=== PATIENT | male | born 1940 | race Caucasian/White ===

== ENCOUNTER 2021-09-16 13:04 | Inpatient (IN) | payer MEDICARE, OTHER, SELFPAY ==
[2021-09-16 13:21] VITALS: BMI 20.5
[2021-09-16 13:49] VITALS: BP 121/65; PULSE 74; RESP 18; TEMP 36.9; O2SAT 98
[2021-09-16] MEDS: Pantoprazole Sodium 40 MG Tablet PO (17:01)
[2021-09-16] MEDS: Cefdinir 300 MG Capsule PO (17:01)
[2021-09-16] MEDS: APIXABAN 5 MG TABLET PO (17:01)
[2021-09-16] MEDS: Senna/Docusate Sodium 1 Tablet PO (17:01)
--- NOTE | 2021-09-16 17:48 | NURSING ---
DR. TEODORA NOVAK CALLED FROM [facility] (R' SEEN WHILE AT [facility] FOR [facility]). RINKU HAD BEEN DC'D WHILE THERE. SHE REQUESTED LABS BE FAXED TOMORROW TO [phone]. DR ELENA AWARE. NURSING TO CALL TOMORROW TO UPDATE HER ELIQUIS HAS RESUMED.
[2021-09-16] MEDS: Menthol/Lanolin/Calamine/Znox 113 GM Tube 1 APPLIC TOPICAL (20:04)
[2021-09-16] MEDS: oxyCODONE 5 MG Tablet PO (20:04)
[2021-09-16] MEDS: Atorvastatin Calcium 20 MG Tablet PO (20:05)
[2021-09-16] MEDS: MELATONIN 10 MG TABLET 5 MG PO (20:08)
--- NOTE | 2021-09-16 20:51 | HP.PCM_ITS ---
HPI - General General Date of Admission: 09/16/21 HPI Narrative CATALINA MANCERA, is a 81 Male who presents with following: Catalina lives in [place], [place]. He has a son in [place], [place], and a daughter in [place], [place]. He flew in to [place], [place], to make the circuit and visit his children, grandchildren. 09/01/2021 - 09/09/2021 [facility]. Left leg pain, swelling, left lower extremity cellulitis/abscess, Pasturella bacteremia. Bedside incision and drainage left lower extremity. Vancomycin/Cefepime transitioned to Ceftriaxone, then deescalated to Cefdinir on discharge. 09/03/2021 Platelet transfusion for thrombocytopenia. Empiric steroid therapy for thrombocytopenia. Acute kidney injury improved with IV fluids, holding Losartan. Iron therapy started for anemia. 09/09/20[facility] [place] [place]. 09/16/2021 Admit to TCU with debility, here for rehabilitation, strengthening, prior to discharge home to [place], [place] with . Son lives in [place], and TCU is a lot closer than [place], [place]. [facility] Medical History (Updated 09/16/21 @ 21:[address] Roebrto Carlos Duenas MD) Anemia Atrial fibrillation Home Medications apixaban [Eliquis] 5 mg PO BID 09/16/21 [History Last Taken Unknown] ascorbic acid (vitamin C) [Vitamin C] 1,000 mg PO DAILY 09/16/21 [History Last Taken Unknown] cefdinir 300 mg PO BID 09/16/21 [History Last Taken Unknown] ezetimibe [Zetia] 10 mg PO DAILY 09/16/21 [History Last Taken Unknown] ferrous sulfate 325 mg PO DAILY 09/16/21 [History Last Taken Unknown] melatonin 3 mg PO QHS 09/16/21 [History Last Taken Unknown] oxycodone 5 mg PO Q4H PRN 09/16/21 [History Last Taken Unknown] pantoprazole 40 mg PO BID 09/16/21 [History Last Taken Unknown] polyethylene glycol 3350 [Miralax] 17 g PO DAILY 09/16/21 [History Last Taken Unknown] senna-docusate sodium 1 tab PO BID 09/16/21 [History Last Taken Unknown] simvastatin 40 mg PO QHS 09/16/21 [History Last Taken Unknown] tamsulosin [Flomax] 0.4 mg PO DAILY 09/16/21 [History Last Taken Unknown] Allergy/AdvReac Type Severity Reaction Status Date / Time aspirin AdvReac Hives Verified 09/16/21 13:45 Penicillins AdvReac PT UNSURE Verified 09/16/21 13:45 OF REACTION zolpidem [From Ambien] AdvReac Other Verified 09/16/21 13:45 Family History (Updated 09/16/21 @ 20:[address] Roberto Carlos Duenas MD) Mother Breast cancer Father Pancreatic cancer Surgical History (Updated 09/16/21 @ 20:[address] Roberto Carlos Duenas MD) History of coronary artery stent placement History of incision and drainage Social History (Updated 09/16/21 @ 20:[address] Roberto Carlos Dueans MD) household members: spouse Smoking Status: Former smoker alcohol intake: never substance use type: does not use ROS Constitutional Constitutional: Denies chills, fever(s) or weight gain ENT HEENT: Denies headache(s), nasal congestion or nasal discharge Cardiovascular Cardiovascular: Denies chest pain or palpitations Respiratory/Chest Respiratory/Chest: Denies cough, excessive phlegm production or shortness of breath with exertion Gastrointestinal Gastrointestinal: Denies abdominal pain, nausea or vomiting Genitourinary Genitourinary: Denies dysuria Musculoskeletal Musculoskeletal: Denies joint pain or joint swelling Integumentary Integumentary: Denies rash or wounds Neurologic Neurologic: Denies focal weakness, numbness or tingling Psychiatric Psychiatric: Denies anxiety, auditory hallucinations, depression, homicidal ideation or suicidal ideation Vital Signs Vital Signs Vital Signs: 09/16/21 13:49 09/16/21 14:23 Temperature 98.5 F Temperature Source Temporal Pulse Rate 74 Pulse Rhythm Regular Pulse Strength Normal (2+) Respiratory Rate 18 Respiratory Effort Normal Non-Labored Respiratory Depth Normal Respiratory Pattern Normal Blood Pressure 121/65 H Blood Pressure Mean 83 Blood Pressure Source Monitor Blood Pressure Position Sitting Blood Pressure Location Right Arm Pulse Ox 98 Oxygen Delivery Method Room Air Room Air Weight Weight: 61.405 kg Body Mass Index (BMI) 20.5 Physical Exam Const alert and oriented x3 General Appearance: cooperative HEENT normocephalic Eyes PERRL and EOMs intact bilaterally Neck supple, no JVD and no carotid bruits Resp normal respiratory effort, normal air movement and clear to auscultation bilater ally Cardio regular rate and regular rhythm GI normal to inspection, nondistended, normoactive bowel sounds, non-tender and non-distended Extremity normal capillary refill General Extremity: edema left Skin no rashes or lesions noted General Skin Exam: no breakdown Psych affect normal Appearance: appropriate Assessment & Plan Assessment/Plan (1) Debility: (2) Cellulitis of left lower extremity: (3) Abscess of left lower extremity: (4) Bacteremia: (5) Acute kidney injury: (6) Autoimmune thrombocytopenia: (7) Atrial fibrillation: (8) Iron deficiency anemia: (9) Hypertension: (10) Coronary artery disease: (11) Pulmonary nodules: (12) Elevated PSA: (13) Hyperlipidemia: (14) Gastroesophageal reflux disease: (15) Insomnia: (16) Benign prostate hyperplasia: PLAN: 81 year old male with below past medical history hospitalized for left lower extremity cellulitis/abscess, Pasturella bacteremia, complicated by acute kidney injury, autoimmune thrombocytopenia, anemia, admitted to TCU with debility, here for rehabilitation, strengthening, prior to discharge home to [place], [place] with . * Debility - PT/OT. * Pain - Tylenol 1000mg q6h prn pain (1-5), Oxycodone 5mg q4h prn pain (6-10). * Bowel - Miralax 17gm daily, Senna/colace 1 tablet bid. * Adult immunization - Administer prevnar 13, pneumovax 23, fluzone, covid19 vaccine as appropriate. * DVT prophylaxis - Not necessary, already eliquis. * Atrial fibrillation - Eliquis 5mg twice daily. * Vitamin C deficiency - Vitamin C 1000mg daily. * Hyperlipidemia - Atorvastatin 20mg qhs, Zetia 10mg daily. * Nutrition - Ensure Compact 118ml tidcm, MVI daily. * Iron deficiency anemia - Ferrous sulfate 325mg daily. * Insomnia - Melatonin 5mg qhs. * Skin irritation - Calmoseptine topical bid, Eucerin topical daily. * GERD - Pantoprazole 40mg daily. * BPH - Tamsulosin 0.4mg daily. * Thrombocytopenia - monitor.
[2021-09-17 05:56] LABS: Absolute Lymphocyte Count 1.12 X10^3/uL (0.83-4.51); Absolute Neutrophil Count 4.2 X10^3/uL (2.0-7.7); Basophil# 0.02 X10^3/uL; Basophil% 0.3 % (0-1); Eosinophil# 0.13 X10^3/uL; Eosinophils% 1.9 % (0-5); Hematocrit 25.3 % (40-54); Hemoglobin 7.5 g/dL (13.0-16.5); Lymphocyte # 1.12 X10^3/ul (0.83-4.51); Lymphocyte % 16.7 % (19-41); Mean Corp Hgb Conc 29.6 g/dL (32-36); Mean Corpuscular Hgb 29.9 pg (27.0-32.0); Mean Corpuscular Volume 100.8 fL (80-94); Monocyte# 1.28 X10^3/uL; Monocyte% 19.1 % (0-10); NRBC Flagged by Analyzer 0 % (0-5); Neutrophil # 4.15 X10^3/uL (2.7-7.7); Neutrophil % 61.9 % (47-70); Platelet Count 208 K/mm3 (150-450); RBC Distribution Width CV 15.9 % (11.6-14.6); RBC Distribution Width SD 58.3 fl (35.1-43.9); Red Blood Count 2.51 M/mm3 (4.6-6.2); White Blood Count 6.7 K/mm3 (4.4-11.0)
[2021-09-17 06:32] LABS: Anion Gap 5 (5-15); BUN 25 mg/dL (7-18); BUN/Creat Ratio 44.3 RATIO (10-20); Chloride 109 mmol/L (98-107); Creatinine, Serum 0.56 mg/dL (0.70-1.30); EST Glomerular Filtration Rate 148 mL/min (>60); Est Glom Filt Rate - Afr Amer 179 mL/min (>60); Estimated Creatinine Clearance 52.02 ml/min; Glucose 98 mg/dL (74-106); Potassium 4.7 mmol/L (3.5-5.1); Sodium Level 144 mmol/L (136-145)
[2021-09-17] MEDS: Senna/Docusate Sodium 1 Tablet PO ×2 (06:47→18:23)
[2021-09-17] MEDS: Polyethylene Glycol 3350 17 GM PACKET PO (06:47)
[2021-09-17] MEDS: Pantoprazole Sodium 40 MG Tablet PO (06:47)
[2021-09-17] MEDS: Ezetimibe 10 MG Tablet PO (06:47)
[2021-09-17] MEDS: APIXABAN 5 MG TABLET PO ×2 (06:47→18:23)
[2021-09-17] MEDS: Menthol/Lanolin/Calamine/Znox 113 GM Tube 1 APPLIC TOPICAL ×2 (06:47→18:22)
[2021-09-17] MEDS: Ascorbic Acid 500 MG Tablet 1000 MG PO (07:53)
[2021-09-17] MEDS: Tamsulosin HCl 0.4 MG Capsule PO (07:53)
[2021-09-17 11:00] VITALS: BP 111/51; PULSE 81; RESP 16; TEMP 37.3; O2SAT 97
--- NOTE | 2021-09-17 11:03 | WOUNDNOTE ---
wound photo: left lateral lower leg
[2021-09-17] MEDS: oxyCODONE 5 MG Tablet PO ×2 (11:17→21:37)
[2021-09-17] MEDS: Tuberculin,Purif.prot.deriv. 50 TU/ML Vial 0.1 ML ID (12:16)
[2021-09-17] MEDS: Multivitamins,Therapeutic Tablet 1 TABLET PO (12:16)
[2021-09-17] MEDS: Iron Polysaccharide Complex 150 MG CAPSULE PO (12:16)
--- NOTE | 2021-09-17 14:32 | PCM.PN.RX ---
Progress Note - Pharmacy Subjective: TCU Admission Objective: Allergies aspirin Adverse Reaction (Verified 09/16/21 13:45) Hives Penicillins Adverse Reaction (Verified 09/16/21 13:45) PT UNSURE OF REACTION zolpidem [From Ambien] Adverse Reaction (Verified 09/16/21 13:45) Other Current Medications Generic Name Dose Route Start Last Admin Trade Name Freq PRN Reason Stop Dose Admin Acetaminophen 1,000 mg 09/16/21 21:09 Acetaminophen 500 Mg Tablet PO Q6H PRN PRN Pain Score 1-5 Apixaban 5 mg 09/16/21 18:00 09/17/21 06:47 Apixaban 5 Mg Tablet PO 5 mg BID SENTHIL Administration Ascorbic Acid 1,000 mg 09/17/21 08:00 09/17/21 07:53 Ascorbic Acid 500 Mg Tablet PO 1,000 mg DAILYCM SENTHIL Administration Atorvastatin Calcium 20 mg 09/16/21 22:00 09/16/21 20:05 Atorvastatin Calcium 20 Mg Tablet PO 20 mg QHS SENTHIL Administration Calamine/Phenol 1 applic 09/16/21 22:00 09/17/21 06:47 Menthol/Lanolin/Calamine/Znox 113 Gm Tube TOPICAL 1 applic BID SENTHIL Administration Protocol Ezetimibe 10 mg 09/17/21 06:00 09/17/21 06:47 Ezetimibe 10 Mg Tablet PO 10 mg DAILY SENTHIL Administration Melatonin 5 mg 09/16/21 22:00 09/16/21 20:08 Melatonin 10 Mg Tablet PO 5 mg QHS SENTHIL Administration Multi-Ingredient Cream 1 applic 09/17/21 22:00 Mineral Oil/Petrolatum,White Jar TOPICAL DAILY SENTHIL Protocol Multivitamins 1 tablet 09/17/21 08:00 09/17/21 12:16 Multivitamins,Therapeutic Tablet PO 1 tablet BREAKFAST SENTHIL Administration Nutritional Formula (Lactose Free) 118 ml 09/16/21 17:45 09/17/21 12:20 Ensure Compact 118 Ml Liquid PO 118 ml TIDCM SENTHIL Administration Oxycodone HCl 5 mg 09/16/21 13:35 09/17/21 11:17 Oxycodone 5 Mg Tablet PO 5 mg Q4H PRN Administration Pain (Scale Score 6-10) Pantoprazole Sodium 40 mg 09/17/21 06:00 09/17/21 06:47 Pantoprazole Sodium 40 Mg Tablet PO 40 mg DAILY SENTHIL Administration Polyethylene Glycol 17 gm 09/17/21 06:00 09/17/21 06:47 Polyethylene Glycol 3350 17 Gm Packet PO 17 gm DAILY SENTHIL Administration Polysaccharide Iron Complex 150 mg 09/17/21 08:00 09/17/21 12:16 Iron Polysaccharide Complex 150 Mg Capsule PO 150 mg DAILYCM SENTHIL Administration Senna/Docusate Sodium 1 tablet 09/16/21 18:00 09/17/21 06:47 Senna/Docusate Sodium 1 Tablet PO 1 tablet BID SENTHIL Administration Tamsulosin HCl 0.4 mg 09/17/21 08:30 09/17/21 07:53 Tamsulosin Hcl 0.4 Mg Capsule PO 0.4 mg DAILY@0830 SENTHIL Administration Tuberculin PPD 0.1 ml 09/24/21 10:00 Tuberculin,Purif.Prot.Deriv. 50 Tu/Ml Vial ID 09/24/21 10:01 X1 ONE Problem List (Last Reviewed 09/16/21 @ 14:00 by Jody Galdamez) Benign prostate hyperplasia (Acute) Insomnia (Acute) Gastroesophageal reflux disease (Acute) Hyperlipidemia (Acute) Elevated PSA (Acute) Pulmonary nodules (Acute) Coronary artery disease (Acute) Hypertension (Chronic) Debility (Acute) Iron deficiency anemia (Acute) Atrial fibrillation (Acute) Autoimmune thrombocytopenia (Acute) Acute kidney injury (Acute) Bacteremia (Acute) Abscess of left lower extremity (Acute) Cellulitis of left lower extremity (Acute) Vital Signs Temp Pulse Resp BP Pulse Ox 98.5 F 74 18 121/65 H 98 09/16/21 13:49 09/16/21 13:49 09/16/21 13:49 09/16/21 13:49 09/16/21 13:49 Oxygen Delivery Method Room Air Weight: 61.405 kg Body Mass Index (BMI) 20.5 Sodium 144 mmol/L (136-145) 09/17/21 05:27 Potassium 4.7 mmol/L (3.5-5.1) 09/17/21 05:27 Chloride 109 mmol/L (98-107) H 09/17/21 05:27 Carbon Dioxide 30.0 mmol/L (21.0-32.0) 09/17/21 05:27 Anion Gap 5 (5-15) 09/17/21 05:27 BUN 25 mg/dL (7-18) H 09/17/21 05:27 Creatinine 0.56 mg/dL (0.70-1.30) L 09/17/21 05:27 Est GFR (MDRD) Af Amer 179 mL/min (>60) 09/17/21 05:27 Est GFR (MDRD) Non-Af 148 mL/min (>60) 09/17/21 05:27 BUN/Creatinine Ratio 44.3 RATIO (10-20) H 09/17/21 05:27 Glucose 98 mg/dL (74-106) 09/17/21 05:27 Assessment/Plan: 1. Pain: acetaminophen 1000mg PO Q6H PRN pain 1-5/10 and oxycodone 5mg PO Q4H PRN pain 6-10/10. Please continue to monitor for increased pain, PRN usage, constipation and respiratory depression. 2. Atrial fibrillation: apixaban 5mg PO BID. Please continue to monitor for S/S of bleeding and hemoglobin (last 7.5g/dL). *3. Hyperlipidemia: atorvastatin 20mg PO QHS and ezetimibe 10mg PO daily. Please consider ordering a lipid panel if clinically appropriate. Patient does not have one in the chart. Thanks. Please continue to monitor for muscle pain. 4. Iron deficiency anemia: Ferrex 150mg PO DAILYCM. Please continue to monitor hemoglobin, constipation and dark stools. 5. Insomnia: melatonin 5mg PO QHS. Please continue to monitor for excessive drowsiness. 6. GERD: pantoprazole 40mg PO daily. Please continue to monitor for S/S of GERD and diarrhea. 7. BPH: tamsulosin 0.4mg PO daily. Please continue to monitor for S/S of BPH and BP (last 121/65). 8. Vitamin C deficiency/nutrition: ascorbic acid 1000mg PO DAILYCM and multivitamin 1T PO breakfast. Please continue to monitor. Psychotropic Medications: None Unnecessary Medications: None Bowel Regimen: Miralax 17gm PO daily, senna/docusate 1T PO BID. Please continue to monitor for constipation. Date of Note:: 09/17/21
--- NOTE | 2021-09-17 16:03 | NURSING ---
L:eft message on nurse line for Dr. Iraheta, notfied her that the patient has resumed eliquis
--- NOTE | 2021-09-17 16:11 | NURSING ---
Today's labs faxed to Dr. Joan Iraheta's office.
--- NOTE | 2021-09-17 17:04 | CHAPLAIN ---
Type of Pastoral Visit _x__ Initial Visit ___ Follow-up Visit ___ On-call Visit ___ General Patient Visit ___ Spiritual Assessment ___ Family Conference ___ Bereavement ___ Rapid Response ___ Code Blue ___ Other (describe below) Pastoral Care Referral From _x__ Patient ___ Family ___ Nurse ___ Physician ___ Top Lift And Automatic Window Repairer ___ Turn Machine Operator ___ Other (describe below) Sacrament/Intervention _x__ Active listening ___ Anointing ___ Faith ___ Bereavement ___ Communion _x__ Christina exploration ___ _x__ Life review _x__ Prayer ___ Reconciliation ___ Sacrament of Sick _x__ Supportive presence ___ Wedding ___ Other (describe below) Pastoral Comments patient and family member very pleased to have spiritual care support; this machine woodworking sander and son of patient are acquainted and this was acknowledged and well received for future support; patient gives story of how he came to be in hospital, his life work and recent m[facility]p, his voodoo involvement, and hope for continued support; prayer welcomed
[2021-09-17] MEDS: Acetaminophen 500 MG Tablet 1000 MG PO (18:21)
[2021-09-17] MEDS: Midodrine HCl 5 MG Tablet 10 MG PO (21:37)
[2021-09-17] MEDS: MELATONIN 10 MG TABLET 5 MG PO (21:38)
[2021-09-17] MEDS: Atorvastatin Calcium 20 MG Tablet PO (21:38)
[2021-09-18 05:40] LABS: Hematocrit 23.7 % (40-54)
[2021-09-18] MEDS: Polyethylene Glycol 3350 17 GM PACKET PO (06:49)
[2021-09-18] MEDS: Senna/Docusate Sodium 1 Tablet PO ×2 (06:50→17:00)
[2021-09-18] MEDS: APIXABAN 5 MG TABLET PO ×2 (06:50→17:00)
[2021-09-18] MEDS: Ezetimibe 10 MG Tablet PO (06:50)
[2021-09-18] MEDS: Pantoprazole Sodium 40 MG Tablet PO (06:50)
[2021-09-18] MEDS: Menthol/Lanolin/Calamine/Znox 113 GM Tube 1 APPLIC TOPICAL ×2 (06:51→20:20)
[2021-09-18] MEDS: Midodrine HCl 5 MG Tablet 10 MG PO ×3 (08:16→17:00)
[2021-09-18] MEDS: oxyCODONE 5 MG Tablet PO ×2 (08:16→20:22)
[2021-09-18] MEDS: Iron Polysaccharide Complex 150 MG CAPSULE PO (08:16)
[2021-09-18] MEDS: Multivitamins,Therapeutic Tablet 1 TABLET PO (08:17)
[2021-09-18] MEDS: Ascorbic Acid 500 MG Tablet 1000 MG PO (08:17)
[2021-09-18] MEDS: Tamsulosin HCl 0.4 MG Capsule PO (08:17)
--- NOTE | 2021-09-18 11:21 | NURSING ---
This nurse order type in screen under wrong user name. updated Kimmy Simms adv to document in nursing note.
[2021-09-18] MEDS: Acetaminophen 500 MG Tablet 1000 MG PO (12:55)
[2021-09-18 12:56] VITALS: BP 131/55; PULSE 90
[2021-09-18 12:57] VITALS: BP 125/56; PULSE 90
[2021-09-18 15:18] VITALS: BP 98/58; PULSE 78; RESP 16; TEMP 36.5; O2SAT 97
[2021-09-18] MEDS: MELATONIN 10 MG TABLET 5 MG PO (20:21)
[2021-09-18] MEDS: Atorvastatin Calcium 20 MG Tablet PO (20:22)
[2021-09-19] MEDS: Polyethylene Glycol 3350 17 GM PACKET PO (05:44)
[2021-09-19] MEDS: APIXABAN 5 MG TABLET PO ×2 (05:44→17:47)
[2021-09-19] MEDS: Ezetimibe 10 MG Tablet PO (05:44)
[2021-09-19] MEDS: Pantoprazole Sodium 40 MG Tablet PO (05:44)
[2021-09-19] MEDS: Senna/Docusate Sodium 1 Tablet PO ×2 (05:45→17:47)
[2021-09-19] MEDS: Menthol/Lanolin/Calamine/Znox 113 GM Tube 1 APPLIC TOPICAL ×2 (05:51→17:47)
[2021-09-19] MEDS: oxyCODONE 5 MG Tablet PO ×2 (06:49→14:19)
[2021-09-19] MEDS: Midodrine HCl 5 MG Tablet 10 MG PO ×3 (07:29→17:47)
[2021-09-19] MEDS: Iron Polysaccharide Complex 150 MG CAPSULE PO (07:29)
[2021-09-19] MEDS: Ascorbic Acid 500 MG Tablet 1000 MG PO (07:29)
[2021-09-19] MEDS: Tamsulosin HCl 0.4 MG Capsule PO (07:29)
[2021-09-19 07:32] VITALS: BP 109/40; PULSE 62
[2021-09-19] MEDS: Multivitamins,Therapeutic Tablet 1 TABLET PO (14:19)
[2021-09-19 14:24] VITALS: BP 128/63; PULSE 63; RESP 18; TEMP 36.7; O2SAT 94
--- NOTE | 2021-09-19 14:45 | CASEMGMT ---
Social Work Met with patient to complete initial assessment. See assessment for details. Pt confirmed full code. MOLST form completed, communication to , placed in chart. Explained Medicare benefit. Pt does not have secondary insurance listed. Pt provided this worker with insurance card - sent to registration to add and verify. Encouraged to contact secondary insurance to ensure copay coverage. Pt explains the goal is to DC directly to [place] with or without . If is not ready to DC from her SNF before pt, pt will get the home ready. SW to assist with DC as able. Registration verified insurance. Cherelle Goldman, [employer] PRIMARY SUBSTANCE ABUSE COUNSELOR
[2021-09-19] MEDS: Atorvastatin Calcium 20 MG Tablet PO (21:11)
[2021-09-19] MEDS: Acetaminophen 500 MG Tablet 1000 MG PO (21:11)
[2021-09-19] MEDS: MELATONIN 10 MG TABLET 5 MG PO (21:11)
[2021-09-20 00:22] VITALS: RESP 16
[2021-09-20 06:26] LABS: Hematocrit 33.2 % (40-54); Hemoglobin 10.4 g/dL (13.0-16.5)
[2021-09-20] MEDS: Polyethylene Glycol 3350 17 GM PACKET PO (06:35)
[2021-09-20] MEDS: Ezetimibe 10 MG Tablet PO (06:35)
[2021-09-20] MEDS: Pantoprazole Sodium 40 MG Tablet PO (06:35)
[2021-09-20] MEDS: APIXABAN 5 MG TABLET PO ×2 (06:35→18:27)
[2021-09-20] MEDS: Senna/Docusate Sodium 1 Tablet PO ×2 (06:36→18:27)
[2021-09-20] MEDS: Menthol/Lanolin/Calamine/Znox 113 GM Tube 1 APPLIC TOPICAL ×2 (06:40→18:26)
[2021-09-20 08:28] VITALS: BP 122/71; PULSE 69; RESP 16; TEMP 37.1; O2SAT 96
[2021-09-20] MEDS: Tamsulosin HCl 0.4 MG Capsule PO (08:31)
[2021-09-20] MEDS: Multivitamins,Therapeutic Tablet 1 TABLET PO (08:31)
[2021-09-20] MEDS: Ascorbic Acid 500 MG Tablet 1000 MG PO (08:31)
[2021-09-20] MEDS: Midodrine HCl 5 MG Tablet 10 MG PO ×3 (08:31→18:25)
[2021-09-20] MEDS: Iron Polysaccharide Complex 150 MG CAPSULE PO (08:31)
[2021-09-20 10:00] VITALS: O2SAT 95
[2021-09-20] MEDS: Bisacodyl 5 MG Tablet 10 MG PO (11:45)
--- NOTE | 2021-09-20 11:47 | NURSING ---
Patient given dulcolax 10mg with prune juice at this time. Will monitor for results
--- NOTE | 2021-09-20 14:21 | NURSING ---
This nurse gave soap suds enema. Patient tolerated procedure well. Extra large results from enema. Patient states he feels much better.
[2021-09-20 15:34] VITALS: PULSE 83; RESP 16; O2SAT 96
[2021-09-20] MEDS: MELATONIN 10 MG TABLET 5 MG PO (21:05)
[2021-09-20] MEDS: Atorvastatin Calcium 20 MG Tablet PO (21:05)
[2021-09-21] MEDS: Acetaminophen 500 MG Tablet 1000 MG PO ×2 (04:14→20:53)
[2021-09-21] MEDS: Menthol/Lanolin/Calamine/Znox 113 GM Tube 1 APPLIC TOPICAL ×2 (04:23→17:44)
[2021-09-21] MEDS: Pantoprazole Sodium 40 MG Tablet PO (04:24)
[2021-09-21] MEDS: Senna/Docusate Sodium 1 Tablet PO (04:24)
[2021-09-21] MEDS: Polyethylene Glycol 3350 17 GM PACKET PO (04:24)
[2021-09-21] MEDS: APIXABAN 5 MG TABLET PO ×2 (04:25→17:44)
[2021-09-21] MEDS: Ezetimibe 10 MG Tablet PO (04:25)
--- NOTE | 2021-09-21 04:26 | NURSING ---
Presents in bed. A&Ox3. Requests PRN Tylenol for 5/10 pain. Pt. reports not sleeping well due to reluctant to take PRN pain medications. Education provided on available PRN medications, pharmacologic and non-pharmacologic interventions and encouraged to notify nurse when experiencing pain. Pt. states I know, I just don't like taking pain pills unless I really need them. Patient requests 0600 medications at this time in an effort to promote return to sleep, stating I hope this Tylenol will help my leg and I can get some rest. No distress observed or reported. Patient notified that if Tylenol ineffective other PRN pain medication is available. Patient expresses thanks, denies further requests. Call light in reach.
[2021-09-21] MEDS: Tamsulosin HCl 0.4 MG Capsule PO (08:29)
[2021-09-21] MEDS: Ascorbic Acid 500 MG Tablet 1000 MG PO (08:30)
[2021-09-21] MEDS: Iron Polysaccharide Complex 150 MG CAPSULE PO (08:30)
[2021-09-21] MEDS: Multivitamins,Therapeutic Tablet 1 TABLET PO (08:30)
[2021-09-21] MEDS: Midodrine HCl 5 MG Tablet 10 MG PO ×3 (08:30→17:44)
[2021-09-21 08:31] VITALS: BP 122/66; PULSE 70
[2021-09-21 13:58] VITALS: BP 121/65; PULSE 69; RESP 16; TEMP 36.4; O2SAT 97
--- NOTE | 2021-09-21 14:05 | NURSING ---
Patient showed nurse very red groin and tip of penis also red. Patient worried about herpes flare up. Spoke with Dr. Duenas and order given for Valtrex 1000mg dose now and will start Valtrex 1000mg dose daily. Patient made aware of new orders and very appreciative of update.
[2021-09-21] MEDS: Acyclovir 200 MG Capsule 400 MG PO (15:53)
[2021-09-21 17:47] VITALS: PULSE 86; RESP 16; O2SAT 97
[2021-09-21] MEDS: Atorvastatin Calcium 20 MG Tablet PO (20:51)
[2021-09-21] MEDS: MELATONIN 10 MG TABLET 5 MG PO (20:51)
--- NOTE | 2021-09-21 21:40 | NURSING ---
Addendum entered by Marsha Caldwell 09/21/21 23:56: Patient educated on new orders received from to elevate LLE on pillows, encouraged to wear Evgeny wraps as ordered during the day. Patient verbalizes understanding and accepts LLE to be elevated on pillows as ordered. No distress observed or reported. Denies pain. Call light in reach. Original Note: Dr. Duenas notified of patient concerns related to slow healing to LLE, continued drainage and swelling. New order received to educate patient on importance to elevate legs due to poor circulation/venous stasis and encourage compliance with evgeny wraps during the day. New order received to elevate LLE on pillows to promote circulation
[2021-09-22] MEDS: Polyethylene Glycol 3350 17 GM PACKET PO (06:01)
[2021-09-22] MEDS: Menthol/Lanolin/Calamine/Znox 113 GM Tube 1 APPLIC TOPICAL ×2 (06:02→17:04)
[2021-09-22] MEDS: APIXABAN 5 MG TABLET PO ×2 (06:04→17:04)
[2021-09-22] MEDS: Senna/Docusate Sodium 1 Tablet PO ×2 (06:04→17:03)
[2021-09-22] MEDS: Acyclovir 200 MG Capsule 400 MG PO ×2 (06:04→17:03)
[2021-09-22] MEDS: Ezetimibe 10 MG Tablet PO (06:04)
[2021-09-22] MEDS: Pantoprazole Sodium 40 MG Tablet PO (06:04)
[2021-09-22] MEDS: Midodrine HCl 5 MG Tablet 10 MG PO ×3 (08:12→17:04)
[2021-09-22] MEDS: Ascorbic Acid 500 MG Tablet 1000 MG PO (08:12)
[2021-09-22] MEDS: Tamsulosin HCl 0.4 MG Capsule PO (08:13)
[2021-09-22] MEDS: Iron Polysaccharide Complex 150 MG CAPSULE PO (08:13)
[2021-09-22] MEDS: Multivitamins,Therapeutic Tablet 1 TABLET PO (08:13)
--- NOTE | 2021-09-22 09:40 | WOUNDNOTE ---
wound photo: left lower leg
--- NOTE | 2021-09-22 09:41 | WOUNDNOTE ---
wound photo: left lateral lower leg
[2021-09-22] MEDS: Acetaminophen 500 MG Tablet 1000 MG PO ×3 (10:05→23:03)
--- NOTE | 2021-09-22 14:24 | NURSING ---
This nurse spoke with patient about the application of SCD's to help with swelling and prevention of blood clots. Patient states his left leg is very painful and he is worried about the possible abscess on lower leg. Patient told this nurse, once he finds out what is wrong with his left leg, he will try the SCD's. Charge nurse made aware.
[2021-09-22 14:28] VITALS: BP 112/61; PULSE 63; RESP 16; TEMP 36.4; O2SAT 97
[2021-09-22 14:49] VITALS: PULSE 63; RESP 16; O2SAT 97
--- NOTE | 2021-09-22 15:06 | NURSING ---
Resident and spouse, Dinorah, notified of 2 staff members testing positive for COVID.
--- NOTE | 2021-09-22 18:46 | NURSING ---
Patient transported to CT scan at 1600 via wheelchair. Back to floor at 1630. Son updated on patient status and appreciative of update.
[2021-09-22] MEDS: MELATONIN 10 MG TABLET 5 MG PO (20:23)
[2021-09-22] MEDS: Atorvastatin Calcium 20 MG Tablet PO (20:24)
[2021-09-23] MEDS: Pantoprazole Sodium 40 MG Tablet PO (06:14)
[2021-09-23] MEDS: Menthol/Lanolin/Calamine/Znox 113 GM Tube 1 APPLIC TOPICAL ×2 (06:14→17:51)
[2021-09-23] MEDS: Ezetimibe 10 MG Tablet PO (06:14)
[2021-09-23] MEDS: Acyclovir 200 MG Capsule 400 MG PO ×2 (06:14→17:52)
[2021-09-23] MEDS: APIXABAN 5 MG TABLET PO ×2 (06:14→17:52)
[2021-09-23] MEDS: Senna/Docusate Sodium 1 Tablet PO ×2 (06:14→17:52)
[2021-09-23] MEDS: Polyethylene Glycol 3350 17 GM PACKET PO (06:17)
[2021-09-23] MEDS: Midodrine HCl 5 MG Tablet 10 MG PO ×3 (08:14→17:52)
[2021-09-23] MEDS: Iron Polysaccharide Complex 150 MG CAPSULE PO (08:14)
[2021-09-23] MEDS: Tamsulosin HCl 0.4 MG Capsule PO (08:14)
[2021-09-23] MEDS: Multivitamins,Therapeutic Tablet 1 TABLET PO (08:14)
[2021-09-23] MEDS: Ascorbic Acid 500 MG Tablet 1000 MG PO (08:16)
--- NOTE | 2021-09-23 08:51 | NURSING ---
Addendum entered by Sammi Blancas 09/23/21 12:16: Called Dr. Oseguera's office and spoke with Nurse. She stated he was in a room at this time and took my number and would have him call back. Original Note: Paged Dr. Oseguera per Consult order awaiting return call.
[2021-09-23] MEDS: Acetaminophen 500 MG Tablet 1000 MG PO ×2 (10:55→21:02)
[2021-09-23 11:00] VITALS: BP 112/62; PULSE 77; RESP 18; TEMP 37.1; O2SAT 97
--- NOTE | 2021-09-23 12:50 | NURSING ---
Pt has appt at [facility] on 09/25/21 @ [address] to talk [address] Dr[address] Oseguera to see if pt would be able to go to appt or we need to reschedule. Left Message with Trinity at [facility] awaiting return call. [phone] ex [phone].
--- NOTE | 2021-09-23 16:10 | CHAPLAIN ---
Type of Pastoral Visit ___ Initial Visit _x__ Follow-up Visit ___ On-call Visit ___ General Patient Visit ___ Spiritual Assessment ___ Family Conference ___ Bereavement ___ Rapid Response ___ Code Blue ___ Other (describe below) Pastoral Care Referral From _x__ Patient ___ Family ___ Nurse ___ Physician ___ Child Support Case Officer ___ Salicylic Acid Blender ___ Other (describe below) Sacrament/Intervention _x__ Active listening ___ Anointing ___ Mandaeism ___ Bereavement ___ Communion ___ Christina exploration ___ ___ Life review _x__ Prayer ___ Reconciliation ___ Sacrament of Sick _x__ Supportive presence ___ Wedding ___ Other (describe below) Pastoral Comments patient very welcoming of spiritual care support; pt describes disappointing news of issues in his foot and a requirement for surgery and more time in the hospital; pt son is with him in room; pt relies much on christina in God for his help; pt welcomes prayer and more visits
[2021-09-23] MEDS: Atorvastatin Calcium 20 MG Tablet PO (21:03)
[2021-09-23] MEDS: MELATONIN 10 MG TABLET 5 MG PO (21:03)
[2021-09-24 05:37] LABS: Absolute Lymphocyte Count 1.12 X10^3/uL (0.83-4.51); Absolute Neutrophil Count 4.5 X10^3/uL (2.0-7.7); Basophil# 0.05 X10^3/uL; Basophil% 0.7 % (0-1); Eosinophils% 1.4 % (0-5); Hematocrit 34.1 % (40-54); Hemoglobin 10.1 g/dL (13.0-16.5); Lymphocyte # 1.12 X10^3/ul (0.83-4.51); Lymphocyte % 15.9 % (19-41); Mean Corp Hgb Conc 29.6 g/dL (32-36); Mean Corpuscular Hgb 28.7 pg (27.0-32.0); Mean Corpuscular Volume 96.9 fL (80-94); Mean Platelet Vol. 11.4 fl (6.2-12.0); Monocyte# 1.19 X10^3/uL; Monocyte% 16.9 % (0-10); NRBC Flagged by Analyzer 0 % (0-5); Neutrophil % 63.8 % (47-70); Platelet Count 138 K/mm3 (150-450); RBC Distribution Width CV 14.9 % (11.6-14.6); Red Blood Count 3.52 M/mm3 (4.6-6.2); White Blood Count 7.1 K/mm3 (4.4-11.0)
[2021-09-24 06:02] LABS: Anion Gap 2 (5-15); BUN 18 mg/dL (7-18); BUN/Creat Ratio 26.2 RATIO (10-20); Calcium,Total 7.7 mg/dL (8.5-10.1); Chloride 105 mmol/L (98-107); Creatinine, Serum 0.69 mg/dL (0.70-1.30); EST Glomerular Filtration Rate 118 mL/min (>60); Est Glom Filt Rate - Afr Amer 143 mL/min (>60); Estimated Creatinine Clearance 53.11 ml/min; Glucose 90 mg/dL (74-106); Potassium 4.7 mmol/L (3.5-5.1); Sodium Level 138 mmol/L (136-145)
[2021-09-24] MEDS: Acetaminophen 500 MG Tablet 1000 MG PO (06:15)
[2021-09-24] MEDS: Polyethylene Glycol 3350 17 GM PACKET PO (06:15)
[2021-09-24] MEDS: Senna/Docusate Sodium 1 Tablet PO (06:16)
[2021-09-24] MEDS: APIXABAN 5 MG TABLET PO (06:16)
[2021-09-24] MEDS: Acyclovir 200 MG Capsule 400 MG PO (06:16)
[2021-09-24] MEDS: Ezetimibe 10 MG Tablet PO (06:16)
[2021-09-24] MEDS: Pantoprazole Sodium 40 MG Tablet PO (06:16)
[2021-09-24] MEDS: Menthol/Lanolin/Calamine/Znox 113 GM Tube 1 APPLIC TOPICAL (06:17)
[2021-09-24] MEDS: 0.9% Saline Lock 10 ML Syringe IV (06:20)
[2021-09-24] MEDS: Midodrine HCl 5 MG Tablet 10 MG PO (08:08)
[2021-09-24] MEDS: Ascorbic Acid 500 MG Tablet 1000 MG PO (08:08)
[2021-09-24] MEDS: Multivitamins,Therapeutic Tablet 1 TABLET PO (08:08)
[2021-09-24] MEDS: Tamsulosin HCl 0.4 MG Capsule PO (08:08)
[2021-09-24] MEDS: Iron Polysaccharide Complex 150 MG CAPSULE PO (08:08)
--- NOTE | 2021-09-24 10:39 | NURSING ---
Left lower extremity wound/abscess, Pasturella bacteremia.
[2021-09-24 10:47] VITALS: BP 153/63; PULSE 71; RESP 18; TEMP 36.9; O2SAT 98
--- NOTE | 2021-09-24 10:58 | NURSING ---
Patient being transported to the Emergency Department at this time via wheelchair and TCU staff. Son is accompanying patient.
--- NOTE | 2021-09-24 11:34 | NURSING ---
This Nurse talked with Dr. Oseguera about consult for LLE abscess. Dr. Oseguera felt that he needed to be admitted and would like him to be sent to E.R. and if hospitalist felt that he needed to be consulted he would see him. Dr. Duenas updated.
--- NOTE | 2021-09-25 08:12 | DS.PCM_ITS ---
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 EMERGENT Consult: Yes MD Notified: Yes Date Notified: 09/23/21 Time Notified: 14:24 Method of Notification: Verbal Reason For Visit: LEFT LEG ABSCESS Diagnosis Discharge Diagnosis (1) Debility: Status: Acute Code(s): R53.81 - Other malaise (2) Cellulitis of left lower extremity: Status: Acute Code(s): L03.116 - Cellulitis of left lower limb (3) Abscess of left lower extremity: Status: Acute Code(s): L02.416 - Cutaneous abscess of left lower limb (4) Bacteremia: Status: Acute Code(s): R78.81 - Bacteremia (5) Acute kidney injury: Status: Acute Code(s): N17.9 - Acute kidney failure, unspecified (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 thrombocytopenic purpura (7) Atrial fibrillation: Status: Acute Code(s): I48.91 - Unspecified atrial fibrillation (8) Iron deficiency anemia: Status: Acute Code(s): D50.9 - Iron deficiency anemia, unspecified (9) Hypertension: Status: Chronic Code(s): I10 - Essential (primary) hypertension (10) Coronary artery disease: Status: Acute Code(s): I25.10 - Atherosclerotic heart disease of jena coronary artery without angina pectoris (11) Pulmonary nodules: Status: Acute Code(s): R91.8 - Other nonspecific abnormal finding of lung field (12) Elevated PSA: Status: Acute Code(s): R97.20 - Elevated prostate specific antigen [PSA] (13) Hyperlipidemia: Status: Acute Code(s): E78.5 - Hyperlipidemia, unspecified (14) Gastroesophageal reflux disease: Status: Acute Code(s): K21.9 - Gastro-esophageal reflux disease without esophagitis (15) Insomnia: Status: Acute Code(s): G47.00 - Insomnia, unspecified (16) Benign prostate hyperplasia: Status: Acute Code(s): N40.0 - Benign prostatic hyperplasia without lower urinary tract symptoms Medications at Discharge Home Medications apixaban [Eliquis] 5 mg PO BID 09/16/21 ascorbic acid (vitamin C) [Vitamin C] 1,000 mg PO DAILY 09/16/21 ezetimibe [Zetia] 10 mg PO DAILY 09/16/21 oxycodone 5 mg PO Q4H PRN 09/16/21 pantoprazole 40 mg PO BID 09/16/21 polyethylene glycol 3350 [Miralax] 17 g PO DAILY 09/16/21 tamsulosin [Flomax] 0.4 mg PO DAILY 09/16/21 acetaminophen 1,000 mg PO Q6H PRN 09/24/21 acyclovir 400 mg PO BID 09/24/21 atorvastatin 20 mg PO QHS 09/24/21 food supplemt, lactose-reduced [Ensure Compact] 118 ml PO TIDCM 09/24/21 lanolin gekazsw-tz-e.pet-ceres [Eucerin] 1 applic TOPICAL DAILY 09/24/21 melatonin 5 mg PO QHS 09/24/21 menthol-zinc oxide [Calmoseptine] 1 applic TOPICAL BID 09/24/21 midodrine 10 mg PO TIDCM 09/24/21 multivitamin 1 tab PO BREAKFAST 09/24/21 polysaccharide iron complex [Ferrex 150] 150 mg PO DAILY 09/24/21 sennosides-docusate sodium [Senokot-S] 1 tab-cap PO DAILY 09/24/21 Hospital Course Operations None Procedures None Summary of Care Provided Minutes Spent on Discharge: 30 Hospital Course: 81 year old male with below past medical history hospitalized for left lower extremity cellulitis/abscess, Pasturella bacteremia, complicated by acute kidney injury, autoimmune thrombocytopenia, anemia, admitted to TCU with debility, here for rehabilitation, strengthening, prior to discharge home to [place], [place] with . 09/22/2021 CT left lower extremity showed multiple large abscesses. 09/25/2021 Discharge to [facility] Emergency Department for evaluation, admission to hospital. Physical Exam Const alert and oriented x3 General Appearance: cooperative HEENT normocephalic Eyes PERRL and EOMs intact bilaterally Neck supple, no JVD and no carotid bruits Resp normal respiratory effort, normal air movement and clear to auscultation bilaterally Cardio regular rate and regular rhythm GI normal to inspection, nondistended, normoactive bowel sounds, non-tender and non-distended Extremity normal capillary refill General Extremity: Negative for edema Skin no rashes or lesions noted General Skin Exam: no breakdown Psych affect normal Appearance: appropriate Weight / BMI Weight Weight: 62.686 kg Body Mass Index (BMI) 20.5 ABG / Lab / Microbiology Data Result Diagrams: 09/24/21 05:15 09/24/21 05:15 Microbiology: Microbiology 09/18/21 13:53 Nasal Secretion SARS-CoV-2 Antigen (Rapid) - Final D/C Instructions Discharge Diet: No restrictions Discharge Activity: Return to Normal Activity, May Shower and Use Walker Weight Bearing Status: Weight bearing as tolerated Call your doctor if you observe: Fever of 101 or Higher, Inability to urinate, Inability to have a bowel movement, Shortness of breath, Dizziness, Fainting spells, Chest pain and Uncontrolled pain Additional Instructions: 09/25/2021 Discharge to [facility] Emergency Department for evaluation, admission to hospital. Meaningful Use Info Meaningful Use Diagnoses (Choose all that apply): None applicable Discharge Plan Admission Admit Date/Time: 09/16/21 13:04 Primary Reason for Your Visit: Debility. Attending Provider: Roberto Carlos Duenas Chi Consulting Providers: Devin Oseguera Instructions Additional Instructions / Restrictions: 09/25/2021 Discharge to [facility] Emergency Department for evaluation, admission to hospital. Discharge Orders/Prescriptions Prescriptions: No Action polyethylene glycol 3350 [Miralax] 17 gram Powder In Packet 17 g PO DAILY RF: 0 ascorbic acid (vitamin C) [Vitamin C] 500 mg Tablet 1,000 mg PO DAILY RF: 0 tamsulosin [Flomax] 0.4 mg Capsule 0.4 mg PO DAILY RF: 0 pantoprazole 40 mg Tablet,Delayed Release (Dr/Ec) 40 mg PO BID RF: 0 oxycodone 5 mg Tablet 5 mg PO Q4H PRN (Reason: Pain (Scale Score 6-10)) RF: 0 ezetimibe [Zetia] 10 mg Tablet 10 mg PO DAILY RF: 0 Eliquis 5 mg Tablet 5 mg PO BID RF: 0 multivitamin Tablet 1 tab PO BREAKFAST RF: 0 atorvastatin 20 mg Tablet 20 mg PO QHS RF: 0 polysaccharide iron complex [Ferrex 150] 150 mg iron Capsule 150 mg PO DAILY RF: 0 sennosides-docusate sodium [Senokot-S] 8.6-50 mg Tablet 1 tab-cap PO DAILY RF: 0 acyclovir 400 mg Tablet 400 mg PO BID RF: 0 acetaminophen 500 mg Tablet 1,000 mg PO Q6H PRN (Reason: PAIN SCALE 1-5) RF: 0 Ensure Compact Liquid 118 ml PO TIDCM RF: 0 midodrine 10 mg Tablet 10 mg PO TIDCM RF: 0 melatonin 5 mg Tablet 5 mg PO QHS RF: 0 Eucerin Cream 1 applic TOPICAL DAILY RF: 0 menthol-zinc oxide [Calmoseptine] 0.44-20.6 % Ointment 1 applic TOPICAL BID RF: 0 Referrals / Follow Up: LORIE LOPEZ [Other] Disposition Disposition (needs filled in before D/C Order can be placed): Acute Care Hospital
--- NOTE | 2021-09-26 08:32 | MDS.RN ---
Information for the mds was obtained from review of the clinical record, interview of resident, staff, and direct observation of resident's care.
== END 2021-09-24 11:00 | disposition short-term general hospital (02) | DRG 603 ==
PROVIDERS: Admitting Provider Family Medicine Geriatric Medicine; Referring Provider Family Medicine Geriatric Medicine; Visit Provider Family Medicine Geriatric Medicine
DX: L03.116 Cellulitis of left lower limb (principal); D69.6 Thrombocytopenia, unspecified; I48.91 Unspecified atrial fibrillation; K21.9 Gastro-esophageal reflux disease without esophagitis; D50.9 Iron deficiency anemia, unspecified; I25.10 Atherosclerotic heart disease of native coronary artery without angina pectoris; I10 Essential (primary) hypertension; N40.0 Benign prostatic hyperplasia without lower urinary tract symptoms; E78.5 Hyperlipidemia, unspecified; L02.416 Cutaneous abscess of left lower limb; Z79.01 Long term (current) use of anticoagulants; Z87.891 Personal history of nicotine dependence; Z79.899 Other long term (current) drug therapy
CPT/HCPCS: 36415; 36430; 80048; 85014; 85018; 85025; 86850; 86900; 86901; 86920; 86922; 87426; 97110; 97116; 97162; 97166; 97530; 97535; 97802; J7040; P9016; A4216; J1940

== ENCOUNTER 2021-09-19 08:32 | Outpatient (CLI) | payer MEDICARE, OTHER, SELFPAY ==
[2021-09-19] VITALS (8 sets, daily range): BP systolic 97–138; BP diastolic 56–78; PULSE 63–77; RESP 16–18; TEMP 36.6–37.6; O2SAT 98–100; BMI 20.5
[2021-09-19] MEDS: Furosemide 20 MG/2 ML VIAL IV (11:12)
== END 2021-09-19 23:59 | disposition short-term general hospital (02) ==
PROVIDERS: Referring Provider Family Medicine Geriatric Medicine; Visit Provider Family Medicine Geriatric Medicine
DX: D64.89 Other specified anemias (principal)
CPT/HCPCS: 36415; 36430; 86850; 86900; 86901; 86920; 86922; J7040; P9016; J1940

== ENCOUNTER 2021-09-22 14:42 | Outpatient (CLI) | payer MEDICARE, OTHER, SELFPAY ==
--- NOTE | 2021-09-22 14:50 | CT_ITS ---
We are attempting to reach an attending provider to discuss findings. An addendum with communication details will be sent when the communication is complete. STUDY: CT LEFT LOWER EXTREMITY WITH CONTRAST REASON FOR EXAM: Male, 81 years old. R22.42 RADIATION DOSAGE (If Supplied By Facility): CTDIvol = ( 15.35 ) mGy, DLP = ( 994.67 ) mGycm TECHNIQUE: Transaxial CT imaging of the left lower extremity was performed post contrast administration from the knee to the ankle joint. The examination was performed with intravenous administration of ISOVUE 370 100ml. Individualized dose optimization techniques were used for this CT. COMPARISON: None. FINDINGS: Multiple abscesses are seen in all compartments of the left lower leg the largest is in the posterior superficial compartment measuring 8.9 x 4.3 x 23 cm within the medial gastrocnemius muscle fascia. Subcutaneous soft tissue thickening and subcutis fat stranding are noted in the left lower leg consistent with cellulitis. CT/Extremity Lower WITH Contrast IMPRESSION: Extensive cellulitis and myositis in the left lower leg with formation of multiple abscesses in all compartments of the left lower leg, the largest is 8.9 x 4.3 x 23 cm within the medial gastrocnemius muscle fascia. Electronically Signed: Jaylin Carpenter MD at 0:48 EST Tel , Service support ,
== END 2021-09-22 23:59 | disposition short-term general hospital (02) ==
PROVIDERS: Referring Provider Family Medicine Geriatric Medicine; Visit Provider Family Medicine Geriatric Medicine
DX: R22.42 Localized swelling, mass and lump, left lower limb (principal)
CPT/HCPCS: 73701; Q9967

== ENCOUNTER 2021-09-24 11:05 | Inpatient (IN) | payer MEDICARE, OTHER, SELFPAY ==
[2021-09-24] VITALS (10 sets, daily range): BP systolic 119–149; BP diastolic 63–85; PULSE 65–100; RESP 14–18; TEMP 36.4–37.1; O2SAT 94–99; BMI 21.6; BMI 21.1
--- NOTE | 2021-09-24 12:30 | EKG12_ITS ---
Test Reason : ABCESS Blood Pressure : / mmHG Vent. Rate : 068 BPM Atrial Rate : 042 BPM P-R Int : 000 ms QRS Dur : 094 ms QT Int : 408 ms P-R-T Axes : 000 003 018 degrees QTc Int : 433 ms Atrial fibrillation Low voltage QRS Septal infarct , age undetermined Abnormal ECG Confirmed by LONI HAMLIN, DARRIUS ([id number]), market editor RITCHIE JANSEN ([id number]) on 09/25/2021 9:00:25 AM Referred By: SOHAM Confirmed By:DARRIUS IVEY MD
--- NOTE | 2021-09-24 12:30 | RAD_ITS ---
STUDY: X-RAY CHEST REASON FOR EXAM: Male, 81 years old. Medical clearance TECHNIQUE: Single AP portable view of the chest. COMPARISON: None. FINDINGS: EKG electrodes are seen. Increased markings are seen at the left lung base. Early infiltrate should be ruled out. Hyperinflation. There is no demonstrated pleural abnormality. Normal size heart. Normal mediastinum and shayna. Normal visualized pulmonary arteries. Normal visualized aortic arch and descending thoracic aorta. Normal visualized thoracic spine. Normal visualized ribs, clavicles, and shoulders. There is no demonstrated abnormality of the visualized soft tissue structures of the upper abdomen. RAD/Chest 1 View (Portable) IMPRESSION: Increased markings at the left lung base. This is suggestive of early infiltrate. Electronically Signed: Shelton Velásquez MD at 13:35 EST , Service support ,
--- NOTE | 2021-09-24 12:48 | EDS_ITS ---
HPI History of Present Illness Chief Complaint: Abscess Narrative Narrative: 81-year-old male initially transferred from [place] to the TCU for rehab. He was diagnosed with abscesses on the left lower extremity by CT scan. Apparently Dr. Duenas spoke with Dr. Oseguera who plans to do surgery. Patient was sent to the ER to be admitted. Patient feels otherwise well currently. Apparently the patient had positive blood cultures for Pasteurella and was on antibiotics but he does not recall the name of the antibiotics. He does not know if he had repeat blood cultures and he is not currently on any antibiotics that he knows of. [facility] Medical History Anemia Atrial fibrillation Home Medications apixaban [Eliquis] 5 mg PO BID 09/16/21 [History Last Taken Unknown] ascorbic acid (vitamin C) [Vitamin C] 1,000 mg PO DAILY 09/16/21 [History Last Taken Unknown] cefdinir 300 mg PO BID 09/16/21 [History Last Taken Unknown] ezetimibe [Zetia] 10 mg PO DAILY 09/16/21 [History Last Taken Unknown] ferrous sulfate 325 mg PO DAILY 09/16/21 [History Last Taken Unknown] melatonin 3 mg PO QHS 09/16/21 [History Last Taken Unknown] oxycodone 5 mg PO Q4H PRN 09/16/21 [History Last Taken Unknown] pantoprazole 40 mg PO BID 09/16/21 [History Last Taken Unknown] polyethylene glycol 3350 [Miralax] 17 g PO DAILY 09/16/21 [History Last Taken Unknown] senna-docusate sodium 1 tab PO BID 09/16/21 [History Last Taken Unknown] simvastatin 40 mg PO QHS 09/16/21 [History Last Taken Unknown] tamsulosin [Flomax] 0.4 mg PO DAILY 09/16/21 [History Last Taken Unknown] Allergy/AdvReac Type Severity Reaction Status Date / Time aspirin AdvReac Hives Verified 09/24/21 11:09 Penicillins AdvReac PT UNSURE Verified 09/24/21 11:09 OF REACTION zolpidem [From Ambien] AdvReac Other Verified 09/24/21 11:09 Family History Mother Breast cancer Father Pancreatic cancer Surgical History History of coronary artery stent placement History of incision and drainage Social History household members: spouse Smoking Status: Former smoker alcohol intake: never substance use type: does not use ROS ROS ED Constitutional Constitutional ED: Denies chills or fever(s) Eyes Eyes: Denies blurry vision or diplopia ENT ENT ED: Denies rhinorrhea or sore throat Cardiovascular Cardiovascular: Denies chest pain or palpitations Respiratory/Chest Respiratory/Chest: Denies cough or dyspnea Gastrointestinal Gastrointestinal: Denies abdominal pain, nausea or vomiting Genitourinary Genitourinary ED: Denies dysuria or hematuria Musculoskeletal Musculoskeletal: Reports other Details: Left leg pain and swelling Integumentary Reports abscess Neurologic Neurologic: Denies headache(s) or paresthesias EXAM Physical Exam Const Vital Signs: 09/24/21 11:06 09/24/21 11:11 09/24/21 12:49 Temperature 97.7 F L Temperature Source Oral Pulse Rate 67 Respiratory Rate 14 Respiratory Effort Normal Non-Labored Respiratory Pattern Normal Blood Pressure 134/69 H Blood Pressure Mean 90 Pulse Ox 99 Oxygen Delivery Method Room Air Room Air 09/24/21 13:23 Temperature 98.4 F Temperature Source Temporal Pulse Rate 66 Respiratory Rate 18 Respiratory Effort Respiratory Pattern Blood Pressure 149/79 H Blood Pressure Mean 102 Pulse Ox 99 Oxygen Delivery Method Room Air Positive well nourished General Appearance ED: NAD HEENT Reports moist mucous membranes Negative for trauma Eyes PERRL and EOMs intact bilaterally Resp normal respiratory effort and clear to auscultation bilaterally Cardio regular rate and regular rhythm Neuro oriented x3 and CN's II-XII intact bilaterally Sensorium / Orientation: alert Motor Exam: strength 5/5 throughout Psych mental status grossly normal Skin Skin Narrative: Left lower extremity swelling in the left calf with clean dry and intact dressing. No lymphangitic streaking. MDM MDM MDM Narrative Medical decision making narrative: Patient presenting with abscess in the left lower extremity. This was confirmed with CT of the earlier. It does affect different compartments. Blood work is obtained and shows no leukocytosis. Hemoglobin hematocrit are stable. Renal function is normal. Potassium slightly high at 5.3 without any EKG changes. EKG shows atrial fibrillation with a ventricular to 68 bpm. Chest x-ray on my interpretation shows no acute cardiopulmonary process and the radiologist does agree. PT slightly prolonged at 16.5, PTT prolonged at 36.9. Patient has elevated LFTs and his AST is 76, ALT 99, alk phos today is 159. Bilirubin within normal limits. Patient is not having abdominal pain. I do not have comparison labs from previous hospital to compare these to. Lactic acid is 1.4. High-sensitivity troponin 16. I spoke with Dr. Oseguera to confirm that he was going to do surgery on this patient and he did confirm this. I spoke with the hospitalist to admit the patient. He recommended starting vancomycin, clindamycin, cefepime on the patient. This was ordered. Patient requested Tylenol and did not want anything more for pain. He is admitted in stable condition. Impression: 1. Left lower extremity abscess Lab Data Attestation: I reviewed the patient's lab results. Labs: Laboratory Results - last 24 hr 09/24/21 09/24/21 09/24/21 12:20 12:20 12:20 WBC 8.5 RBC 3.86 L Hgb 11.5 L Hct 37.4 L MCV 96.9 H MCH 29.8 MCHC 30.7 L RDW Std Deviation 53.0 H RDW Coeff of Duarte 15.0 H Plt Count 159 MPV 11.6 Immature Gran % (Auto) 0.800 Neut % (Auto) 72.0 H Lymph % (Auto) 14.0 L [place] % (Auto) 11.9 H Eos % (Auto) 0.8 Baso % (Auto) 0.5 Absolute Neuts (auto) 6.1 Absolute Lymphs (auto) 1.19 Nucleated RBC % 0 PT 16.5 H INR 1.4 APTT 36.9 H Sodium 135 L Potassium 5.3 H Chloride 102 Carbon Dioxide 29.0 Anion Gap 4 L BUN 18 Creatinine 0.60 L Estim Creat Clear Calc 54.56 Est GFR (MDRD) Af Amer 167 Est GFR (MDRD) Non-Af 138 BUN/Creatinine Ratio 30.0 H Glucose 85 Lactic Acid Calcium 8.2 L Total Bilirubin 0.60 AST 76 H ALT 99 H Alkaline Phosphatase 159 H Troponin I High Sens 16 Total Protein 5.6 L Albumin 1.8 L Globulin 3.8 Albumin/Globulin Ratio 0.5 L 09/24/21 12:20 WBC RBC Hgb Hct MCV MCH MCHC RDW Std Deviation RDW Coeff of Duarte Plt Count MPV Immature Gran % (Auto) Neut % (Auto) Lymph % (Auto) [place] % (Auto) Eos % (Auto) Baso % (Auto) Absolute Neuts (auto) Absolute Lymphs (auto) Nucleated RBC % PT INR APTT Sodium Potassium Chloride Carbon Dioxide Anion Gap BUN Creatinine Estim Creat Clear Calc Est GFR (MDRD) Af Amer Est GFR (MDRD) Non-Af BUN/Creatinine Ratio Glucose Lactic Acid 1.4 Calcium Total Bilirubin AST ALT Alkaline Phosphatase Troponin I High Sens Total Protein Albumin Globulin Albumin/Globulin Ratio Discharge Plan Triage Chief Complaint: Abscess ED Provider: Yassine Guerra Dx/Rx/DC Orders Prescriptions: No Action polyethylene glycol 3350 [Miralax] 17 gram Powder In Packet 17 g PO DAILY RF: 0 melatonin 3 mg Tablet 3 mg PO QHS RF: 0 simvastatin 40 mg Tablet 40 mg PO QHS RF: 0 ascorbic acid (vitamin C) [Vitamin C] 500 mg Tablet 1,000 mg PO DAILY RF: 0 tamsulosin [Flomax] 0.4 mg Capsule 0.4 mg PO DAILY RF: 0 pantoprazole 40 mg Tablet,Delayed Release (Dr/Ec) 40 mg PO BID RF: 0 ferrous sulfate 325 mg (65 mg iron) Tablet 325 mg PO DAILY RF: 0 cefdinir 300 mg Capsule 300 mg PO BID RF: 0 oxycodone 5 mg Tablet 5 mg PO Q4H PRN (Reason: Pain (Scale Score 6-10)) RF: 0 senna-docusate sodium Tablet 1 tab PO BID RF: 0 ezetimibe [Zetia] 10 mg Tablet 10 mg PO DAILY RF: 0 Eliquis 5 mg Tablet 5 mg PO BID RF: 0
[2021-09-24 12:50] LABS: Absolute Lymphocyte Count 1.19 X10^3/uL (0.83-4.51); Absolute Neutrophil Count 6.1 X10^3/uL (2.0-7.7); Basophil# 0.04 X10^3/uL; Basophil% 0.5 % (0-1); Eosinophil# 0.07 X10^3/uL; Eosinophils% 0.8 % (0-5); Hematocrit 37.4 % (40-54); Hemoglobin 11.5 g/dL (13.0-16.5); Lymphocyte # 1.19 X10^3/ul (0.83-4.51); Mean Corp Hgb Conc 30.7 g/dL (32-36); Mean Corpuscular Hgb 29.8 pg (27.0-32.0); Mean Corpuscular Volume 96.9 fL (80-94); Mean Platelet Vol. 11.6 fl (6.2-12.0); Monocyte# 1.01 X10^3/uL; Monocyte% 11.9 % (0-10); NRBC Flagged by Analyzer 0 % (0-5); Neutrophil # 6.11 X10^3/uL (2.7-7.7); Platelet Count 159 K/mm3 (150-450); Red Blood Count 3.86 M/mm3 (4.6-6.2); White Blood Count 8.5 K/mm3 (4.4-11.0)
[2021-09-24 13:01] LABS: International Normalized Ratio 1.4; Prothrombin Time (Protime)PT. 16.5 SECONDS (11.7-14.9)
[2021-09-24 13:02] LABS: Lactic Acid 1.4 mmol/L (0.4-1.9); Partial Thromboplast Time 36.9 Seconds (24.1-36.2)
[2021-09-24 13:04] LABS: ALB/GLOB Ratio 0.5 RATIO (0.9-2.4); AST(SGOT) 76 U/L (15-37); Alanine Aminotransfer ALT/SGPT 99 U/L (16-61); Albumin, Serum 1.8 g/dL (3.2-5.0); Alkaline Phosphatase 159 U/L (45-117); Anion Gap 4 (5-15); BUN 18 mg/dL (7-18); Calcium,Total 8.2 mg/dL (8.5-10.1); Chloride 102 mmol/L (98-107); EST Glomerular Filtration Rate 138 mL/min (>60); Est Glom Filt Rate - Afr Amer 167 mL/min (>60); Estimated Creatinine Clearance 54.56 ml/min; Globulin 3.8 g/dL (2.2-4.2); Glucose 85 mg/dL (74-106); Potassium 5.3 mmol/L (3.5-5.1); Protein, Total 5.6 g/dL (6.4-8.2); Sodium Level 135 mmol/L (136-145); Troponin-I HS 16 pg/mL (3.0-78.0)
[2021-09-24 14:06] LABS: Bacteria 0 SEEN /hpf (None Seen); Mucous, Urine 0 SEEN /hpf (<or=2+); Red Blood Cells-Urine 0 SEEN /hpf (0-5); Squamous Epithelial Cells - UA 0 SEEN /hpf (0-5); White Blood Cells 0 SEEN /hpf (0-5)
--- NOTE | 2021-09-24 14:07 | HP.PCM.HOS_ITS ---
[facility] - General General Date of Service: 09/24/21 Chief Complaint: Left leg draining swelling, fluid draining, abscess, since August 30, 2021 HPI Narrative CATALINA MANCERA, is a 81 M who was sent to ER from TCU for left lower extremity abscess. Prior to that, patient was admitted in TCU for rehab from [facility] where he was admitted for left leg pain, swelling, left lower extremity cellulitis abscess from Pasteurella bacteremia. There he had bedside incision and drainage. Patient was treated with vancomycin cefepime transition to ceftriaxone and discharged on cefdinir. Patient also had platelet transfusion and empiric steroid therapy on 09/03 for thrombocytopenia. Patient had acute kidney injury which improved with IV fluid normal saline, losartan on hold. On iron for chronic anemia. Patient has drainage from previous incision and drainage, denies any pain but has swelling of left leg below knee. He further stated his swelling of left lower extremity was 3 times bigger when he was admitted in [facility]. Has left inguinal lymph node swelling mildly painful. In the ED, patient had a spontaneous drainage of dirty tissue seropurulent fluid/purulent fluid from posterior aspect of left calf from previous incision site. Dr. Oseguera is already consulted. No fever while in TCU. Blood pressure in normal range. No hypoxia or tachypnea. Labs reviewed. Lactic acid normal. Platelet count 1 59,000. No leukocytosis. Mild hypokalemia calcium 5.3. Patient is started on IV antibiotic PFSH Medical History Anemia Atrial fibrillation Home Medications apixaban [Eliquis] 5 mg PO BID 09/16/21 [History Last Taken Unknown] ascorbic acid (vitamin C) [Vitamin C] 1,000 mg PO DAILY 09/16/21 [History Last Taken Unknown] cefdinir 300 mg PO BID 09/16/21 [History Last Taken Unknown] ezetimibe [Zetia] 10 mg PO DAILY 09/16/21 [History Last Taken Unknown] ferrous sulfate 325 mg PO DAILY 09/16/21 [History Last Taken Unknown] melatonin 3 mg PO QHS 09/16/21 [History Last Taken Unknown] oxycodone 5 mg PO Q4H PRN 09/16/21 [History Last Taken Unknown] pantoprazole 40 mg PO BID 09/16/21 [History Last Taken Unknown] polyethylene glycol 3350 [Miralax] 17 g PO DAILY 09/16/21 [History Last Taken Unknown] senna-docusate sodium 1 tab PO BID 09/16/21 [History Last Taken Unknown] simvastatin 40 mg PO QHS 09/16/21 [History Last Taken Unknown] tamsulosin [Flomax] 0.4 mg PO DAILY 09/16/21 [History Last Taken Unknown] Allergy/AdvReac Type Severity Reaction Status Date / Time aspirin AdvReac Hives Verified 09/24/21 11:09 Penicillins AdvReac PT UNSURE Verified 09/24/21 11:09 OF REACTION zolpidem [From Ambien] AdvReac Other Verified 09/24/21 11:09 Family History Mother Breast cancer Father Pancreatic cancer Surgical History History of coronary artery stent placement History of incision and drainage Social History household members: spouse Smoking Status: Former smoker alcohol intake: never substance use type: does not use ROS ROS Narrative Constitutional: Reports fatigue and weakness HEENT: Reports systems reviewed and no addt'l complaints, except as documented Respiratory/Chest: Denies chest pain, shortness of breath at rest or with exertion. Cardiac stents Gastrointestinal: Denies coffee ground emesis, hematemesis or vomiting Genitourinary: Denies burning urination or new urinary tract symptoms Musculoskeletal: Left lower extremity swelling and abscesses as mentioned in HPI. Mainly limited range of motion Neurologic: Denies seizure-like activity skin: Abscess admission HPI Endocrinology: Reports systems reviewed and no addt'l complaints, except as documented Hematologic/Lymphatic: History of recent thrombocytopenia. Denies diabetes mellitus. Reports systems reviewed and no addt'l complaints, except as documented Rest 14 ROS are negative except as mentioned in HPI Vital Signs Vital Signs Vital Signs: 09/24/21 11:06 09/24/21 11:11 09/24/21 12:49 Temperature 97.7 F L Temperature Source Oral Pulse Rate 67 Respiratory Rate 14 Respiratory Effort Normal Non-Labored Respiratory Pattern Normal Blood Pressure 134/69 H Blood Pressure Mean 90 Pulse Ox 99 Oxygen Delivery Method Room Air Room Air 09/24/21 13:23 Temperature 98.4 F Temperature Source Temporal Pulse Rate 66 Respiratory Rate 18 Respiratory Effort Respiratory Pattern Blood Pressure 149/79 H Blood Pressure Mean 102 Pulse Ox 99 Oxygen Delivery Method Room Air Weight Weight: 141 lb 15.643 oz Body Mass Index (BMI) 21.6 Physical Exam Narrative General: Alert, Oriented x3, Cooperative HEENT: Atraumatic, PERRLA, EOMI, Normocephalic Oral: No Gingival or Mucosal Lesions/ Ulcerations Neck: Supple, No JVD, Negative Carotid Bruits Lungs: Air entry diminished in bilateral lung bases. No crepitation/rhonchi Cardiovascular: Regular rate, Regular Rhythm, Normal S1, Normal S2, No murmurs Abdomen: Bowel Sounds Present, Soft, Non Tender, Non-Distended : No renal angle tenderness. No suprapubic tenderness. Extremities: Left lower extremity swelling from calf below, Capillary Refill Less than 3 Seconds Skin: Swelling of left leg below knee mainly over calf region. Spontaneous drainage of seropurulent fluid, foul-smelling. No tenderness.Left inguinal adenopathy, size about 3 x 4 cm mildly tender. Musculoskeletal: LLE swelling. No knee tenderness. ROM restricted over left knee Neurological: Cranial nerves II-XII grossly intact, DTR 2+/4 except left knee. Psych/Mental Status: Normal Affect, Appropriate. Results Lab / Micro Data Result Diagrams: 09/24/21 12:20 09/24/21 12:20 Labs: Laboratory Results - last 24 hr 09/24/21 12:20: WBC 8.5, RBC 3.86 L, Hgb 11.5 L, Hct 37.4 L, MCV 96.9 H, MCH 29.8, MCHC 30.7 L, RDW Std Deviation 53.0 H, RDW Coeff of Durate 15.0 H, Plt Count 159, MPV 11.6, Immature Gran % (Auto) 0.800, Neut % (Auto) 72.0 H, Lymph % (Auto) 14.0 L, [place] % (Auto) 11.9 H, Eos % (Auto) 0.8, Baso % (Auto) 0.5, Absolute Neuts (auto) 6.1, Absolute Lymphs (auto) 1.19, Nucleated RBC % 0 09/24/21 12:20: PT 16.5 H, INR 1.4, APTT 36.9 H 09/24/21 12:20: Sodium 135 L, Potassium 5.3 H, Chloride 102, Carbon Dioxide 29.0, Anion Gap 4 L, BUN 18, Creatinine 0.60 L, Estim Creat Clear Calc 54.56, Est GFR (MDRD) Af Amer 167, Est GFR (MDRD) Non-Af 138, BUN/Creatinine Ratio 30.0 H, Glucose 85, Calcium 8.2 L, Total Bilirubin 0.60, AST 76 H, ALT 99 H, Alkaline Phosphatase 159 H, Troponin I High Sens 16, Total Protein 5.6 L, Albumin 1.8 L, Globulin 3.8, Albumin/Globulin Ratio 0.5 L 09/24/21 12:20: Lactic Acid 1.4 Radiology Impression Chest X-Ray 09/24/21 12:30 IMPRESSION: Increased markings at the left lung base. This is suggestive of early infiltrate. Electronically Signed: Shelton Velásquez MD at 13:35 EST , Service support , Assessment & Plan Assessment/Plan (1) Cellulitis of left lower extremity: (2) Abscess of left lower extremity: PLAN: 1. Multiple abscesses and myositis of left lower leg in all compartments: Patient is being admitted in [facility]. Hemodynamically blood pre ssure and heart rate in normal limits. No lactic acidosis leukocytosis. CT lower extremity with IV contrast reviewed shows extensive cellulitis and myositis of left lower leg with largest one 8.9 x 4.3 x 23 cm within the medial gastrocnemius and muscle fascia. Antibiotics discussed with ID. Started on IV vancomycin, cefepime and clindamycin. Patient is allergic to penicillin. Discussed with Dr. Oseguera and he is consulted and OR in afternoon. ID is consulted. Patient is moderate perioperative risk stable cardiac extent. Chest x-ray individually reviewed does not show concerning features although reported left lung base early infiltrate, probably atelectasis. 2. Coronary artery status post stents with history of chronic A. fib: Patient does not have history of IN but was found abnormal stress test therefore had cardiac stents. No recent chest pain, angina or shortness of breath. Patient is active and MET is more than 4 MET. Twelve-lead EKG A. fib, low voltage, 68 bpm. QTc 433 ms. Patient is on apixaban 5 mg twice daily and will hold it. Last dose probably evening. 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 Today, platelet count is 1 59,000. We will hold Eliquis for surgery. 4. Chronic iron deficiency anemia: Continue iron supplement. H&H 11.5/37.4. 5. Recent history of MARISEL: Resolved with IV fluid in [facility]. 6. Other comorbidities include BPH, GERD, hypertension, recent debility due to left lower leg abscess and infection: Patient will need rehab after surgery. Blood pressure is controlled most recent 137/85. VTE prophylaxis: Hold Eliquis now; resume 36 to 48 hours after surgery after adequate perioperative hemostasis. Living will/advanced directive/end of life care: Patient does have living will or advanced directive. His son Torsten is power of finance attorney for health. After discussion of benefits/risks procedures involved with full code, DNR CC arrest and DNR CC, the patient opted for full code. Patient does want artificial life support including intubation, tube feed, ventilator and/chest compression, central venous catheter, vasopressor and DC shock if needed Total time spent in [id number] encounter in discussion of advanced directive 16 minutes. Charges/Coding Visit Charges Inpatient E&M: 82318 Init Hosp L3 Procedures Hospitalists Procedures: 05050 Advncd Care Plan 30 Min
[2021-09-24 14:08] LABS: Color, Urine Yellow (Yellow); Glucose, Dipstick Normal (Normal); Ketone-Dipstick Negative (Negative); Leukocyte Esterase-Dipstick Negative /ul (Negative); Nitrite-Dipstick Negative (Negative); Occult Blood-Urine Negative /ul (Negative); Protein-Dipstick Negative (Negative); Urine Bilirubin Dipstick Negative (Negative); Urine Clarity Clear (Clear); Urine Urobilinogen Normal (Normal)
[2021-09-24 14:33] LABS: Magnesium 2.4 mg/dL (1.6-2.6); Phosphorus 3.3 mg/dL (2.5-4.9)
[2021-09-24] MEDS: Acetaminophen 500 MG Tablet 1000 MG PO (14:34)
--- NOTE | 2021-09-24 14:39 | NURSING ---
MED SURG KYARA ABSCESS
[2021-09-24 14:53] LABS: CPK Total, Creatine Kinase 32 U/L (39-308)
[2021-09-24] MEDS: Vancomycin IV 1,000 MG/200 ML BAG 200 MG IV (15:41)
[2021-09-24 16:11] LABS: M R Staph aureus DNA By PCR Negative (Negative); Probe Check PASS; Specimen Processing Control PASS; Staph aureus DNA By PCR NEGATIVE (Negative)
--- NOTE | 2021-09-24 16:14 | CHAPLAIN ---
Type of Pastoral Visit ___ Initial Visit ___ Follow-up Visit ___ On-call Visit _x__ General Patient Visit ___ Spiritual Assessment ___ Family Conference ___ Bereavement ___ Rapid Response ___ Code Blue ___ Other (describe below) Pastoral Care Referral From ___ Patient _x__ Family ___ Nurse ___ Physician ___ Recreational Programs Director ___ Voltage Regulator Assembler ___ Other (describe below) Sacrament/Intervention _x__ Active listening ___ Anointing ___ Buddhist ___ Bereavement ___ Communion ___ Christina exploration ___ ___ Life review _x__ Prayer ___ Reconciliation ___ Sacrament of Sick _x__ Supportive presence ___ Wedding ___ Other (describe below) Pastoral Comments patient waiting for a room to open up and surgery to be scheduled; support, listening ear, prayer given
--- NOTE | 2021-09-24 16:59 | CASEMGMT ---
RN CM Assessment Introduced role of RN CM to patient's Lashay Greco via phone. Unable to complete RNCM IA with patient as patient and son Torsten at bedside getting moved up to patient room on floor. Care providers, pharmacy, and demographics verified. Admit Dx: Deep tissue infection, necrotizing fascitis Re-Admit: No Barriers/Issues: Patient and Lashay down from [place], [place] visiting when both became ill. Lashay currently admitted to SNF in [facility] where Dtr Cielo lives. Plan for to DC from SNF at the end of the week and will return to [facility] while continues to stay here until better. Enrico Sarmiento lives close to hospital. Per MD H&P: Patient admitted to TCU for rehab from [facility] where he was admitted for left leg pain, swelling, left lower extremity cellulitis abscess from Pasteurella bacteremia. There he had bedside incision and drainage. Patient was treated with vancomycin cefepime transition to ceftriaxone and discharged on cefdinir. Patient also had platelet transfusion and empiric steroid therapy on 09/03 for thrombocytopenia. Patient had acute kidney injury which improved with IV fluid normal saline, losartan on hold. On iron for chronic anemia. PCP: In [place]- unable to verify if Dr Arnulfo Jordan is the current. Specialists: None Insurance: [employer] A/B, [employer] Benefit: Yes LNOK: Lashay Greco, Dtr Cielo Judievenancio Living Arrangements: Lives with in [facility]-address on demographics correct. ADL?s: Independent with ambulation and ADLs. Transportation: Both patient and drive. DME: None HHC: None SNF: Current TCU Goal: Return to TCU DC PLAN: Return to TCU. RIANNA Campbell
--- NOTE | 2021-09-24 17:54 | WOUNDNOTE ---
wound photo: left calf
--- NOTE | 2021-09-24 17:55 | WOUNDNOTE ---
wound photo: left calf
--- NOTE | 2021-09-24 17:55 | WOUNDNOTE ---
wound photo: left lateral lower leg
[2021-09-24] MEDS: 0.9% Normal Saline 1,000 ML 100 ML IV (18:00)
--- NOTE | 2021-09-24 18:50 | PCM.RX.CS ---
Consult Pharmacy has been consulted to manage selected antiobiotic: Vancomycin Type of Consult: New start Suspected Infection: Skin/Soft tissue Labs: Sodium 135 mmol/L (136-145) L 09/24/21 12:20 Potassium 5.3 mmol/L (3.5-5.1) H 09/24/21 12:20 Chloride 102 mmol/L (98-107) 09/24/21 12:20 Carbon Dioxide 29.0 mmol/L (21.0-32.0) 09/24/21 12:20 Anion Gap 4 (5-15) L 09/24/21 12:20 BUN 18 mg/dL (7-18) 09/24/21 12:20 Creatinine 0.60 mg/dL (0.70-1.30) L 09/24/21 12:20 Est GFR (MDRD) Af Amer 167 mL/min (>60) 09/24/21 12:20 Est GFR (MDRD) Non-Af 138 mL/min (>60) 09/24/21 12:20 BUN/Creatinine Ratio 30.0 RATIO (10-20) H 09/24/21 12:20 Glucose 85 mg/dL (74-106) 09/24/21 12:20 Goal Trough: 15-20 mcg/mL Pharmacy Plan for Drug Dosing: NEW START IV VANCOMYCIN Consulting Physician: Dr. Sutton Indication: SSTI/ Wound infection Goal Trough: 15-20 SrCr: 0.6 CrCl: 54 mL/min Comments: 1000mg IV x1 given in ED 09/24/21 @1540 Vancomcyin Dose: 500mg IV Q12hr to start 09/25/21 @0400 Pending Level: 09/26/20 @0330, prior to 4th total dose per protocol Pharmacy Service will continue to monitor and adjust dosing as required.
--- NOTE | 2021-09-24 21:39 | CON.PCM_ITS ---
Assessment & Plan Assessment/Plan (1) Abscess of left lower extremity: (2) Cellulitis of left lower extremity: (3) Open wound of left lower leg with complication: PLAN: Patient has a draining abscess left posterior leg and a nonhealing wound left lateral leg by the ankle. He has had this abscess since late August. It was reportedly drained, and the patient felt better. He was recently admitted to TCU for rehabilitation and strengthening. His left posterior leg started hurting again and enlarged in size. A CT scan was done and was reviewed. It showed the abscess extending down to the gastrocnemius muscle with involvement. He is presently on Vancomycin, Meropenem, and Clindamycin. With the presence of a draining abscess, I recommend operative intervention with surgical preparation left posterior leg with incision and drainage and excisional debridement abscess. Will leave the wound open and begin postoperative wound care with the VAC. That should stabilize the wound and promote healing. Once the wound becomes more superficial, he would be a candidate for delayed closure with skin grafting. He states he lives in [place]. The wound care and subsequent skin grafting can be done in [place]. At the time of surgery, tissue would be sent to Pathology for analysis to rule out carcinoma and to Microbiology for culture. A positive culture may necessitate antibiotic modification. Anticipate increased metabolic demands from the infection and the upcoming surgery. Will order a Prealbumin and encourage nutritional supplementation with protein to help the healing process. After initial healing, he may need a short stay at a facility to help his strength and ambulation. Will schedule the surgery over the next 1-2 days under general anesthesia. Patient was informed of the risks and complications of the procedure including alternatives to surgery. These were discussed with the patient personally. Patient voices understanding and wishes to proceed. We discussed the current risks associated with COVID-19. While it is understood that there is a community spread of COVID-19, the risk of khushboo COVID-19 while at [facility] ([facility]) is very low; however, the risk cannot be completely mitigated because of the community spread of the disease. We discussed in detail the risk of exposure to and/or potential harm posed by the COVID-19 virus with having a surgery/procedure at this time versus the risk of delaying the surgery/procedure. It is not possible to know either the risk of delaying the surgery or procedure or chance of getting an infection with perfect accuracy, but a joint decision was made to proceed at this time with the scheduled surgery/procedure as indicated on the consent form. Patient was notified that we will need to comply with any screening or testing WC wishes to perform or that surgery may be delayed for any positive results. Procedure Criteria Procedure Type:?Elective COVID Risk Discussion: The surgeon/proceduralist and patient have discussed in detail the risk of e xposure to and/or potential harm posed by the COVID-19 virus with having a surgery/procedure at this time versus the risk of delaying the surgery/procedure.? It is not possible to know either the risk of delaying the surgery or procedure or chance of getting an infection with perfect accuracy, but a joint decision was made between the patient and the surgeon/proceduralist to proceed at this time with the scheduled surgery/procedure as indicated on the consent form. HPI Consult Data Date of Consult: 09/24/21 PCP / Referring MD: DELON DE GUZMAN Attending Care Provider: Dr. Ayaan Sutton MD HPI Narrative Reason for Consultation: Draining abscess left posterior leg. HPI Narrative: CATALINA MANCERA, is a 81 M who was sent to ER from TCU for left lower extremity abscess. Prior to that, patient was admitted in TCU for rehab from 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 There he had bedside incision and drainage. Patient was treated with vancomycin cefepime transition to ceftriaxone and discharged on cefdinir. Patient also had platelet transfusion and empiric steroid therapy on 09/03 for thrombocytopenia. Patient had acute kidney injury which improved with IV fluid normal saline, losartan on hold. On iron for chronic anemia. Patient has drainage from previous incision and drainage, denies any pain but has swelling of left leg below knee. He further stated his swelling of left lower extremity was 3 times bigger when he was admitted in [facility]. Has left inguinal lymph node swelling mildly painful. In the ED, patient had a spontaneous drainage of dirty tissue seropurulent fluid/purulent fluid from posterior aspect of left calf from previous incision site. No fever while in TCU. Blood pressure in normal range. No hypoxia or tachypnea. Labs reviewed. Lactic acid normal. Platelet count 1 59,000. No leukocytosis. Mild hypokalemia calcium 5.3. Patient is started on IV antibiotics with Vancomycin, Cefepime, and Clindamycin. A CT of the left leg was done on 09/22/21. It showed extensive cellulitis and myositis in the left lower leg with formation of multiple abscesses in all compartments of the left lower leg, the largest is 8.9 x 4.3 x 23 cm within the medial gastrocnemius muscle fascia. I was asked to evaluate this patient for surgical options for treatment. [facility] Medical History Abscess of left lower extremity Anemia Atrial fibrillation Cellulitis of left lower extremity History of stress test Open wound of left lower leg with complication Home Medications Eliquis 5 mg PO BID 09/16/21 [History Last Taken 09/24/21 06:16] ascorbic acid (vitamin C) [Vitamin C] 1,000 mg PO DAILY 09/16/21 [History Last Taken 09/24/21 08:08] ezetimibe [Zetia] 10 mg PO DAILY 09/16/21 [History Last Taken 09/24/21 06:16] pantoprazole 40 mg PO BID 09/16/21 [History Last Taken 09/24/21 06:16] polyethylene glycol 3350 [Miralax] 17 g PO DAILY 09/16/21 [History Last Taken 09/24/21 06:15] tamsulosin [Flomax] 0.4 mg PO DAILY 09/16/21 [History Last Taken 09/24/21 08:08] Ensure Compact 118 ml PO TIDCM 09/24/21 [History Last Taken 09/23/21 17:52] Eucerin 1 applic TOPICAL DAILY 09/24/21 [History Last Taken 09/24/21 06:16] acyclovir 400 mg PO BID 09/24/21 [History Last Taken 09/24/21 06:16] atorvastatin 20 mg PO QHS 09/24/21 [History Last Taken 09/23/21 21:03] melatonin 5 mg PO QHS 09/24/21 [History Last Taken 09/23/21 21:03] menthol-zinc oxide [Calmoseptine] 1 applic TOPICAL BID 09/24/21 [History Last Taken 09/24/21 06:17] midodrine 10 mg PO TIDCM 09/24/21 [History Last Taken 09/24/21 08:08] multivitamin 1 tab PO BREAKFAST 09/24/21 [History Last Taken 09/24/21 08:08] polysaccharide iron complex [Ferrex 150] 150 mg PO DAILY 09/24/21 [History Last Taken 09/24/21 08:08] sennosides-docusate sodium [Senokot-S] 1 tab-cap PO DAILY 09/24/21 [History Last Taken 09/24/21 06:16] acetaminophen [Tylenol] 650 mg PO Q6H PRN PRN #0 tab 09/29/21 [Rx Last Taken Unknown] albuterol sulfate 2.5 mg INHALATION Q4H PRN #0 ml 09/29/21 [Rx Last Taken Unknown] [id number] [Hugo (with collagen)] 1 ea PO BIDCM 09/29/21 [History Last Taken Unknown] meropenem 1 g IV Q8 09/29/21 [History Last Taken Unknown] oxycodone 5 mg PO Q4H PRN 5 Days #30 tab 09/29/21 [Rx Last Taken 09/19/21 14:19] Allergy/AdvReac Type Severity Reaction Status Date / Time aspirin AdvReac Hives Verified 09/24/21 11:09 Penicillins AdvReac PT UNSURE Verified 09/24/21 11:09 OF REACTION zolpidem [From Ambien] AdvReac Other Verified 09/24/21 11:09 Family History Mother Breast cancer Father Pancreatic cancer Surgical History History of coronary artery stent placement History of incision and drainage Social History household members: spouse Smoking Status: Former smoker alcohol intake: never substance use type: does not use ROS ROS Narrative General - Denies fever. Has fatigue, and weight loss. Eyes - Denies cataracts and glaucoma. ENT - Denies nasal congestion and sore throat. Endocrine - Denies excessive thirst and urination. Skin - Denies suspicious lesions and skin cancer. Musculoskeletal - Denies joint pain, joint stiffness, weakness of muscles and joints, back pain, and arthritis. Has left lower extremity swelling with a draining abscess. Neuro - Denies headaches. Cardiovascular - Denies chest pain, fatigue, and shortness of breath with exertion. Psych - Denies anxiety and depression. Respiratory - Denies chronic cough and shortness of breath. Gastrointestinal - Denies nausea, vomiting, diarrhea, and constipation. Hematologic - Denies abnormal bleeding. Has thrombocytopenia. Genitourinary - Denies hematuria and urinary frequency. Physical Exam Narrative General: Alert, Oriented x3, Cooperative. HEENT: PERRLA, EOMI. Neck: Supple, Nontender. No cervical adenopathy. Lungs: diminished in bilateral lung bases. Cardiovascular: Regular rate, Regular Rhythm. Abdomen: Soft, Non-Distended. Extremities: Left lower extremity swelling from calf below. Has fluctuance of about 18 cm. There is surrounding redness. There is purulent drainage from the abscess wound. Wound measures 2 cm. Tenderness to palpation. The left leg is soft. No clinical evidence of compartment syndrome. Some left inguinal adenopathy. There is another ulcer left lateral leg by the ankle. Measures 3 x 2 cm. Good granulation tissue seen. Neurological: Cranial nerves II-XII grossly intact.. Psych/Mental Status: Normal Affect, Appropriate. Lab / Micro Data Attestation: I reviewed the patient's lab results. Result Diagrams: 09/29/21 07:22 09/29/21 07:22 Labs: Laboratory Results - last 24 hr 09/24/21 12:20: WBC 8.5, RBC 3.86 L, Hgb 11.5 L, Hct 37.4 L, MCV 96.9 H, MCH 29.8, MCHC 30.7 L, RDW Std Deviation 53.0 H, RDW Coeff of Duarte 15.0 H, Plt Count 159, MPV 11.6, Immature Gran % (Auto) 0.800, Neut % (Auto) 72.0 H, Lymph % (Auto) 14.0 L, Mccone % (Auto) 11.9 H, Eos % (Auto) 0.8, Baso % (Auto) 0.5, Absolute Neuts (auto) 6.1, Absolute Lymphs (auto) 1.19, Nucleated RBC % 0 09/24/21 12:20: PT 16.5 H, INR 1.4, APTT 36.9 H 09/24/21 12:20: Sodium 135 L, Potassium 5.3 H, Chloride 102, Carbon Dioxide 29.0, Anion Gap 4 L, BUN 18, Creatinine 0.60 L, Estim Creat Clear Calc 54.56, Est GFR (MDRD) Af Amer 167, Est GFR (MDRD) Non-Af 138, BUN/Creatinine Ratio 30.0 H, Glucose 85, Calcium 8.2 L, Total Bilirubin 0.60, AST 76 H, ALT 99 H, Alkaline Phosphatase 159 H, Troponin I High Sens 16, Total Protein 5.6 L, Albumin 1.8 L, Globulin 3.8, Albumin/Globulin Ratio 0.5 L 09/24/21 12:20: Lactic Acid 1.4 09/24/21 12:20: Total Creatine Kinase 32 L 09/24/21 13:11: Phosphorus 3.3, Magnesium 2.4 09/24/21 14:00: Urine Color Yellow, Urine Clarity Clear, Urine pH 8.0, Ur Sp ecific [place] 1.010, Urine Protein Negative, Urine Glucose (UA) Normal, Urine Ketones Negative, Urine Occult Blood Negative, Urine Nitrite Negative, Urine Bilirubin Negative, Urine Urobilinogen Normal, Ur Leukocyte Esterase Negative, Urine RBC 0 SEEN, Urine WBC 0 SEEN, Ur Squamous Epith Cells 0 SEEN, Urine Bacteria 0 SEEN, Urine Mucus 0 SEEN 09/24/21 14:54: S.aureus Protein A PCR NEGATIVE, MRSA (PCR) Negative Radiology Impression Chest X-Ray 09/24/21 12:30 IMPRESSION: Increased markings at the left lung base. This is suggestive of early infiltrate. Electronically Signed: Shelton Velásquez MD at 13:35 EST , Service support , Procedure Criteria Type of Procedure Procedure Type: Elective Elective Risks - COVID COVID Risk Discussion: The surgeon/proceduralist and patient have discussed in detail the risk of exposure to and/or potential harm posed by the COVID-19 virus with having a surgery/procedure at this time versus the risk of delaying the surgery/procedure. It is not possible to know either the risk of delaying the surgery or procedure or chance of getting an infection with perfect accuracy, but a joint decision was made between the patient and the surgeon/proceduralist to proceed at this time with the scheduled surgery/procedure as indicated on the consent form. Charges/Coding Visit Charges Inpatient E&M: 34996 Init Hosp L2 (ICD-10 - L02.416, L03.116, S81.802A)
[2021-09-24] MEDS: Sodium Polystyrene Sulfonate 15 GM/60 ML UDC 30 GM PO (21:40)
[2021-09-24] MEDS: Acetaminophen 325 MG Tablet 650 MG PO (23:59)
[2021-09-25] VITALS (13 sets, daily range): BP systolic 114–147; BP diastolic 55–99; PULSE 64–79; RESP 18; TEMP 36.8–36.9; O2SAT 97–99; BMI 21.8
[2021-09-25] MEDS: Vancomycin IV 500 MG/100 ML BAG 100 MG IV ×2 (04:33→16:34)
[2021-09-25 04:56] LABS: Absolute Lymphocyte Count 1.04 X10^3/uL (0.83-4.51); Absolute Neutrophil Count 4.2 X10^3/uL (2.0-7.7); Basophil# 0.04 X10^3/uL; Basophil% 0.6 % (0-1); Eosinophil# 0.09 X10^3/uL; Eosinophils% 1.4 % (0-5); Hemoglobin 10.2 g/dL (13.0-16.5); Lymphocyte # 1.04 X10^3/ul (0.83-4.51); Lymphocyte % 16.4 % (19-41); Mean Corp Hgb Conc 30.9 g/dL (32-36); Mean Corpuscular Hgb 29.2 pg (27.0-32.0); Mean Corpuscular Volume 94.6 fL (80-94); Mean Platelet Vol. 10.5 fl (6.2-12.0); Monocyte# 0.85 X10^3/uL; Monocyte% 13.4 % (0-10); NRBC Flagged by Analyzer 0 % (0-5); Neutrophil # 4.22 X10^3/uL (2.7-7.7); Neutrophil % 66.8 % (47-70); Platelet Count 167 K/mm3 (150-450); RBC Distribution Width CV 14.6 % (11.6-14.6); RBC Distribution Width SD 50.6 fl (35.1-43.9); Red Blood Count 3.49 M/mm3 (4.6-6.2); White Blood Count 6.3 K/mm3 (4.4-11.0)
[2021-09-25 05:17] LABS: ALB/GLOB Ratio 0.5 RATIO (0.9-2.4); AST(SGOT) 54 U/L (15-37); Alanine Aminotransfer ALT/SGPT 74 U/L (16-61); Albumin, Serum 1.7 g/dL (3.2-5.0); Alkaline Phosphatase 134 U/L (45-117); Anion Gap 3 (5-15); BUN 16 mg/dL (7-18); BUN/Creat Ratio 26.1 RATIO (10-20); Calcium,Total 7.4 mg/dL (8.5-10.1); Chloride 105 mmol/L (98-107); Creatinine, Serum 0.61 mg/dL (0.70-1.30); EST Glomerular Filtration Rate 135 mL/min (>60); Est Glom Filt Rate - Afr Amer 163 mL/min (>60); Estimated Creatinine Clearance 55.24 ml/min; Globulin 3.2 g/dL (2.2-4.2); Glucose 86 mg/dL (74-106); Potassium 4.4 mmol/L (3.5-5.1); Protein, Total 4.9 g/dL (6.4-8.2); Sodium Level 136 mmol/L (136-145)
[2021-09-25] MEDS: Acetaminophen 325 MG Tablet 650 MG PO ×3 (06:22→19:22)
--- NOTE | 2021-09-25 07:34 | PCS.PANDOC ---
PANDEMIC DOCUMENTATION INITIATED: Date: 04/21/2021 Time: 190
--- NOTE | 2021-09-25 08:40 | CASEMGMT ---
Social Work Note Per music store manager questions, pt has completed HCPOA and LW, not provided copies to [facility], and pt is able to bring in copies. Jody Sales CONTROL ROOM TECHNICIAN, ROULETTE DEALER
--- NOTE | 2021-09-25 10:20 | CON.PCM.ID_ITS ---
Assessment & Plan Assessment/Plan (1) Abscess of left lower extremity: PLAN: Multiple abscess of LLE with compartment syndrome, improved after spontaneous drainage. Admitted to [facility] 09/01-09/09 with LLE abscess and pasteurella bacteremia. Will request cxs from [facility]. 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 OR planned for today with Dr. Oseguera. On empiric vanc/cefepime/clinda while cxs here are pending. Will follow, thank you, d/w Dr. Sutton yesterday HPI Consult Data Date of Consult: 09/25/21 HPI Narrative HPI Narrative: CATALINA MANCERA, is a 81 M who presented from TCU yesterday with worsening LLE pain, swelling. 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 Spends minimal time in the water, no known cuts or scrapes. Came to visit children in [place], noticed some LLE swelling 08/29, progressed over the next two days with pain, redness, chills. Taken to [facility], had abscess in L calf, drain placed emergently, given vanc/cefepime. Found to have pasteurella bacteremia. Abx narrowed to ceftriaxone. Noticed leg was swelling more prior to discharge. Sent to ECF to complete course with cefdinir until 09/16. Transferred to TCU 09/16, off abx, over past week, progressive swelling, pain became severe, 10/10. No weakness or numbness/tingling. CT done, sent to ED, had spontaneous profuse purulent drainage, and pain dramatically improved. Admitted on vanc/cefepime/clinda. Feeling ok this AM, continues to have some drainage. OR planned for some time today. Full ROS performed and neg except as noted above. [facility] Medical History Anemia Atrial fibrillation History of stress test Home Medications apixaban [Eliquis] 5 mg PO BID 09/16/21 [History Last Taken 09/24/21 06:16] ascorbic acid (vitamin C) [Vitamin C] 1,000 mg PO DAILY 09/16/21 [History Last Taken 09/24/21 08:08] ezetimibe [Zetia] 10 mg PO DAILY 09/16/21 [History Last Taken 09/24/21 06:16] oxycodone 5 mg PO Q4H PRN 09/16/21 [History Last Taken 09/19/21 14:19] pantoprazole 40 mg PO BID 09/16/21 [History Last Taken 09/24/21 06:16] polyethylene glycol 3350 [Miralax] 17 g PO DAILY 09/16/21 [History Last Taken 09/24/21 06:15] tamsulosin [Flomax] 0.4 mg PO DAILY 09/16/21 [History Last Taken 09/24/21 08:08] acetaminophen 1,000 mg PO Q6H PRN 09/24/21 [History Last Taken 09/24/21 06:15] acyclovir 400 mg PO BID 09/24/21 [History Last Taken 09/24/21 06:16] atorvastatin 20 mg PO QHS 09/24/21 [History Last Taken 09/23/21 21:03] food supplemt, lactose-reduced [Ensure Compact] 118 ml PO TIDCM 09/24/21 [History Last Taken 09/23/21 17:52] lanolin altmxbc-hm-k.pet-ceres [Eucerin] 1 applic TOPICAL DAILY 09/24/21 [History Last Taken 09/24/21 06:16] melatonin 5 mg PO QHS 09/24/21 [History Last Taken 09/23/21 21:03] menthol-zinc oxide [Calmoseptine] 1 applic TOPICAL BID 09/24/21 [History Last Taken 09/24/21 06:17] midodrine 10 mg PO TIDCM 09/24/21 [History Last Taken 09/24/21 08:08] multivitamin 1 tab PO BREAKFAST 09/24/21 [History Last Taken 09/24/21 08:08] polysaccharide iron complex [Ferrex 150] 150 mg PO DAILY 09/24/21 [History Last Taken 09/24/21 08:08] sennosides-docusate sodium [Senokot-S] 1 tab-cap PO DAILY 09/24/21 [History Last Taken 09/24/21 06:16] Allergy/AdvReac Type Severity Reaction Status Date / Time aspirin AdvReac Hives Verified 09/24/21 11:09 Penicillins AdvReac PT UNSURE Verified 09/24/21 11:09 OF REACTION zolpidem [From Ambien] AdvReac Other Verified 09/24/21 11:09 Family History Mother Breast cancer Father Pancreatic cancer Surgical History History of coronary artery stent placement History of incision and drainage Social History household members: spouse Smoking Status: Former smoker alcohol intake: never substance use type: does not use Physical Exam Const alert, oriented x3 and no apparent distress General Appearance: cooperative Exam Limitations: no limitations HEENT normocephalic and head/scalp atraumatic Eyes PERRL and EOMs intact bilaterally Neck supple and No nodes Resp normal air movement and clear to auscultation bilaterally Cardio Cardio Narrative: irreg GI soft to palpation, non-tender and non-distended Extremity General Extremity: edema Skin Skin Narrative: Reviewed photos of LLE Neuro CN's II-XII intact bilaterally Lab / Micro Data Result Diagrams: 09/25/21 04:48 09/25/21 04:48 Labs: Laboratory Results - last 24 hr 09/24/21 12:20: WBC 8.5, RBC 3.86 L, Hgb 11.5 L, Hct 37.4 L, MCV 96.9 H, MCH 29.8, MCHC 30.7 L, RDW Std Deviation 53.0 H, RDW Coeff of Duarte 15.0 H, Plt Count 159, MPV 11.6, Immature Gran % (Auto) 0.800, Neut % (Auto) 72.0 H, Lymph % (Auto) 14.0 L, [place] % (Auto) 11.9 H, Eos % (Auto) 0.8, Baso % (Auto) 0.5, Absolute Neuts (auto) 6.1, Absolute Lymphs (auto) 1.19, Nucleated RBC % 0 09/24/21 12:20: PT 16.5 H, INR 1.4, APTT 36.9 H 09/24/21 12:20: Sodium 135 L, Potassium 5.3 H, Chloride 102, Carbon Dioxide 29.0, Anion Gap 4 L, BUN 18, Creatinine 0.60 L, Estim Creat Clear Calc 54.56, Est GFR (MDRD) Af Amer 167, Est GFR (MDRD) Non-Af 138, BUN/Creatinine Ratio 30.0 H, Glucose 85, Calcium 8.2 L, Total Bilirubin 0.60, AST 76 H, ALT 99 H, Alkaline Phosphatase 159 H, Troponin I High Sens 16, Total Protein 5.6 L, Albumin 1.8 L, Globulin 3.8, Albumin/Globulin Ratio 0.5 L 09/24/21 12:20: Lactic Acid 1.4 09/24/21 12:20: Total Creatine Kinase 32 L 09/24/21 13:11: Phosphorus 3.3, Magnesium 2.4 09/24/21 14:00: Urine Color Yellow, Urine Clarity Clear, Urine pH 8.0, Ur Specific [place] 1.010, Urine Protein Negative, Urine Glucose (UA) Normal, Urine Ketones Negative, Urine Occult Blood Negative, Urine Nitrite Negative, Urine Bilirubin Negative, Urine Urobilinogen Normal, Ur Leukocyte Esterase Negative, Urine RBC 0 SEEN, Urine WBC 0 SEEN, Ur Squamous Epith Cells 0 SEEN, Urine Bacteria 0 SEEN, Urine Mucus 0 SEEN 09/24/21 14:54: S.aureus Protein A PCR NEGATIVE, MRSA (PCR) Negative 09/25/21 04:48: WBC 6.3, RBC 3.49 L, Hgb 10.2 L, Hct 33.0 L, MCV 94.6 H, MCH 29.2, MCHC 30.9 L, RDW Std Deviation 50.6 H, RDW Coeff of Duarte 14.6, Plt Count 167, MPV 10.5, Immature Gran % (Auto) 1.400 H, Neut % (Auto) 66.8, Lymph % (Auto) 16.4 L, [place] % (Auto) 13.4 H, Eos % (Auto) 1.4, Baso % (Auto) 0.6, Absolute Neuts (auto) 4.2, Absolute Lymphs (auto) 1.04, Nucleated RBC % 0 09/25/21 04:48: Sodium 136, Potassium 4.4, Chloride 105, Carbon Dioxide 28.0, Anion Gap 3 L, BUN 16, Creatinine 0.61 L, Estim Creat Clear Calc 55.24, Est GFR (MDRD) Af Amer 163, Est GFR (MDRD) Non-Af 135, BUN/Creatinine Ratio 26.1 H, Glucose 86, Calcium 7.4 L, Total Bilirubin 0.50, AST 54 H, ALT 74 H, Alkaline Phosphatase 134 H, Total Protein 4.9 L, Albumin 1.7 L, Globulin 3.2, Albumin/Globulin Ratio 0.5 L Radiology Impression Chest X-Ray 09/24/21 12:30 IMPRESSION: Increased markings at the left lung base. This is suggestive of early infiltrate. Electronically Signed: Shelton Velásquez MD at 13:35 EST , Service support ,
--- NOTE | 2021-09-25 11:12 | WOUNDNOTE ---
Pt states he is going to surgery around 1700 tonight. son present at bedside. there is some breakthrough drainage noted on the old dressing. changed dressing at this time. there is more drainage noted from the left calf. still very tender and edematous. clarified with patient that the only area that was drained at [facility] was the left lateral lower leg. there were no wounds to the calf. on admission to TCU, there were also no wounds to the left calf only the small wound to the left lateral lower leg.
[2021-09-25 16:22] LABS: M R Staph aureus DNA By PCR Negative (Negative); Probe Check PASS; Specimen Processing Control PASS
--- NOTE | 2021-09-25 17:19 | CASEMGMT ---
Social Work Note SW updated that pt had questions regarding LW HCPOA. SW will meet with pt to discuss questions regarding Advanced Directive as time allows. SW reviewed chart. Pt is from [facility] and plans on returning at discharge. SW placed a call to Shandra with TCU, TCU can accept pt back Wednesday. SW to continue to follow. Plan: Return to TCU Wednesday Jody TOBAR, CODING QUALITY COORDINATOR
--- NOTE | 2021-09-25 17:38 | PN.HOSP_ITS ---
Subjective Subjective Doing well, still having some left lower extremity pain unfortunately surgery was canceled for today and will be attempted tomorrow at 1 PM Objective Data Objective Data Vital Signs: Vital Signs Temp Pulse Resp BP Pulse Ox 98.5 F 76 18 117/99 H 99 09/25/21 11:11 09/25/21 15:35 09/25/21 11:11 09/25/21 11:11 09/25/21 15:37 Oxygen Delivery Method Room Air Weight: 143 lb 11.862 oz Body Mass Index (BMI) 21.8 Intake & Output: Intake and Output for Last 24 Hours 09/24/21 09/25/21 09/26/21 03:59 03:59 03:59 Intake Total 855.33 / 855.33 412 / 412 Output Total 500 / 500 Balance 355.33 / 355.33 412 / 412 Lab / Micro Data Result Diagrams: 09/25/21 04:48 09/25/21 04:48 Labs: Laboratory Results - last 24 hr 09/25/21 04:48: WBC 6.3, RBC 3.49 L, Hgb 10.2 L, Hct 33.0 L, MCV 94.6 H, MCH 29.2, MCHC 30.9 L, RDW Std Deviation 50.6 H, RDW Coeff of Duarte 14.6, Plt Count 167, MPV 10.5, Immature Gran % (Auto) 1.400 H, Neut % (Auto) 66.8, Lymph % (Auto) 16.4 L, [place] % (Auto) 13.4 H, Eos % (Auto) 1.4, Baso % (Auto) 0.6, Absolute Neuts (auto) 4.2, Absolute Lymphs (auto) 1.04, Nucleated RBC % 0 09/25/21 04:48: Sodium 136, Potassium 4.4, Chloride 105, Carbon Dioxide 28.0, Anion Gap 3 L, BUN 16, Creatinine 0.61 L, Estim Creat Clear Calc 55.24, Est GFR (MDRD) Af Amer 163, Est GFR (MDRD) Non-Af 135, BUN/Creatinine Ratio 26.1 H, Glucose 86, Calcium 7.4 L, Total Bilirubin 0.50, AST 54 H, ALT 74 H, Alkaline Phosphatase 134 H, Total Protein 4.9 L, Albumin 1.7 L, Globulin 3.2, Albumin/Paula bulin Ratio 0.5 L 09/25/21 10:55: MRSA (PCR) Negative Micro: Microbiology 09/24/21 14:54 Wound Abcess - Leg, Left Gram Stain - Final 09/24/21 14:54 Wound Abcess - Leg, Left Wound Culture - Preliminary No growth-Final to follow 09/24/21 14:00 Urine, Clean Catch Urine Culture - Preliminary Gram negative leonard Physical Exam Const alert, oriented x3 and no apparent distress General Appearance: cooperative HEENT normocephalic and moist oral mucous membranes Eyes PERRL, EOMs intact bilaterally and conjunctivae normal Neck supple and no JVD Resp normal respiratory effort, no retractions, no use of accessory muscles and clear to auscultation bilaterally Auscultation: Negative for crackles, rales, rhonchi or wheezes Cardio regular rate, regular rhythm, S1 normal heart sound, S2 normal heart sound and no murmurs GI soft to palpation, non-tender and non-distended; Negative for hepatosplenomegaly Extremity no clubbing, cyanosis or edema Skin Skin Narrative: Left lower extremity is mildly tender, wound is currently dressed and wrapped however there is some induration extending up to the knee Neuro no focal motor deficits and no sensory deficits noted Psych affect normal Appearance: appropriate Assessment & Plan Assessment/Plan (1) Cellulitis of left lower extremity: (2) Abscess of left lower extremity: PLAN: 1. Multiple abscesses and possible myositis of his left lower extremity ? Continue with broad-spectrum antibiotic including vancomycin, cefepime, clin damycin ? Appreciate ID assistance ? Plan for operative I&D and washout 09/26/2021 ? Cultures are pending but will also attempt to get cultures from [place] ? Continue with pain management 2. CAD status post stent/chronic A. fib/HLD ? Continue to hold his Eliquis ? Blood pressures are current as stable ? Continue with Zetia ? 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 He did receive a platelet transfusion have [place] his platelets are currently normal therefore we will monitor ? Continue with his iron supplement hemoglobin is stable we will continue to monitor 4. GERD ? Stable ? Continue with PPI DVT: SCDs Charges/Coding Visit Charges Inpatient E&M: 13663 Subs Hosp L2
[2021-09-25] MEDS: Juven (unflavored) Packet 1 PACKET PO (17:48)
[2021-09-25] MEDS: Atorvastatin Calcium 20 MG Tablet PO (21:01)
[2021-09-25] MEDS: Pantoprazole Sodium 40 MG Tablet PO (21:02)
[2021-09-26] VITALS (23 sets, daily range): BP systolic 103–142; BP diastolic 54–79; PULSE 61–94; RESP 16–18; TEMP 36.1–37.2; O2SAT 87–100; BMI 21.9
[2021-09-26] MEDS: Acetaminophen 325 MG Tablet 650 MG PO ×2 (01:26→21:08)
[2021-09-26] MEDS: Vancomycin IV 500 MG/100 ML BAG 100 MG IV (03:26)
[2021-09-26 03:32] LABS: Absolute Lymphocyte Count 1.22 X10^3/uL (0.83-4.51); Absolute Neutrophil Count 3.4 X10^3/uL (2.0-7.7); Basophil# 0.06 X10^3/uL; Eosinophil# 0.11 X10^3/uL; Eosinophils% 1.9 % (0-5); Hematocrit 30.5 % (40-54); Hemoglobin 9.4 g/dL (13.0-16.5); Lymphocyte # 1.22 X10^3/ul (0.83-4.51); Lymphocyte % 21.3 % (19-41); Mean Corp Hgb Conc 30.8 g/dL (32-36); Mean Corpuscular Hgb 28.9 pg (27.0-32.0); Mean Corpuscular Volume 93.8 fL (80-94); Mean Platelet Vol. 10.4 fl (6.2-12.0); Monocyte# 0.84 X10^3/uL; Monocyte% 14.7 % (0-10); NRBC Flagged by Analyzer 0 % (0-5); Neutrophil # 3.41 X10^3/uL (2.7-7.7); Neutrophil % 59.7 % (47-70); Platelet Count 204 K/mm3 (150-450); RBC Distribution Width CV 14.6 % (11.6-14.6); RBC Distribution Width SD 50.2 fl (35.1-43.9); Red Blood Count 3.25 M/mm3 (4.6-6.2); White Blood Count 5.7 K/mm3 (4.4-11.0)
[2021-09-26 03:58] LABS: ALB/GLOB Ratio 0.5 RATIO (0.9-2.4); AST(SGOT) 41 U/L (15-37); Alanine Aminotransfer ALT/SGPT 56 U/L (16-61); Albumin, Serum 1.5 g/dL (3.2-5.0); Alkaline Phosphatase 128 U/L (45-117); Anion Gap 4 (5-15); BUN 18 mg/dL (7-18); BUN/Creat Ratio 31.4 RATIO (10-20); Calcium,Total 7.1 mg/dL (8.5-10.1); Chloride 105 mmol/L (98-107); Creatinine, Serum 0.57 mg/dL (0.70-1.30); EST Glomerular Filtration Rate 146 mL/min (>60); Est Glom Filt Rate - Afr Amer 176 mL/min (>60); Estimated Creatinine Clearance 55.24 ml/min; Glucose 104 mg/dL (74-106); Potassium 3.9 mmol/L (3.5-5.1); Protein, Total 4.5 g/dL (6.4-8.2); Sodium Level 135 mmol/L (136-145)
--- NOTE | 2021-09-26 04:17 | PCM.RX.CS ---
Consult Pharmacy has been consulted to manage selected antiobiotic: Vancomycin Type of Consult: Follow-up Suspected Infection: Skin/Soft tissue Prior Doses of Antibiotics Received/Current Regimen: Medications Vancomycin HCl 1,250 mg/ (Sodium Chloride) 275 mls @ 167 mls/hr IV Q12H SENTHIL Vancomycin HCl () 500 mg in 100 mls @ 100 mls/hr IV Q12H SENTHIL Stop: 09/26/21 05:00 Last Admin: 09/26/21 03:26 Dose: 100 mls/hr Labs: Sodium 135 mmol/L (136-145) L 09/26/21 03:23 Potassium 3.9 mmol/L (3.5-5.1) 09/26/21 03:23 Chloride 105 mmol/L (98-107) 09/26/21 03:23 Carbon Dioxide 26.0 mmol/L (21.0-32.0) 09/26/21 03:23 Anion Gap 4 (5-15) L 09/26/21 03:23 BUN 18 mg/dL (7-18) 09/26/21 03:23 Creatinine 0.57 mg/dL (0.70-1.30) L 09/26/21 03:23 Est GFR (MDRD) Af Amer 176 mL/min (>60) 09/26/21 03:23 Est GFR (MDRD) Non-Af 146 mL/min (>60) 09/26/21 03:23 BUN/Creatinine Ratio 31.4 RATIO (10-20) H 09/26/21 03:23 Glucose 104 mg/dL (74-106) 09/26/21 03:23 Vancomycin Trough 7.0 ug/mL (5.0-15.0) 09/26/21 03:23 Microbiology: Microbiology 09/24/21 14:54 Wound Abcess - Leg, Left Gram Stain - Final 09/24/21 14:54 Wound Abcess - Leg, Left Wound Culture - Preliminary No growth-Final to follow 09/24/21 14:00 Urine, Clean Catch Urine Culture - Preliminary Gram negative leonard Weight used for dosin.2 kg Estimated Creatinine Clearance: 55 Goal Trough: 15-20 mcg/mL Pharmacy Plan for Drug Dosing: Vancomycin trough level was low at 7.0, below the target range of 15-20. Will increase dose to 1250mg q12h, and re-draw a trough prior to 4th dose of the new regimen. Pharmacy Service will continue to monitor and adjust dosing as required. Follow-Up Labs: Trough Vancomycin Labs to be done on [date and time ordered]: 09/28/21 @0300
[2021-09-26] MEDS: 0.9% Saline Lock 10 ML Syringe IV ×2 (07:39→21:09)
[2021-09-26] MEDS: Tamsulosin HCl 0.4 MG Capsule PO (08:07)
[2021-09-26] MEDS: Pantoprazole Sodium 40 MG Tablet PO ×2 (08:07→21:07)
[2021-09-26] MEDS: Juven (unflavored) Packet 1 PACKET PO ×2 (08:07→21:09)
--- NOTE | 2021-09-26 09:43 | CASEMGMT ---
Social Work Note Pt's surgery was cancelled yesterday, rescheduled for today. ADA spoke with Shandra with TCU. Plan is for pt to return to TCU Wednesday if pt is medically cleared. Shandra states pt will also need COVID test on day of discharge. Green sheet on chart. Plan: TCU Wednesday Jody Sales WORM PACKER, SECURITY OPERATIONS ENGINEER
--- NOTE | 2021-09-26 10:47 | PN.HOSP_ITS ---
Subjective Subjective Doing well, states that the pain in his left lower extremity is about a 4 out of 10. He thinks the swelling has gone down. Plan for operative washout and I&D today Objective Data Objective Data Vital Signs: Vital Signs Temp Pulse Resp BP Pulse Ox 97.8 F 61 18 125/69 H 100 09/26/21 08:00 09/26/21 09:16 09/26/21 08:00 09/26/21 08:00 09/26/21 08:00 Oxygen Delivery Method Room Air Weight: 143 lb 15.39 oz Body Mass Index (BMI) 21.8 Intake & Output: Intake and Output for Last 24 Hours 09/25/21 09/26/21 09/27/21 03:59 03:59 03:59 Intake Total 855.33 / 855.33 1218 / 1218 150 / 150 Output Total 500 / 500 550 / 550 450 / 450 Balance 355.33 / 355.33 668 / 668 -300 / -300 Lab / Micro Data Result Diagrams: 09/26/21 03:23 09/26/21 03:23 Labs: Laboratory Results - last 24 hr 09/25/21 10:55: MRSA (PCR) Negative 09/26/21 03:23: WBC 5.7, RBC 3.25 L, Hgb 9.4 L, Hct 30.5 L, MCV 93.8, MCH 28.9, MCHC 30.8 L, RDW Std Deviation 50.2 H, RDW Coeff of Duarte 14.6, Plt Count 204, MPV 10.4, Immature Gran % (Auto) 1.400 H, Neut % (Auto) 59.7, Lymph % (Auto) 21.3, [place] % (Auto) 14.7 H, Eos % (Auto) 1.9, Baso % (Auto) 1.0, Absolute Neuts (auto) 3.4, Absolute Lymphs (auto) 1.22, Nucleated RBC % 0 09/26/21 03:23: Sodium 135 L, Potassium 3.9, Chloride 105, Carbon Dioxide 26.0, Anion Gap 4 L, BUN 18, Creatinine 0.57 L, Estim Creat Clear Calc 55.24, Est GFR (MDRD) Af Amer 176, Est GFR (MDRD) Non-Af 146, BUN/Creatinine Ratio 31.4 H, Glucose 104, Calcium 7.1 L, Total Bilirubin 0.40, AST 41 H, ALT 56, Alkaline Phosphatase 128 H, Total Protein 4.5 L, Albumin 1.5 L, Globulin 3.0, Albumin/Globulin Ratio 0.5 L 09/26/21 03:23: Vancomycin Trough 7.0 Micro: Microbiology 09/24/21 13:03 Blood Culture (Wb) - Left Hand Blood Culture - Preliminary 09/24/21 14:00 Urine, Clean Catch Urine Culture - Preliminary Escherichia coli 09/24/21 14:54 Wound Abcess - Leg, Left Gram Stain - Final 09/24/21 14:54 Wound Abcess - Leg, Left Wound Culture - Preliminary No growth-Final to follow Physical Exam Narrative Const alert, oriented x3 and no apparent distress General Appearance: cooperative HEENT normocephalic and moist oral mucous membranes Eyes PERRL, EOMs intact bilaterally and conjunctivae normal Neck supple and no JVD Resp normal respiratory effort, no retractions, no use of accessory muscles and clear to auscultation bilaterally Auscultation: Negative for crackles, rales, rhonchi or wheezes Cardio regular rate, regular rhythm, S1 normal heart sound, S2 normal heart sound and no murmurs GI soft to palpation, non-tender and non-distended; Negative for hepatosplenomegaly Extremity no clubbing, cyanosis or edema Skin Skin Narrative: Left lower extremity is mildly tender, wound is currently dressed and wrapped however there is some induration extending up to the knee Neuro no focal motor deficits and no sensory deficits noted Psych affect normal Appearance: appropriate Assessment & Plan Assessment/Plan (1) Cellulitis of left lower extremity: (2) Abscess of left lower extremity: PLAN: 1. Multiple abscesses and possible myositis of his left lower extremity ? Continue with broad-spectrum antibiotic including vancomycin, cefepime, clindamycin ? Appreciate ID assistance ? Plan for operative I&D and washout 09/26/2021 ? Cultures are pending but will also attempt to get cultures from [place] ? Urine culture with a fairly resistant E. coli however it is sensitive to Zosyn but resistant to cefepime therefore we will have to adjust antibiotics. He states that he is allergic to penicillin but is not sure what the reaction is therefore we will try him on Zosyn while an inpatient and see if he has a reaction ? Blood culture with gram-positive cocci in clusters in one of the aerobic bottles. We will repeat blood cultures today ? Continue with pain management 2. CAD status post stent/chronic A. fib/HLD ? Continue to hold his Eliquis ? Blood pressures are current as stable ? Continue with Zetia ? 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 He did receive a platelet transfusion have [place] his platelets are currently normal therefore we will monitor ? Continue with his iron supplement hemoglobin is stable we will continue to monitor 4. GERD ? Stable ? Continue with PPI DVT: SCDs Charges/Coding Visit Charges Inpatient E&M: 13512 Subs Hosp L2
--- NOTE | 2021-09-26 12:25 | PCM.PN.ID ---
Physical Exam Narrative OR today, no fever, no n/v/d. Some LLE pain. Const alert and no apparent distress General Appearance: cooperative Resp normal air movement and clear to auscultation bilaterally Cardio regular rate and regular rhythm GI soft to palpation, non-tender and non-distended Skin Skin Narrative: LLE wrapped ID ID: Route of nutrition/ use of supplements: [] Nutritional Intake: [] IV Site: [] Branch Catheter: [] Assessment & Plan Assessment/Plan (1) Abscess of left lower extremity: PLAN: Multiple abscess of LLE with suspected compartment syndrome, improved after spontaneous drainage. Admitted to [facility] 09/01-09/09 with LLE abscess and pasteurella bacteremia. Will request cxs from [facility]. 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 OR planned for today with Dr. Oseguera. On empiric vanc/cefepime/clinda while cxs here are pending. Ucx with esbl, will change vanc/rose marie/clinda. If no fasciitis/gas gangrene seen in OR, would stop clinda. Will follow, d/w nursing
--- NOTE | 2021-09-26 13:30 | ABS_PTH ---
PATIENT: CATALINA MANCERA LOC: [facility] U#:[id number] AGE/SX: 81/M [place] [facility] [place]: Dr. Kaitlin Cherry MD : [id number] BED: 1 DIS: 09/29/2021 SPEC #: [id number] RECD: 09/29/21 07:53 STATUS: ANGEL REQ #: [id number] KATHERINE: 09/26/21 13:[address]: Devin Oseguera DEPT: SURGICAL PATHOLOGY RECD BY: Ani Mark ENTERED: 09/29/21 09:41 SP TYPE: Abscess OTHR DR: MD Dr. Devin Centeno MD Dr. Prakash Chand, MD Dr. Robert Leininger, MD Tissues: Leg, NOS Procedures: Surgery Specimen Level IV Comments: @ Ordering doctor for SUIII edited from to @ by RGOOD at 09/29/21 1438 @ Submitting doctor edited from to @ by RGOOD at 09/29/21 1438 HEADER OPERATION: Surgical preparation left posterior leg with incision and drain PRE-OP DIAGNOSIS: Abscess of left lower extremity, multiple abscess of LLE TISSUE SUBMITTED: Left posterior leg abscess debrided tissue MICROSCOPIC DIAGNOSIS Skin and tissue of left posterior leg, excision: Ulceration with acute and chronic inflammation and fibrinopurulent material. AM:erick 09/30/2021 MICROSCOPIC DESCRIPTION Slides are reviewed. GROSS DESCRIPTION Received in fixative is one container labeled with the patient's name and designated left posterior leg abscess tissue. The specimen consists of two irregular fragments of dark to light tirado soft tissue ranging in size from 1 to 14 cm. Cutaneous ulcer is identified in the largest fragment measuring 4 x 2 cm. This ulcer extends to a depth of 1 cm. Egg Producer sections are submitted in two cassettes. / AM:erick 09/29/2021 TC:2 CPT: 09983
[2021-09-26] MEDS: Lactated Ringers 1,000 ML 30 ML IV (13:45)
--- NOTE | 2021-09-26 15:19 | OP.PCM_ITS ---
Problems Associated Problem List Diagnoses (1) Cellulitis of left lower extremity: (2) Abscess of left lower extremity: (3) Open wound of left lower leg with complication: Report of Operation Date of Procedure: 09/26/21 Pre-Operative Diagnosis: 1. Draining abscess left posterior leg. 2. Cellulitis left posterior leg. 3. Open wound left posterior leg. Post-Operative Diagnosis: Same. Surgery/Procedure Performed:: Surgical preparation left posterior leg with incision and drainage and excisional debridement abscess (153 cm2). Description of Surgical Findings:: CATALINA MANCERA, is a 81 M who was sent to ER from TCU for left lower extremity abscess. 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 There he had bedside incision and drainage. Patient was treated with vancomycin cefepime transition to ceftriaxone and discharged on cefdinir. Patient also had platelet transfusion and empiric steroid therapy on 09/03 for thrombocytopenia. Patient had acute kidney injury which improved with IV fluid normal saline, losartan on hold. On iron for chronic anemia. Patient has drainage from previous incision and drainage, denies any pain but has swelling of left leg below knee. He further stated his swelling of left lower extremity was 3 times bigger when he was admitted in [facility]. Has left inguinal lymph node swelling mildly painful. In the ED, patient had a spontaneous drainage of dirty tissue seropurulent fluid/purulent fluid from posterior aspect of left calf from previous incision site. No fever while in TCU. Blood pressure in normal range. No hypoxia or tachypnea. Labs reviewed. Lactic acid normal. Platelet count 1 59,000. No leukocytosis. Mild hypokalemia calcium 5.3. Patient is started on IV antibiotics with Vancomycin, Cefepime, and Clindamycin. A CT lf the left leg was done on 09/22/21. It showed extensive cellulitis and myositis in the left lower leg with formation of multiple abscesses in all compartments of the left lower leg, the largest is 8.9 x 4.3 x 23 cm within the medial gastrocnemius muscle fascia. I was asked to evaluate this patient for surgical options for treatment. Patient was informed of the risks and complications of the procedure including alternatives to surgery. These were discussed with the patient personally. Patient voices understanding and wishes to proceed. Size of wound left posterior leg - 22 x 6.5 cm. Size of wound inferior to larger wound on the left lateral ankle - 4 x 2.5 cm. Surgeon: Devin Oseguera manager quality: None Type of Anesthesia: General Specimen's removed: Draining abscess left posterior leg to Pathology and Microbiology. Drains: None. Estimated Blood Loss (mL): 150. Description of Procedure: Patient was taken to OR in supine position and was placed under general anesthesia. He was then placed in the prone position. The left leg was prepped and draped in the usual fashion. SCDs were not placed because of the operative site being the left leg. He is being treated with Lovenox for DVT prophylaxis, and he also takes Eliquis. Perioperative antibiotics were given intravenously. There was fluctuance and drainage in the central aspect of his left posterior leg. I made a longitudinal elliptical incision over his left posterior leg down into the subcutaneous tissue. A lot of pus was seen. A lot of fat necrosis was seen. Dissecting down to the gastrocnemius muscle and there extensive inflammatory exudate involving the fascia. The underlying muscle had small amount of bruising proximally which was excised and debrided. I did blunt dissection deep to the muscle and no pus was seen. Some inflammatory exudate was noted and irrigated out with saline. There is a smaller ulcer on the left lateral leg by the ankle that was excised and debrided as well to aid in wound care. Some of the soft tissue was sent to Pathology for analysis to rule out carcinoma and to Microbiology for culture. A positive culture may necessitate antibiotic modification. Also an MRSA wound DNA by PCR was done. There was some old blood present from a possible old hematoma which could exacerbate the infection since fluid in the body that is not moving can increase risk for infection. The size of the defect left posterior leg is 22 x 6.5 x 2 cm. The size of the ulcer left lateral leg by the ankle is 4 x 2.5 x 1 cm. Hemostasis was obtained with electrocautery. The wounds were irrigated with saline. I then dressed the wounds with Mepitel nonadherent dressing followed by Kerlix gauze and Betadine. This is followed by another dry Kerlix gauze and followed by a compression robert wrap. Patient tolerated the procedure well and was sent to PACU in satisfactory condition. Patient will be sent upstairs for continued postop care. When the postop oozing is stable, will apply the VAC. He will keep his left leg elevated during the initial postoperative period. Continue present antibiotics (Vancomycin, Meropenem, and Clindamycin). A positive operative culture may necessitate antibiotic modification. Will proceed with postoperative wound care with the VAC. Grafts/Implants Used: None. Complications None. Admit VTE Documentation VTE Present on Admission: No VTE Mechan Device Prophylaxis: SCD's VTE Pharm Prophylaxis ordered?: No Addendum Addendum: Surgery Charges CPT - 45168 ICD-10 - S81.802A, L02.416, L03.116 79007 S81.802A, L02.416, L03.116 78767 L02.416, L03.116, S81.802A
[2021-09-26] MEDS: Lactated Ringers 1,000 ML 100 ML IV (16:15)
[2021-09-26 17:41] LABS: M R Staph aureus DNA By PCR Negative (Negative); Probe Check PASS; Specimen Processing Control PASS; Staph aureus DNA By PCR NEGATIVE (Negative)
[2021-09-26] MEDS: Iron Polysaccharide Complex 150 MG CAPSULE PO (21:06)
[2021-09-26] MEDS: Atorvastatin Calcium 20 MG Tablet PO (21:07)
[2021-09-26] MEDS: Senna/Docusate Sodium 1 Tablet 2 TABLET PO (21:07)
[2021-09-26] MEDS: Ezetimibe 10 MG Tablet PO (21:07)
[2021-09-26] MEDS: oxyCODONE 5 MG Tablet PO (21:08)
[2021-09-27] VITALS (11 sets, daily range): BP systolic 97–115; BP diastolic 46–66; PULSE 69–87; RESP 16–18; TEMP 36.6–36.8; O2SAT 94–98
[2021-09-27] MEDS: Acetaminophen 325 MG Tablet 650 MG PO ×2 (03:56→12:25)
[2021-09-27] MEDS: oxyCODONE 5 MG Tablet PO ×2 (04:00→21:19)
[2021-09-27] MEDS: 0.9% Saline Lock 10 ML Syringe IV ×2 (04:05→21:09)
[2021-09-27 05:58] LABS: Absolute Lymphocyte Count 1.46 X10^3/uL (0.83-4.51); Absolute Neutrophil Count 9.1 X10^3/uL (2.0-7.7); Basophil# 0.02 X10^3/uL; Basophil% 0.2 % (0-1); Hematocrit 29.3 % (40-54); Hemoglobin 8.8 g/dL (13.0-16.5); Lymphocyte # 1.46 X10^3/ul (0.83-4.51); Lymphocyte % 12.6 % (19-41); Mean Corpuscular Hgb 28.6 pg (27.0-32.0); Mean Corpuscular Volume 95.1 fL (80-94); Mean Platelet Vol. 10.8 fl (6.2-12.0); Monocyte% 7.8 % (0-10); NRBC Flagged by Analyzer 0 % (0-5); Neutrophil # 9.09 X10^3/uL (2.7-7.7); Neutrophil % 78.7 % (47-70); Platelet Count 279 K/mm3 (150-450); RBC Distribution Width CV 14.6 % (11.6-14.6); RBC Distribution Width SD 49.6 fl (35.1-43.9); Red Blood Count 3.08 M/mm3 (4.6-6.2); White Blood Count 11.6 K/mm3 (4.4-11.0)
[2021-09-27 06:29] LABS: ALB/GLOB Ratio 0.5 RATIO (0.9-2.4); AST(SGOT) 26 U/L (15-37); Alanine Aminotransfer ALT/SGPT 47 U/L (16-61); Albumin, Serum 1.6 g/dL (3.2-5.0); Alkaline Phosphatase 107 U/L (45-117); Anion Gap 6 (5-15); BUN 22 mg/dL (7-18); BUN/Creat Ratio 32.5 RATIO (10-20); Calcium,Total 7.2 mg/dL (8.5-10.1); Chloride 103 mmol/L (98-107); Creatinine, Serum 0.68 mg/dL (0.70-1.30); EST Glomerular Filtration Rate 120 mL/min (>60); Est Glom Filt Rate - Afr Amer 145 mL/min (>60); Estimated Creatinine Clearance 55.32 ml/min; Globulin 3.1 g/dL (2.2-4.2); Glucose 150 mg/dL (74-106); Potassium 4.3 mmol/L (3.5-5.1); Protein, Total 4.7 g/dL (6.4-8.2); Sodium Level 135 mmol/L (136-145)
[2021-09-27] MEDS: Tamsulosin HCl 0.4 MG Capsule PO (08:02)
[2021-09-27] MEDS: Juven (unflavored) Packet 1 PACKET PO ×2 (08:02→16:21)
[2021-09-27] MEDS: Ezetimibe 10 MG Tablet PO (09:21)
[2021-09-27] MEDS: Pantoprazole Sodium 40 MG Tablet PO ×2 (09:22→21:19)
[2021-09-27] MEDS: Senna/Docusate Sodium 1 Tablet 2 TABLET PO ×2 (09:22→21:19)
[2021-09-27] MEDS: Iron Polysaccharide Complex 150 MG CAPSULE PO (09:22)
--- NOTE | 2021-09-27 10:00 | PN.HOSP_ITS ---
Subjective Subjective Doing well, no issues overnight. He did had surgery yesterday and is not having significant pain from this. Plan appears to be for a wound VAC unsure if we will be able to get that delivered on the weekend, and we are still waiting for culture data and he will likely need IV antibiotics. Objective Data Objective Data Vital Signs: Vital Signs Temp Pulse Resp BP Pulse Ox 97.8 F 81 16 104/59 L 97 09/27/21 07:48 09/27/21 07:48 09/27/21 07:48 09/27/21 07:48 09/27/21 07:48 Oxygen Flow Rate (L/min) 2 Oxygen Delivery Method Room Air Weight: 143 lb 4.807 oz Body Mass Index (BMI) 21.9 Intake & Output: Intake and Output for Last 24 Hours 09/26/21 09/27/21 09/28/21 03:59 03:59 03:59 Intake Total 1218 / 1218 1982 / 1982 381 / 381 Output Total 550 / 550 1100 / 1100 100 / 100 Balance 668 / 668 883 / 883 281 / 281 Lab / Micro Data Result Diagrams: 09/27/21 05:12 09/27/21 05:12 Labs: Laboratory Results - last 24 hr 09/26/21 : S.aureus Protein A PCR NEGATIVE, MRSA (PCR) Negative 09/27/21 05:12: WBC 11.6 H, RBC 3.08 L, Hgb 8.8 L, Hct 29.3 L, MCV 95.1 H, MCH 28.6, MCHC 30.0 L, RDW Std Deviation 49.6 H, RDW Coeff of Duarte 14.6, Plt Count 279, MPV 10.8, Immature Gran % (Auto) 0.700, Neut % (Auto) 78.7 H, Lymph % (Auto) 12.6 L, [place] % (Auto) 7.8, Eos % (Auto) 0.0, Baso % (Auto) 0.2, Absolute Neuts (auto) 9.1 H, Absolute Lymphs (auto) 1.46, Nucleated RBC % 0 09/27/21 05:12: Sodium 135 L, Potassium 4.3, Chloride 103, Carbon Dioxide 26.0, Anion Gap 6, BUN 22 H, Creatinine 0.68 L, Estim Creat Clear Calc 55.32, Est GFR (MDRD) Af Amer 145, Est GFR (MDRD) Non-Af 120, BUN/Creatinine Ratio 32.5 H, Glucose 150 H, Calcium 7.2 L, Total Bilirubin 0.40, AST 26, ALT 47, Alkaline Phosphatase 107, Total Protein 4.7 L, Albumin 1.6 L, Globulin 3.1, Albumin/Globulin Ratio 0.5 L Micro: Microbiology 09/24/21 14:54 Wound Abcess - Leg, Left Gram Stain - Final 09/24/21 14:54 Wound Abcess - Leg, Left Wound Culture - Final No growth aerobically. 09/24/21 14:00 Urine, Clean Catch Urine Culture - Final Escherichia coli 09/24/21 13:03 Blood Culture (Wb) - Left Hand Bacteria Detection (PCR) - Final 09/24/21 13:03 Blood Culture (Wb) - Left Hand Blood Culture - Preliminary 09/24/21 12:20 Blood Culture (Wb) - Left Forearm Blood Culture - Preliminary No growth in 48 hours. Physical Exam Narrative Const alert, oriented x3 and no apparent distress General Appearance: cooperative HEENT normocephalic and moist oral mucous membranes Eyes PERRL, EOMs intact bilaterally and conjunctivae normal Neck supple and no JVD Resp normal respiratory effort, no retractions, no use of accessory muscles and clear to auscultation bilaterally Auscultation: Negative for crackles, rales, rhonchi or wheezes Cardio regular rate, regular rhythm, S1 normal heart sound, S2 normal heart sound and n o murmurs GI soft to palpation, non-tender and non-distended; Negative for hepatosplenomegaly Extremity no clubbing, cyanosis or edema Skin Skin Narrative: Left lower extremity is mildly tender, wound is currently dressed and wrapped however there is some induration extending up to the knee Neuro no focal motor deficits and no sensory deficits noted Psych affect normal Appearance: appropriate Assessment & Plan Assessment/Plan (1) Cellulitis of left lower extremity: (2) Abscess of left lower extremity: PLAN: 1. Multiple abscesses and possible myositis of his left lower extremity ? Continue with broad-spectrum antibiotic including vancomycin, meropenem, clindamycin. E. coli UTI is ESBL positive ? Appreciate ID assistance ? Plan for operative I&D and washout 09/26/2021 ? Cultures are pending but will also attempt to get cultures from [place] ? Blood culture with gram-positive cocci in clusters in one of the aerobic bottles. We will repeat blood cultures today ? Continue with pain management 2. CAD status post stent/chronic A. fib/HLD ? Continue to hold his Eliquis ? Blood pressures are current as stable ? Continue with Zetia ? 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 He did receive a platelet transfusion have [place] his platelets are currently normal therefore we will monitor ? Continue with his iron supplement hemoglobin is stable we will continue to monitor 4. GERD ? Stable ? Continue with PPI DVT: SCDs Charges/Coding Visit Charges Inpatient E&M: 42281 Subs Hosp L2
--- NOTE | 2021-09-27 14:23 | CM.ED ---
ADA Note Referral Source: ADA MS3 Referral Reason: Advanced Directive questions ADA met with patient. He reported that he completed the Living Will but he wants all methods to sustain life to be pursued. He said that he wrote in the last page that he wants all methods of life support to be attempted and his son made a tape of his request to pursue all life sustaining methods. SW asked if patient has spoken to MD about his code status and being a full code. Patient did not know but said it's not such a big deal now as the surgery is over. Claudio RN came into the room and he indicated that he would check on patient's code status. SW also update clark driver that patient wanted to be a full code. SW remains available if needs arise. Guerline MORENO
--- NOTE | 2021-09-27 18:04 | RAD_ITS ---
STUDY: X-RAY CHEST REASON FOR EXAM: Male, 81 years old. picc line placement TECHNIQUE: AP COMPARISON: 09/24/2021 FINDINGS: Right arm PICC present with tip overlying the lower SVC. Increased parenchymal opacity in the medial left lung base. Trace left pleural effusion. Normal size heart. Normal mediastinum and shayna. Normal visualized pulmonary arteries. Normal visualized aortic arch and descending thoracic aorta. No acute bony process. There is no demonstrated abnormality of the visualized soft tissue structures of the upper abdomen. RAD/CXR for Line Placement IMPRESSION: 1. Increased retrocardiac left lower lobe infiltrate or atelectasis. Trace left pleural effusion. 2. Right arm PICC with tip overlying the lower SVC. Electronically Signed: Kj Mcarthur MD (Brooks) at 18:56 EST , Service support ,
--- NOTE | 2021-09-27 19:54 | PN.SURG_ITS ---
Subjective Subjective Postop #1 Patient is resting comfortably. Objective Data Objective Data Vital Signs: Vital Signs Temp Pulse Resp BP Pulse Ox 97.8 F 71 18 97/46 L 98 09/27/21 15:20 09/27/21 19:29 09/27/21 15:20 09/27/21 15:20 09/27/21 19:29 Oxygen Flow Rate (L/min) 2 Oxygen Delivery Method Room Air Weight: 143 lb 4.807 oz Body Mass Index (BMI) 21.9 Intake & Output: Intake and Output for Last 24 Hours 09/25/21 09/26/21 09/27/21 23:59 23:59 23:59 Intake Total 1218 / 1218 1913 / 1913 645.4 / 645.4 Output Total 850 / 1050 850 / 1000 1175 / 1175 Balance 368 / 168 1063 / 913 -529.6 / -529.6 Lab / Micro Data Attestation: I reviewed the patient's lab results. Result Diagrams: 09/29/21 07:22 09/29/21 07:22 Labs: Laboratory Results - last 24 hr 09/27/21 05:12: WBC 11.6 H, RBC 3.08 L, Hgb 8.8 L, Hct 29.3 L, MCV 95.1 H, MCH 28.6, MCHC 30.0 L, RDW Std Deviation 49.6 H, RDW Coeff of Duarte 14.6, Plt Count 279, MPV 10.8, Immature Gran % (Auto) 0.700, Neut % (Auto) 78.7 H, Lymph % (Auto) 12.6 L, [place] % (Auto) 7.8, Eos % (Auto) 0.0, Baso % (Auto) 0.2, Absolute Neuts (auto) 9.1 H, Absolute Lymphs (auto) 1.46, Nucleated RBC % 0 09/27/21 05:12: Sodium 135 L, Potassium 4.3, Chloride 103, Carbon Dioxide 26.0, Anion Gap 6, BUN 22 H, Creatinine 0.68 L, Estim Creat Clear Calc 55.32, Est GFR (MDRD) Af Amer 145, Est GFR (MDRD) Non-Af 120, BUN/Creatinine Ratio 32.5 H, Glucose 150 H, Calcium 7.2 L, Total Bilirubin 0.40, AST 26, ALT 47, Alkaline Phosphatase 107, Total Protein 4.7 L, Albumin 1.6 L, Globulin 3.1, Albumin/Globulin Ratio 0.5 L Micro: Microbiology 09/24/21 13:03 Blood Culture (Wb) - Left Hand Bacteria Detection (PCR) - Final 09/24/21 13:03 Blood Culture (Wb) - Left Hand Blood Culture - Preliminary Presumptive Micrococcus spp. 09/26/21 15:00 Tissue - Leg, Left Gram Stain - Final 09/26/21 15:00 Tissue - Leg, Left Wound Culture - Preliminary No growth-Final to follow 09/24/21 14:54 Wound Abcess - Leg, Left Gram Stain - Final 09/24/21 14:54 Wound Abcess - Leg, Left Wound Culture - Final No growth aerobically. 09/24/21 14:00 Urine, Clean Catch Urine Culture - Final Escherichia coli 09/24/21 12:20 Blood Culture (Wb) - Left Forearm Blood Culture - Preliminary No growth in 48 hours. Radiography Diagnostic Testing: Radiology Impression Chest X-Ray 09/27/21 18:04 IMPRESSION: 1. Increased retrocardiac left lower lobe infiltrate or atelectasis. Trace left pleural effusion. 2. Right arm PICC with tip overlying the lower SVC. Electronically Signed: Kj Mcarthur MD (Brooks) at 18:56 EST , Service support , Physical Exam Narrative PHYSICAL EXAMINATION General - Alert and Oriented. HEENT - PERRL. EOMI. Abdomen - Soft and nondistended. Extremities - FROM upper extremities. No axillary adenopathy. Radial pulses are palpable. On the left posterior leg and left lateral leg are two surgical wounds that appear clean. No further evidence of infection. Some oozing noted on the muscle which was controlled with gauze compression. Redressed the wounds with Aquacel Silver followed by a moistened Kerlix gauze followed by a dry gauze and a compression robert wrap. Neuro - CN II-XII grossly intact. Psych - Normal mood and affect. Assessment & Plan Assessment/Plan (1) Abscess of left lower extremity: (2) Cellulitis of left lower extremity: (3) Open wound of left lower leg with complication: PLAN: Patient is resting comfortably. He tolerated the dressing change reasonably well. Mild oozing was noted at the time of the dressing change. Easily controlled with gauze compression. Will continue the dressing changes throughout the weekend. May try VAC placement on Wednesday. Patient lives in [place], [place] and was visiting family in [place] for the holidays. He is anxious to get back to [place]. He will need PT to improve the strength in his legs and to help with ambulation. Continue Meropenem as per ID's recommendations. At the beginning of this admission, he was on Vancomycin, Clindamycin, and Meropenem. Due to the large wound from the surgery, he is at risk for suboptimal healing. Once the wound becomes more superficial as well as having wound contraction from the edges. He's being evaluated to go to TCU after discharge. He can work on his strengthening and ambulation for a little while until ready for discharge home. Will set him up with a Wound Center in [place], [place].
[2021-09-27] MEDS: Atorvastatin Calcium 20 MG Tablet PO (21:19)
[2021-09-28] VITALS (11 sets, daily range): BP systolic 108–125; BP diastolic 57–62; PULSE 55–83; RESP 16–18; TEMP 36.6–37.1; O2SAT 97–99
[2021-09-28] MEDS: Acetaminophen 325 MG Tablet 650 MG PO ×2 (00:27→13:47)
[2021-09-28] MEDS: Lactated Ringers 1,000 ML 100 ML IV (00:27)
[2021-09-28 06:11] LABS: Absolute Lymphocyte Count 1.97 X10^3/uL (0.83-4.51); Absolute Neutrophil Count 6.2 X10^3/uL (2.0-7.7); Basophil# 0.04 X10^3/uL; Basophil% 0.4 % (0-1); Eosinophils% 1.1 % (0-5); Hemoglobin 8.7 g/dL (13.0-16.5); Lymphocyte # 1.97 X10^3/ul (0.83-4.51); Lymphocyte % 21.2 % (19-41); Mean Corp Hgb Conc 31.1 g/dL (32-36); Mean Corpuscular Hgb 28.9 pg (27.0-32.0); Mean Platelet Vol. 10.5 fl (6.2-12.0); Monocyte# 0.91 X10^3/uL; Monocyte% 9.8 % (0-10); NRBC Flagged by Analyzer 0 % (0-5); Neutrophil % 66.9 % (47-70); Platelet Count 278 K/mm3 (150-450); RBC Distribution Width CV 14.6 % (11.6-14.6); RBC Distribution Width SD 49.4 fl (35.1-43.9); Red Blood Count 3.01 M/mm3 (4.6-6.2); White Blood Count 9.3 K/mm3 (4.4-11.0)
[2021-09-28] MEDS: oxyCODONE 5 MG Tablet PO ×2 (06:43→23:10)
[2021-09-28] MEDS: Juven (unflavored) Packet 1 PACKET PO ×2 (08:59→16:35)
[2021-09-28] MEDS: Tamsulosin HCl 0.4 MG Capsule PO (08:59)
[2021-09-28] MEDS: Iron Polysaccharide Complex 150 MG CAPSULE PO (09:02)
[2021-09-28] MEDS: Ezetimibe 10 MG Tablet PO (09:02)
[2021-09-28] MEDS: Senna/Docusate Sodium 1 Tablet 2 TABLET PO (09:02)
[2021-09-28] MEDS: Pantoprazole Sodium 40 MG Tablet PO ×2 (09:02→22:38)
[2021-09-28 09:11] LABS: Anion Gap 9 (5-15); BUN 23 mg/dL (7-18); BUN/Creat Ratio 32.9 RATIO (10-20); Calcium,Total 7.1 mg/dL (8.5-10.1); Chloride 103 mmol/L (98-107); EST Glomerular Filtration Rate 116 mL/min (>60); Est Glom Filt Rate - Afr Amer 140 mL/min (>60); Estimated Creatinine Clearance 57.53 ml/min; Glucose 139 mg/dL (74-106); Potassium 4.5 mmol/L (3.5-5.1); Sodium Level 135 mmol/L (136-145)
--- NOTE | 2021-09-28 09:21 | PN.HOSP_ITS ---
Subjective Subjective Doing well, has a little bit more pain in his left calf today after physical therapy. Objective Data Objective Data Vital Signs: Vital Signs Temp Pulse Resp BP Pulse Ox 98.0 F 75 16 113/61 97 09/28/21 08:39 09/28/21 08:39 09/28/21 08:39 09/28/21 08:39 09/28/21 08:39 Oxygen Flow Rate (L/min) 2 Oxygen Delivery Method Room Air Weight: 149 lb 11.102 oz Body Mass Index (BMI) 21.9 Intake & Output: Intake and Output for Last 24 Hours 09/27/21 09/28/21 09/29/21 03:59 03:59 03:59 Intake Total 2983 / 2983 1026.4 / 1026.4 Output Total 1100 / 1100 1025 / 1025 450 / 450 Balance 1883 / 1883 1.4 / 1.4 -450 / -450 Lab / Micro Data Result Diagrams: 09/28/21 05:20 09/28/21 05:30 Labs: Laboratory Results - last 24 hr 09/28/21 05:20: WBC 9.3, RBC 3.01 L, Hgb 8.7 L, Hct 28.0 L, MCV 93.0, MCH 28.9, MCHC 31.1 L, RDW Std Deviation 49.4 H, RDW Coeff of Duarte 14.6, Plt Count 278, MPV 10.5, Immature Gran % (Auto) 0.600, Neut % (Auto) 66.9, Lymph % (Auto) 21.2, [place] % (Auto) 9.8, Eos % (Auto) 1.1, Baso % (Auto) 0.4, Absolute Neuts (auto) 6.2, Absolute Lymphs (auto) 1.97, Nucleated RBC % 0 09/28/21 05:30: Sodium 135 L, Potassium 4.5, Chloride 103, Carbon Dioxide 23.0, Anion Gap 9, BUN 23 H, Creatinine 0.70, Estim Creat Clear Calc 57.53, Est GFR (MDRD) Af Amer 140, Est GFR (MDRD) Non-Af 116, BUN/Creatinine Ratio 32.9 H, Glucose 139 H, Calcium 7.1 L Micro: Microbiology 09/26/21 15:00 Tissue - Leg, Left Gram Stain - Final 09/26/21 15:00 Tissue - Leg, Left Wound Culture - Preliminary No growth aerobically. 09/24/21 13:03 Blood Culture (Wb) - Left Hand Bacteria Detection (PCR) - Final 09/24/21 13:03 Blood Culture (Wb) - Left Hand Blood Culture - Preliminary Presumptive Micrococcus spp. 09/24/21 14:54 Wound Abcess - Leg, Left Gram Stain - Final 09/24/21 14:54 Wound Abcess - Leg, Left Wound Culture - Final No growth aerobically. 09/24/21 14:00 Urine, Clean Catch Urine Culture - Final Escherichia coli 09/24/21 12:20 Blood Culture (Wb) - Left Forearm Blood Culture - Preliminary No growth in 48 hours. Radiography Diagnostic Testing: Radiology Impression Chest X-Ray 09/27/21 18:04 IMPRESSION: 1. Increased retrocardiac left lower lobe infiltrate or atelectasis. Trace left pleural effusion. 2. Right arm PICC with tip overlying the lower SVC. Electronically Signed: Kj Mcarthur MD (Brooks) at 18:56 EST , Service support , Physical Exam Narrative Const alert, oriented x3 and no apparent distress General Appearance: cooperative HEENT normocephalic and moist oral mucous membranes Eyes PERRL, EOMs intact bilaterally and conjunctivae normal Neck supple and no JVD Resp normal respiratory effort, no retractions, no use of accessory muscles and clear to auscultation bilaterally Auscultation: Negative for crackles, rales, rhonchi or wheezes Cardio regular rate, regular rhythm, S1 normal heart sound, S2 normal heart sound and no murmurs GI soft to palpation, non-tender and non-distended; Negative for hepatosplenomegaly Extremity no clubbing, cyanosis or edema Skin Skin Narrative: Left lower extremity is mildly tender, wound is currently dressed and wrapped however there is some induration extending up to the knee Neuro no focal motor deficits and no sensory deficits noted Psych affect normal Appearance: appropriate Assessment & Plan Assessment/Plan (1) Cellulitis of left lower extremity: (2) Abscess of left lower extremity: PLAN: 1. Multiple abscesses and possible myositis of his left lower extremity ? Continue with broad-spectrum antibiotic including vancomycin, meropenem, clindamycin. E. coli UTI is ESBL positive ? Appreciate ID assistance ? Operative I&D and washout 09/26/2021 ? Wound cultures are pending but will also attempt to get cultures from [place] ? Blood culture with micrococcus in 1 out of 4 bottles, likely contaminant but repeat blood culture is pending ? Continue with pain management 2. CAD status post stent/chronic A. fib/HLD ? Continue to hold his Eliquis ? Blood pressures are current as stable ? Continue with Zetia ? 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 He did receive a platelet transfusion have [place] his platelets are currently normal therefore we will monitor ? Continue with his iron supplement hemoglobin is stable we will continue to mo nitor 4. GERD ? Stable ? Continue with PPI DVT: Lovenox Charges/Coding Visit Charges Inpatient E&M: 87264 Subs Hosp L2
[2021-09-28] MEDS: Morphine 2 MG/ML Syringe IV (15:27)
[2021-09-28] MEDS: 0.9% Saline Lock 10 ML Syringe IV ×2 (15:27→20:23)
[2021-09-28 21:26] LABS: Vancomycin, Trough Level 19.8 ug/mL (5.0-15.0)
--- NOTE | 2021-09-28 21:40 | PCM.RX.CS ---
Consult Pharmacy has been consulted to manage selected antiobiotic: Vancomycin Type of Consult: Follow-up Suspected Infection: Skin/Soft tissue Prior Doses of Antibiotics Received/Current Regimen: Medications Vancomycin HCl 1,250 mg/ (Sodium Chloride) 275 mls @ 167 mls/hr IV Q12H SENTHIL Last Admin: 09/28/21 20:23 Dose: 167 mls/hr Labs: Sodium 135 mmol/L (136-145) L 09/28/21 05:30 Potassium 4.5 mmol/L (3.5-5.1) 09/28/21 05:30 Chloride 103 mmol/L (98-107) 09/28/21 05:30 Carbon Dioxide 23.0 mmol/L (21.0-32.0) 09/28/21 05:30 Anion Gap 9 (5-15) 09/28/21 05:30 BUN 23 mg/dL (7-18) H 09/28/21 05:30 Creatinine 0.70 mg/dL (0.70-1.30) 09/28/21 05:30 Est GFR (MDRD) Af Amer 140 mL/min (>60) 09/28/21 05:30 Est GFR (MDRD) Non-Af 116 mL/min (>60) 09/28/21 05:30 BUN/Creatinine Ratio 32.9 RATIO (10-20) H 09/28/21 05:30 Glucose 139 mg/dL (74-106) H 09/28/21 05:30 Vancomycin Trough 19.8 ug/mL (5.0-15.0) H 09/28/21 20:20 Microbiology: Microbiology 09/26/21 11:16 Blood Culture (Wb) - Anticubital Left Blood Culture - Preliminary No growth in 48 hours. 09/26/21 15:00 Tissue - Leg, Left Gram Stain - Final 09/26/21 15:00 Tissue - Leg, Left Wound Culture - Preliminary No growth aerobically. 09/26/21 15:00 Tissue - Leg, Left Anaerobic Culture - Preliminary No growth in 48 hours. 09/24/21 13:03 Blood Culture (Wb) - Left Hand Bacteria Detection (PCR) - Final 09/24/21 13:03 Blood Culture (Wb) - Left Hand Blood Culture - Preliminary Presumptive Micrococcus spp. 09/24/21 14:54 Wound Abcess - Leg, Left Gram Stain - Final 09/24/21 14:54 Wound Abcess - Leg, Left Wound Culture - Final No growth aerobically. 09/24/21 14:00 Urine, Clean Catch Urine Culture - Final Escherichia coli 09/24/21 12:20 Blood Culture (Wb) - Left Forearm Blood Culture - Preliminary No growth in 48 hours. Weight used for dosin.9 kg Estimated Creatinine Clearance: 58 Goal Trough: 15-20 mcg/mL Pharmacy Plan for Drug Dosing: Vancomycin trough level of 19.8 was within target range of 15-20. Will continue current dosing and re-draw a trough in 4 doses. Pharmacy Service will continue to monitor and adjust dosing as required. Follow-Up Labs: Trough Vancomycin Labs to be done on [date and time ordered]: 09/30/21 @0800
[2021-09-28] MEDS: Atorvastatin Calcium 20 MG Tablet PO (22:38)
[2021-09-29] VITALS (7 sets, daily range): BP systolic 122–127; BP diastolic 52–59; PULSE 62–73; RESP 16–18; TEMP 36.6–36.8; O2SAT 88–98
[2021-09-29] MEDS: Lactated Ringers 1,000 ML 30 ML IV (05:21)
--- NOTE | 2021-09-29 07:25 | PCM.PN.HOSP ---
Objective Data Objective Data Vital Signs: Vital Signs Temp Pulse Resp BP Pulse Ox 98.3 F 73 16 127/52 H 88 09/29/21 05:24 09/29/21 05:24 09/29/21 05:24 09/29/21 05:24 09/29/21 06:46 Oxygen Flow Rate (L/min) 2 Oxygen Delivery Method Airvo Weight: 153 lb 3.54 oz Body Mass Index (BMI) 21.9 Intake & Output: Intake and Output for Last 24 Hours 09/27/21 09/28/21 09/29/21 23:59 23:59 23:59 Intake Total 2026.4 / 2026.4 2036.33 / 2036.33 386.5 / 386.5 Output Total 1175 / 1475 1150 / 1150 500 / 500 Balance 851.4 / 551.4 886.33 / 886.33 -113.5 / -113.5 Lab / Micro Data Result Diagrams: 09/28/21 05:20 09/28/21 05:30 Labs: Laboratory Results - last 24 hr 09/28/21 05:30: Sodium 135 L, Potassium 4.5, Chloride 103, Carbon Dioxide 23.0, Anion Gap 9, BUN 23 H, Creatinine 0.70, Estim Creat Clear Calc 57.53, Est GFR (MDRD) Af Amer 140, Est GFR (MDRD) Non-Af 116, BUN/Creatinine Ratio 32.9 H, Glucose 139 H, Calcium 7.1 L 09/28/21 20:20: Vancomycin Trough 19.8 H Micro: Microbiology 09/26/21 11:16 Blood Culture (Wb) - Anticubital Left Blood Culture - Preliminary No growth in 48 hours. 09/26/21 15:00 Tissue - Leg, Left Gram Stain - Final 09/26/21 15:00 Tissue - Leg, Left Wound Culture - Preliminary No growth aerobically. 09/26/21 15:00 Tissue - Leg, Left Anaerobic Culture - Preliminary No growth in 48 hours. 09/24/21 13:03 Blood Culture (Wb) - Left Hand Bacteria Detection (PCR) - Final 09/24/21 13:03 Blood Culture (Wb) - Left Hand Blood Culture - Preliminary Presumptive Micrococcus spp. 09/24/21 14:54 Wound Abcess - Leg, Left Gram Stain - Final 09/24/21 14:54 Wound Abcess - Leg, Left Wound Culture - Final No growth aerobically. 09/24/21 14:00 Urine, Clean Catch Urine Culture - Final Escherichia coli 09/24/21 12:20 Blood Culture (Wb) - Left Forearm Blood Culture - Preliminary No growth in 48 hours.
[2021-09-29 07:43] LABS: Absolute Lymphocyte Count 1.76 X10^3/uL (0.83-4.51); Absolute Neutrophil Count 5.8 X10^3/uL (2.0-7.7); Basophil# 0.06 X10^3/uL; Basophil% 0.7 % (0-1); Eosinophil# 0.13 X10^3/uL; Eosinophils% 1.5 % (0-5); Hematocrit 27.2 % (40-54); Hemoglobin 8.6 g/dL (13.0-16.5); Lymphocyte # 1.76 X10^3/ul (0.83-4.51); Lymphocyte % 20.3 % (19-41); Mean Corp Hgb Conc 31.6 g/dL (32-36); Mean Corpuscular Volume 91.6 fL (80-94); Mean Platelet Vol. 11.7 fl (6.2-12.0); Monocyte# 0.89 X10^3/uL; Monocyte% 10.3 % (0-10); NRBC Flagged by Analyzer 0 % (0-5); Neutrophil # 5.77 X10^3/uL (2.7-7.7); Neutrophil % 66.4 % (47-70); Platelet Count 278 K/mm3 (150-450); RBC Distribution Width CV 14.6 % (11.6-14.6); RBC Distribution Width SD 48.9 fl (35.1-43.9); Red Blood Count 2.97 M/mm3 (4.6-6.2); White Blood Count 8.7 K/mm3 (4.4-11.0)
[2021-09-29 08:03] LABS: Anion Gap 8 (5-15); BUN 29 mg/dL (7-18); BUN/Creat Ratio 54.5 RATIO (10-20); Calcium,Total 7.3 mg/dL (8.5-10.1); Chloride 104 mmol/L (98-107); Creatinine, Serum 0.53 mg/dL (0.70-1.30); EST Glomerular Filtration Rate 159 mL/min (>60); Est Glom Filt Rate - Afr Amer 192 mL/min (>60); Estimated Creatinine Clearance 57.95 ml/min; Glucose 94 mg/dL (74-106); Potassium 4.9 mmol/L (3.5-5.1); Sodium Level 139 mmol/L (136-145)
[2021-09-29] MEDS: Pantoprazole Sodium 40 MG Tablet PO (09:06)
[2021-09-29] MEDS: Ezetimibe 10 MG Tablet PO (09:06)
[2021-09-29] MEDS: Tamsulosin HCl 0.4 MG Capsule PO (09:06)
[2021-09-29] MEDS: Enoxaparin 40 MG/0.4 ML Syringe SC (09:06)
[2021-09-29] MEDS: Iron Polysaccharide Complex 150 MG CAPSULE PO (09:06)
[2021-09-29] MEDS: Juven (unflavored) Packet 1 PACKET PO (09:07)
[2021-09-29] MEDS: oxyCODONE 5 MG Tablet PO (09:15)
--- NOTE | 2021-09-29 10:11 | WOUNDNOTE ---
wound photo: left medial/posterior lower leg
--- NOTE | 2021-09-29 10:12 | WOUNDNOTE ---
wound photo: left lateral lower leg
--- NOTE | 2021-09-29 11:21 | CASEMGMT ---
Social Work Note Pt likely to discharge to TCU today. SW placed a call to Shandra with TCU and updated her. Pt will need COVID test to return to TCU. 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
--- NOTE | 2021-09-29 13:23 | PN.ID_ITS ---
Physical Exam Narrative Feeling better, wound vac in place, no fever, no n/v/d Const alert and no apparent distress General Appearance: cooperative Resp normal air movement and clear to auscultation bilaterally Cardio regular rate and regular rhythm GI normal to inspection, nondistended, normoactive bowel sounds Skin Skin Narrative: reviewed photos ID ID: Route of nutrition/ use of supplements: [] Nutritional Intake: [] IV Site: [] Branch Catheter: [] Assessment & Plan Assessment/Plan (1) Abscess of left lower extremity: PLAN: Multiple abscess of LLE with suspected compartment syndrome, improved after spontaneous drainage. Admitted to [facility] 09/01-09/09 with LLE abscess and pasteurella bacteremia. Will request cxs from [facility]. 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 Taken to OR 09/[address] Oseguera. Ucx with esbl ecoli. Will stop vanc/clinda, cont meropenem for now. Surg cx and wound cx neg so far. 1/2 bcx with micrococcus, consistent with contaminant. Will follow
--- NOTE | 2021-09-29 13:49 | TREXTCAR_ITS ---
Diet 09/26/21 18:52 Diet: Cardiac - Heart Healthy Type of Dietary Supplement:: Ensure Compact Is pt able to select menu?: Yes Diet Comments: add 1 oz add'l protein per meal. Continue low k+, no bananas., oj, melon Routine Orders/Code Status Enema Type: Fleetz Enema Frequency: Daily PRN Suppository Type: Dulcolax 10mg Suppository Frequency: Daily PRN Keep PO Greater than or Equal to (%): 92 Routine Lab Work: - (Repeat CBC, CMP in 3-5 days. May fax results also to Dr. Beltran.) Code Status: Full Code Wound(s) left leg: Wound Type: Abscess left lateral lower leg: Wound Type: Open Surgical Wound Dressing Change: applied KCI wound VAC left calf: Wound Type: Open Surgical Wound Dressing Change: applied KCI wound VAC Suggestions for Active Care Change Position every (hours): 2 Hours to sit in a chair: 4 Times a day to sit in chair: 3 Therapies Weight Bearing: Weight bearing as tolerated Extremity Affected:: Left Lower (Above heart and support under knee and ankle. SNUG BHAKTI wrap from toe to above knee, overlapping, no skin showing. Continuous and PRN if comes undone.) Physical Therapy: Eval and Treat Occupational Therapy: Eval and Treat Problem/Diagnosis (1) Abscess of left lower extremity: Status: Acute Allergies/Procedures Done in Hospital Allergies aspirin Adverse Reaction (Verified 09/24/21 11:09) Hives Penicillins Adverse Reaction (Verified 09/24/21 11:09) PT UNSURE OF REACTION zolpidem [From Ambien] Adverse Reaction (Verified 09/24/21 11:09) Other Procedures: - (OR 09/26/[address] Oseguera w/ Surgical preparation left posterior leg with incision and drainage and excisional debridement abscess.) Type of Care/Length of Stay Estimated LOS: Convalescent Care Less Than 30 days Type of Care Needed: Skilled Rehab Potential: Good Prognosis: Good Additional Orders/Day of Discharge Additional Orders: (1) SNUG bhakti wraps as noted above. (2) Fall precautions. (3) IS 10x/hr 7a-7p. (4) Continue VAC care MWF 150 mmHg (5) Encourage elevation LLE above heart when in bed or seated. (6) Recommend pre-treatment for at least the first several VAC changes rounds. Day of Discharge: 09/29/21 Dietary and Speech Recommendations Dietitian Recommendations/Changes: continue Cardiac heart healthy diet order. Addition of Hugo BID as med pass and 1 oz add'tl protein per meal Discharge Plan Admission Admit Date/Time: 09/24/21 13:56 Primary Reason for Your Visit: LLE multiple abscesses w/ suspected compartment syndrome Attending Provider: Kaitlin Cherry Consulting Providers: Alexandr Beltran ; Devin Oseguera Instructions Patient Instructions: Nutrition for Wound Healing, Negative Pressure Wound Therapy Additional Instructions / Restrictions: WOUND VAC CARE: (1) Wound RN continued evaluation at TCU with currently VAC MWF with level of suction 150 mmHg. Last performed 09/29/21. Best to pre-medication for wound care. (2) Patient restarted on eliquis therefore please continue to closely monitor VAC output and if any concerning bleeding notify Dr. Oseguera/Sulma Wound RN immediately. ANTIBIOTIC CARE: (1) Per Dr. Beltran continue 4 additional days of treatment with Meropenem IV with current RUE PICC line in place. PICC d/c following completion per TCU physician discretion. (2) Continue routine RUE PICC line care. Discharge Orders/Prescriptions Prescriptions: New meropenem 1 gram Recon Soln 1 g IV Q8 4 Days Qty: 0 RF: 0 Hugo (with collagen) 7-7-1.5 gram Powder In Packet 1 ea PO BIDCM 60 Days Qty: 0 RF: 0 acetaminophen [Tylenol] 325 mg Tablet 650 mg PO Q6H PRN PRN (Reason: Pain Score 1-10/Temp > 100.7 F) Qty: 0 RF: 0 albuterol sulfate 2.5 mg /3 mL (0.083 %) Solution For Nebulization 2.5 mg inhalation Q4H PRN (Reason: Shortness of Breath/Wheezing) Qty: 0 RF: 0 Continued polyethylene glycol 3350 [Miralax] 17 gram Powder In Packet 17 g PO DAILY RF: 0 ascorbic acid (vitamin C) [Vitamin C] 500 mg Tablet 1,000 mg PO DAILY RF: 0 tamsulosin [Flomax] 0.4 mg Capsule 0.4 mg PO DAILY RF: 0 pantoprazole 40 mg Tablet,Delayed Release (Dr/Ec) 40 mg PO BID RF: 0 ezetimibe [Zetia] 10 mg Tablet 10 mg PO DAILY RF: 0 Eliquis 5 mg Tablet 5 mg PO BID RF: 0 multivitamin Tablet 1 tab PO BREAKFAST RF: 0 atorvastatin 20 mg Tablet 20 mg PO QHS RF: 0 polysaccharide iron complex [Ferrex 150] 150 mg iron Capsule 150 mg PO DAILY RF: 0 sennosides-docusate sodium [Senokot-S] 8.6-50 mg Tablet 1 tab-cap PO DAILY RF: 0 acyclovir 400 mg Tablet 400 mg PO BID RF: 0 Ensure Compact Liquid 118 ml PO TIDCM RF: 0 midodrine 10 mg Tablet 10 mg PO TIDCM RF: 0 melatonin 5 mg Tablet 5 mg PO QHS RF: 0 Eucerin Cream 1 applic TOPICAL DAILY RF: 0 menthol-zinc oxide [Calmoseptine] 0.44-20.6 % Ointment 1 applic TOPICAL BID RF: 0 oxycodone 5 mg Tablet 5 mg PO Q4H PRN (Reason: Pain (Scale Score 6-10)) 5 Days Qty: 30 RF: 0 Discontinued acetaminophen 500 mg Tablet 1,000 mg PO Q6H PRN (Reason: PAIN SCALE 1-5) RF: 0 Referrals / Follow Up: DELON DE GUZMAN [Other] (Follow-up within 1-2 days SNF discharge.) Devin Oseguera MD [STAFF PHYSICIAN] - (Wound RN will follow upon TCU transition. Please follow-up with Dr. Oseguera at Wound Care in 1 week or per his discretion.) Alexandr Beltran MD [STAFF PHYSICIAN] - (Please follow-up as needed or if any concerns. No routine visits necessary.) Disposition Disposition (needs filled in before D/C Order can be placed): Long Term Facility
--- NOTE | 2021-09-29 13:53 | PCM.DC.SUM ---
Providers Date of Admission: 09/24/21 Primary Care Physician: DELON DE GUZMAN Consultations 09/24/21 16:17 Consult: Infectious Disease Routine Consulting Provider: Alexandr Beltran Reason for Consult: Deep tissue infection/Nec fas in LLE EMERGENT Consult: No Notified: Yes Date Notified: 09/24/21 Time Notified: 13:30 Method of Notification: Verbal Method of Consult:: In-Person Consult: Vascular Surgery Routine Consulting Provider: Devin Oseguera Reason for Consult: For drainage of deep tissue infection, LLE EMERGENT Consult: No Notified: Yes Date Notified: 09/24/21 Time Notified: 13:15 Method of Notification: Verbal 09/25/21 06:40 Consult: 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 Routine Comment: Reason for Consult:: left leg wounds Reason For Visit: DEEP TISSUE INFECTION/NEC FAS Diagnosis Discharge Diagnosis (1) Abscess of left lower extremity: Status: Acute Code(s): L02.416 - Cutaneous abscess of left lower limb Medications at Discharge Home Medications Eliquis 5 mg PO BID 09/16/21 ascorbic acid (vitamin C) [Vitamin C] 1,000 mg PO DAILY 09/16/21 ezetimibe [Zetia] 10 mg PO DAILY 09/16/21 pantoprazole 40 mg PO BID 09/16/21 polyethylene glycol 3350 [Miralax] 17 g PO DAILY 09/16/21 tamsulosin [Flomax] 0.4 mg PO DAILY 09/16/21 Ensure Compact 118 ml PO TIDCM 09/24/21 Eucerin 1 applic TOPICAL DAILY 09/24/21 acyclovir 400 mg PO BID 09/24/21 atorvastatin 20 mg PO QHS 09/24/21 melatonin 5 mg PO QHS 09/24/21 menthol-zinc oxide [Calmoseptine] 1 applic TOPICAL BID 09/24/21 midodrine 10 mg PO TIDCM 09/24/21 multivitamin 1 tab PO BREAKFAST 09/24/21 polysaccharide iron complex [Ferrex 150] 150 mg PO DAILY 09/24/21 sennosides-docusate sodium [Senokot-S] 1 tab-cap PO DAILY 09/24/21 acetaminophen [Tylenol] 650 mg PO Q6H PRN PRN #0 tab 09/29/21 albuterol sulfate 2.5 mg INHALATION Q4H PRN #0 ml 09/29/21 [id number] [Hugo (with collagen)] 1 ea PO BIDCM 09/29/21 meropenem 1 g IV Q8 09/29/21 oxycodone 5 mg PO Q4H PRN 5 Days #30 tab 09/29/21 Hospital Course Operations - Procedures Wound vac placement (09/29/21 initial placement.) and - (OR 09/26/[address] Oseguera w/ Surgical preparation left posterior leg with incision and drainage and excisional debridement abscess.) Summary of Care Provided Minutes Spent on Discharge: 35 Hospital Course: ATTENDING PHYSICIAN DISCHARGE NOTE: Discharge Diagnoses: #1. Multiple abscesses left lower extremity with suspected component compartment syndrome with spontaneous drainage #2. ESBL E. coli acute complicated urinary tract infection #3. CAD status post PCI #4. Chronic atrial fibrillation #5. Hypertension #6. Hyperlipidemia #7. Autoimmune thrombocytopenia, chronic #8. Chronic iron deficiency anemia Discharge Summary: The patient is a 81 y/o M w/ PMHx: Chronic AF, HTN, HLD, CAD s/p PCI, BPH, GERD, Chronic anemia/Fe deficiency anemia who presents to the [facility] ED on 09/24/21 w/ history of extensive recent evaluation at [facility] for left lower extremity abscess with also noted platelet transfusion with normalization following with wound cultures at outside facility with Pasteurella bacteremia eventually transition to TCU however upon arrival patient with worsening edema, swelling and pain prompting [facility] ED evaluation and eventual admission. Patient with continued evaluation by infectious disease with noted [place] 09/01 through 09/09 evaluation for left lower extremity abscess with Pasteurella bacteremia at that time noted to work it is due with no specific clear etiology for the infection, taken to the OR 09/[address] Oseguera with extensive intervention treated initially the vancomycin, clindamycin and meropenem, transition to only meropenem 09/29/2021 with per discussion with infectious disease plan continued 4 days of antibiotic therapy. OR cultures and wound cultures remain negative at [facility]. Patient with 1 of 2 blood cultures that have micrococcus however it was considered a contaminant. 09/29/2021 wound RN evaluation with placement of wound VAC at that time noted to be very dry therefore patient resumed on his anticoagulant therapy which was cleared by Dr. Oseguera additionally. Given clinical improvement and stability patient transition to TCU for continued ongoing wound care, VAC change and close monitoring with IV antibiotic therapy continuation. Discharge Time: > 35 Minutes DAY OF DISCHARGE PROGRESS NOTE: Subjective: Patient without acute event overnight per self and nursing report. Patient notes pain improved with oral narcotic therapy only, rated 4-5 at its worst. Patient with plan VAC placement today to which she is amenable. Following VAC placement discussions with wound RN with no marked bleeding therefore initiated on his anticoagulant therapy from chemoprophylaxis which surgeon was amenable to. Patient denies fever, chills, nausea, emesis, abdominal pain, chest pain or dyspnea. Patient agreeable to discharge to TCU for ongoing evaluation and care as well as antibiotic therapy and VAC changes. Patient will be discharged with follow-up with primary care physician as well as follow-up with his surgeon at the wound care center. Objective: T 97.6, heart rate 76, BP 122/59, respiratory rate 18, 98% room air. Physical Examination: General: awake, alert, oriented x 3 and cooperative, seated upright in the medical surgical bed, fatigued otherwise no distress. Skin: normal color, normal turgor, no icterus, no cyanosis with left lower extremity dressing in place with no drainage, VAC placement pending. HEENT: AT/NC, EOMI, PERRLA, MMM. Lungs: Diminished, greater bases, appropriate effort, no rales, ronchi or wheezing; Heart: Irregular, rate controlled; no gallop, rub audible. Abdomen: soft, NTTP, ND, normal BS. Extremities: no cyanosis, no clubbing, left lower extremity with dressing in place, elevated leg, no drainage, pedal to distal freeman pitting edema. Neurological: patient awake, alert, oriented x 3; cognitive function appears intact upon questioning,; pupils equally reactive to light and accomodation; cranial nerves II-XII grossly normal, moving all 4 extremities although somewhat limited left lower extremity given recent ORN pain, strength moderately to severely globally decreased given left lower extremity recent ORN pain. Psychiatric: affect appears normal, no acute evidence of depressive or anxiety feelings. Assessment and Plan: Please see hospital summary above. Weight / BMI Weight Weight: 153 lb 3.54 oz Body Mass Index (BMI) 21.9 ABG / Lab / Microbiology Data Result Diagrams: 09/29/21 07:22 09/29/21 07:22 Laboratory: Laboratory Results - last 24 hr 09/28/21 20:20: Vancomycin Trough 19.8 H 09/29/21 07:22: WBC 8.7, RBC 2.97 L, Hgb 8.6 L, Hct 27.2 L, MCV 91.6, MCH 29.0, MCHC 31.6 L, RDW Std Deviation 48.9 H, RDW Coeff of Duarte 14.6, Plt Count 278, MPV 11.7, Immature Gran % (Auto) 0.800, Neut % (Auto) 66.4, Lymph % (Auto) 20.3, [place] % (Auto) 10.3 H, Eos % (Auto) 1.5, Baso % (Auto) 0.7, Absolute Neuts (auto) 5.8, Absolute Lymphs (auto) 1.76, Nucleated RBC % 0 09/29/21 07:22: Sodium 139, Potassium 4.9, Chloride 104, Carbon Dioxide 27.0, Anion Gap 8, BUN 29 H, Creatinine 0.53 L, Estim Creat Clear Calc 57.95, Est GFR (MDRD) Af Amer 192, Est GFR (MDRD) Non-Af 159, BUN/Creatinine Ratio 54.5 H, Glucose 94, Calcium 7.3 L Microbiology: Microbiology 09/24/21 12:20 Blood Culture (Wb) - Left Forearm Blood Culture - Final No growth in 5 days. 09/26/21 15:00 Tissue - Leg, Left Gram Stain - Final 09/26/21 15:00 Tissue - Leg, Left Wound Culture - Final No growth aerobically. 09/26/21 15:00 Tissue - Leg, Left Anaerobic Culture - Preliminary No growth in 48 hours. 09/26/21 11:16 Blood Culture (Wb) - Anticubital Left Blood Culture - Preliminary No growth in 48 hours. 09/24/21 13:03 Blood Culture (Wb) - Left Hand Bacteria Detection (PCR) - Final 09/24/21 13:03 Blood Culture (Wb) - Left Hand Blood Culture - Preliminary Presumptive Micrococcus spp. 09/24/21 14:54 Wound Abcess - Leg, Left Gram Stain - Final 09/24/21 14:54 Wound Abcess - Leg, Left Wound Culture - Final No growth aerobically. 09/24/21 14:00 Urine, Clean Catch Urine Culture - Final Escherichia coli Meaningful Use Info Meaningful Use Diagnoses (Choose all that apply): None applicable Discharge Plan Admission Admit Date/Time: 09/24/21 13:56 Primary Reason for Your Visit: LLE multiple abscesses w/ suspected compartment syndrome Attending Provider: Kaitlin Cherry Consulting Providers: Alexandr Beltran ; Devin Oseguera Instructions Patient Instructions: Nutrition for Wound Healing, Negative Pressure Wound Therapy Additional Instructions / Restrictions: WOUND VAC CARE: (1) Wound RN continued evaluation at TCU with currently VAC MWF with level of suction 150 mmHg. Last performed 09/29/21. Best to pre-medication for wound care. (2) Patient restarted on eliquis therefore please continue to closely monitor VAC output and if any concerning bleeding notify Dr. Oseguera/Sulma Wound RN immediately. ANTIBIOTIC CARE: (1) Per Dr. Beltran continue 4 additional days of treatment with Meropenem IV with current RUE PICC line in place. PICC d/c following completion per TCU physician discretion. (2) Continue routine RUE PICC line care. Discharge Orders/Prescriptions Prescriptions: New acetaminophen [Tylenol] 325 mg Tablet 650 mg PO Q6H PRN PRN (Reason: Pain Score 1-10/Temp > 100.7 F) Qty: 0 RF: 0 albuterol sulfate 2.5 mg /3 mL (0.083 %) Solution For Nebulization 2.5 mg inhalation Q4H PRN (Reason: Shortness of Breath/Wheezing) Qty: 0 RF: 0 Continued polyethylene glycol 3350 [Miralax] 17 gram Powder In Packet 17 g PO DAILY RF: 0 ascorbic acid (vitamin C) [Vitamin C] 500 mg Tablet 1,000 mg PO DAILY RF: 0 tamsulosin [Flomax] 0.4 mg Capsule 0.4 mg PO DAILY RF: 0 pantoprazole 40 mg Tablet,Delayed Release (Dr/Ec) 40 mg PO BID RF: 0 ezetimibe [Zetia] 10 mg Tablet 10 mg PO DAILY RF: 0 Eliquis 5 mg Tablet 5 mg PO BID RF: 0 multivitamin Tablet 1 tab PO BREAKFAST RF: 0 atorvastatin 20 mg Tablet 20 mg PO QHS RF: 0 polysaccharide iron complex [Ferrex 150] 150 mg iron Capsule 150 mg PO DAILY RF: 0 sennosides-docusate sodium [Senokot-S] 8.6-50 mg Tablet 1 tab-cap PO DAILY RF: 0 acyclovir 400 mg Tablet 400 mg PO BID RF: 0 Ensure Compact Liquid 118 ml PO TIDCM RF: 0 midodrine 10 mg Tablet 10 mg PO TIDCM RF: 0 melatonin 5 mg Tablet 5 mg PO QHS RF: 0 Eucerin Cream 1 applic TOPICAL DAILY RF: 0 menthol-zinc oxide [Calmoseptine] 0.44-20.6 % Ointment 1 applic TOPICAL BID RF: 0 oxycodone 5 mg Tablet 5 mg PO Q4H PRN (Reason: Pain (Scale Score 6-10)) 5 Days Qty: 30 RF: 0 Discontinued acetaminophen 500 mg Tablet 1,000 mg PO Q6H PRN (Reason: PAIN SCALE 1-5) RF: 0 No Action meropenem 1 gram recon soln 1 g IV Q8 RF: 0 Hugo (with collagen) 7-7-1.5 gram powder in packet 1 ea PO BIDCM RF: 0 Referrals / Follow Up: DELON DE GUZMAN [Other] (Follow-up within 1-2 days SNF discharge.) Devin Oseguera MD [STAFF PHYSICIAN] - (Wound RN will follow upon TCU transition. Please follow-up with Dr. Oseguera at Wound Care in 1 week or per his discretion.) Alexandr Beltran MD [STAFF PHYSICIAN] - (Please follow-up as needed or if any concerns. No routine visits necessary.) Disposition Disposition (needs filled in before D/C Order can be placed): [facility] Charges/Coding Visit Charges Inpatient E&M: 37799 Disch Hosp
== END 2021-09-29 15:53 | disposition skilled nursing facility (03) | DRG 464 ==
LOC: ED 15:03 → MS3 15:44
PROVIDERS: Family Medicine; Hospitalist; Surgery; Admitting Provider Internal Medicine; Emergency Provider Student in an Organized Health Care Education/Training Program; Visit Provider Family Medicine
PROC: 0JBR0ZZ Excision of Left Foot Subcutaneous Tissue and Fascia, Open Approach (ICD-10-PCS; principal; 2021-09-26 13:20)
DX: M60.062 Infective myositis, left lower leg (principal); T79.A22A Traumatic compartment syndrome of left lower extremity, initial encounter; L97.329 Non-pressure chronic ulcer of left ankle with unspecified severity; L02.416 Cutaneous abscess of left lower limb; I48.20 Chronic atrial fibrillation, unspecified; N39.0 Urinary tract infection, site not specified; Z16.12 Extended spectrum beta lactamase (ESBL) resistance; L03.116 Cellulitis of left lower limb; K21.9 Gastro-esophageal reflux disease without esophagitis; I10 Essential (primary) hypertension; E78.5 Hyperlipidemia, unspecified; I25.10 Atherosclerotic heart disease of native coronary artery without angina pectoris; B96.20 Unspecified Escherichia coli [E. coli] as the cause of diseases classified elsewhere; E87.5 Hyperkalemia; D50.9 Iron deficiency anemia, unspecified; N40.0 Benign prostatic hyperplasia without lower urinary tract symptoms; Z87.891 Personal history of nicotine dependence; Z79.01 Long term (current) use of anticoagulants; R79.1 Abnormal coagulation profile; Z79.899 Other long term (current) drug therapy; Z95.5 Presence of coronary angioplasty implant and graft
CPT/HCPCS: 36415; 36569; 71045; 73701; 80048; 80053; 80202; 81001; 82550; 83605; 83735; 84100; 84484; 85025; 85610; 85730; 87040; 87070; 87075; 87077; 87086; 87088; 87102; 87149; 87176; 87186; 87205; 87206; 87426; 87640; 87641; 88304; 88305; 93005; 97110; 97116; 97162; 97166; 97530; 97535; 97802; 99251; 99285; C1713; J2185; J7030; J7040; J7050; J7120; Q9967; A4216; G0463; J0330; J2405

== ENCOUNTER 2021-09-29 15:55 | Inpatient (IN) | payer MEDICARE, OTHER, SELFPAY ==
[2021-09-29 15:58] VITALS: BP 148/77; PULSE 76; RESP 16; TEMP 36.4; O2SAT 99
[2021-09-29 16:31] VITALS: BMI 22.0
[2021-09-29 18:12] VITALS: PULSE 82; RESP 16; O2SAT 96
[2021-09-29] MEDS: Juven (unflavored) Packet 1 PACKET PO (18:50)
[2021-09-29] MEDS: APIXABAN 5 MG TABLET PO (18:50)
[2021-09-29] MEDS: Pantoprazole Sodium 40 MG Tablet PO (18:51)
[2021-09-29] MEDS: Midodrine HCl 5 MG Tablet 10 MG PO (18:51)
[2021-09-29] MEDS: Acyclovir 200 MG Capsule 400 MG PO (18:51)
[2021-09-29] MEDS: Acetaminophen 325 MG Tablet 650 MG PO (18:55)
[2021-09-29 20:20] VITALS: O2SAT 96
--- NOTE | 2021-09-29 20:24 | HP.PCM_ITS ---
HPI - General General Date of Admission: 09/29/21 HPI Narrative CATALINA MANCERA, is a 81 Male who presents with followin09/22/2021 CT left lower extremity showed multiple large abscesses. 09/24/2021 [facility] Emergency Department with left lower extremity abscess. Dr. Oseguera planning operative incision and drainage. K 5.3, no EKG changes. EKG showed atrial fibrillation with rapid ventricular response. Vancomycin, Clindamycin, Cefepime given. 09/24/2021 Admit to Hospital. Continue Vancomycin, Clindamycin, Cefepime for left lower extremity cellulitis/abscess. Hold Eliquis, prepare for surgery. 09/25/2021 Dr. Beltran, patient works at [employer], but does not touch animals. Await cultures, continue empiric Vancomycin, Clindamycin, Cefepime. 09/25/2021 Surgery cancelled. Plan surgery 09/26/2021. 09/26/2021 Left lower extremity pain 4 out of 10, swelling improved. Urine culture growing resistant E. Coli, change Cefepime to Zosyn. Blood culture growing gram positive cocci in clusters in 1 aerobic bottle. Repeat blood cultures. 09/26/2021 Dr. Beltran, urine culture grew ESBL E. Coli. Change antibiotics to Vancomycin, Meropenem, Clindamycin. If no fasciitis/gas gangrene, stop Clindamycin. 09/26/21 Dr. Oseugera performed surgical preparation of left posterior leg and incision and drainage, excisional debridement abscess. 09/27/2021 Pain controlled. Await Wound VAC to left lower extremity. Cultures pending, need IV antibiotics. Vancomycin, Meropenem, Clindamycin for left lower extremity abscess/ESBL E. Coli urinary tract infection. 09/28/2021 Increase left calf pain after PT. Blood culture micrococcus, likely contaminant. 09/29/2021 Wound VAC to left lower extremity. Dr. Beltran recommend continuing Meropenem IV. 09/29/2021 Admit to TCU with debility, here for rehabilitation, strengthening, wound care, IV antibiotics, prior to discharge to [facility]. [facility] Medical History Anemia Atrial fibrillation History of stress test Home Medications Eliquis 5 mg PO BID 09/16/21 [History Last Taken 09/24/21 06:16] ascorbic acid (vitamin C) [Vitamin C] 1,000 mg PO DAILY 09/16/21 [History Last Taken 09/24/21 08:08] ezetimibe [Zetia] 10 mg PO DAILY 09/16/21 [History Last Taken 09/24/21 06:16] pantoprazole 40 mg PO BID 09/16/21 [History Last Taken 09/24/21 06:16] polyethylene glycol 3350 [Miralax] 17 g PO DAILY 09/16/21 [History Last Taken 09/24/21 06:15] tamsulosin [Flomax] 0.4 mg PO DAILY 09/16/21 [History Last Taken 09/24/21 08:08] Ensure Compact 118 ml PO TIDCM 09/24/21 [History Last Taken 09/23/21 17:52] Eucerin 1 applic TOPICAL DAILY 09/24/21 [History Last Taken 09/24/21 06:16] acyclovir 400 mg PO BID 09/24/21 [History Last Taken 09/24/21 06:16] atorvastatin 20 mg PO QHS 09/24/21 [History Last Taken 09/23/21 21:03] melatonin 5 mg PO QHS 09/24/21 [History Last Taken 09/23/21 21:03] menthol-zinc oxide [Calmoseptine] 1 applic TOPICAL BID 09/24/21 [History Last Taken 09/24/21 06:17] midodrine 10 mg PO TIDCM 09/24/21 [History Last Taken 09/24/21 08:08] multivitamin 1 tab PO BREAKFAST 09/24/21 [History Last Taken 09/24/21 08:08] polysaccharide iron complex [Ferrex 150] 150 mg PO DAILY 09/24/21 [History Last Taken 09/24/21 08:08] sennosides-docusate sodium [Senokot-S] 1 tab-cap PO DAILY 09/24/21 [History Last Taken 09/24/21 06:16] acetaminophen [Tylenol] 650 mg PO Q6H PRN PRN #0 tab 09/29/21 [Rx Last Taken Unknown] albuterol sulfate 2.5 mg INHALATION Q4H PRN #0 ml 09/29/21 [Rx Last Taken Unknown] [id number] [Hugo (with collagen)] 1 ea PO BIDCM 09/29/21 [History Last Taken Unknown] meropenem 1 g IV Q8 09/29/21 [History Last Taken Unknown] oxycodone 5 mg PO Q4H PRN 5 Days #30 tab 09/29/21 [Rx Last Taken 09/19/21 14:19] Allergy/AdvReac Type Severity Reaction Status Date / Time aspirin AdvReac Hives Verified 09/24/21 11:09 Penicillins AdvReac PT UNSURE Verified 09/24/21 11:09 OF REACTION zolpidem [From Ambien] AdvReac Other Verified 09/24/21 11:09 Family History Mother Breast cancer Father Pancreatic cancer Surgical History History of coronary artery stent placement History of incision and drainage Social History household members: spouse Smoking Status: Former smoker alcohol intake: never substance use type: does not use ROS Constitutional Constitutional: Denies chills, fever(s) or weight gain ENT HEENT: Denies headache(s), nasal congestion or nasal discharge Cardiovascular Cardiovascular: Denies chest pain or palpitations Respiratory/Chest Respiratory/Chest: Denies cough, excessive phlegm production or shortness of breath with exertion Gastrointestinal Gastrointestinal: Denies abdominal pain, nausea or vomiting Genitourinary Genitourinary: Denies dysuria Musculoskeletal Musculoskeletal: Denies joint pain or joint swelling Integumentary Integumentary: Denies rash or wounds Neurologic Neurologic: Denies focal weakness, numbness or tingling Psychiatric Psychiatric: Denies anxiety, auditory hallucinations, depression, homicidal ideation or suicidal ideation Vital Signs Vital Signs Vital Signs: 09/29/21 15:58 09/29/21 18:12 09/29/21 20:20 Temperature 97.6 F L Temperature Source Temporal Pulse Rate 76 82 Pulse Rhythm Irregular Pulse Strength Normal (2+) Respiratory Rate 16 16 Respiratory Effort Normal Non-Labored Respiratory Depth Normal Respiratory Pattern Normal Blood Pressure 148/77 H Blood Pressure Mean 100 Blood Pressure Source Monitor Blood Pressure Position Semi-Fowlers Blood Pressure Location Left Arm Pulse Ox 99 96 96 Oxygen Delivery Method Room Air Room Air Room Air Weight Weight: 65.771 kg Body Mass Index (BMI) 22.0 Physical Exam Const alert and oriented x3 General Appearance: cooperative HEENT normocephalic Eyes PERRL and EOMs intact bilaterally Neck supple, no JVD and no carotid bruits Resp normal respiratory effort, normal air movement and clear to auscultation bilaterally Cardio regular rate and regular rhythm GI normal to inspection, nondistended, normoactive bowel sounds, non-tender and non-distended Extremity normal capillary refill Extremity Narrative: Left lower extremity Wound VAC, BHAKTI wrap dressing. General Extremity: Negative for edema Skin no rashes or lesions noted General Skin Exam: no breakdown Psych affect normal Appearance: appropriate Assessment & Plan Assessment/Plan (1) Debility: (2) Abscess of left lower extremity: (3) Cellulitis of left lower extremity: (4) Bacteremia: (5) Sepsis: (6) Infection due to ESBL-producing Escherichia coli: (7) Autoimmune thrombocytopenia: (8) Atrial fibrillation: (9) Hyperlipidemia: (10) Iron deficiency anemia: (11) Insomnia: (12) Gastroesophageal reflux disease: (13) Benign prostate hyperplasia: PLAN: 81 year old male with below past medical history hospitalized for sepsis secondary to left lower extremity abscess requiring surgical incision and drainage, complicated by ESBL E. Coli urinary tract infection, admitted to TCU with debility, here for rehabilitation, strengthening, wound care, intravenous antibiotics, prior to discharge home with in [place], [place]. * Debility - PT/OT. * Pain - Tylenol 1000mg q6h prn pain (1-5), Oxycodone 5mg q4h prn pain (6-10). * Bowel - Miralax 17gm daily, Senna/colace 1 tablet bid. * Adult immunization - Administer prevnar 13, pneumovax 23, fluzone, covid19 vaccine as appropriate. * DVT prophylaxis - Not necessary, on Eliquis. * Herpes Zoster prophylaxis - Acyclovir 400mg bid. * Shortness of breath - Albuterol 2.5mg neb q4h prn. * Atrial fibrillation - Eliquis 5mg bid. * Vitamin C deficiency - Vitamin C 1000mg daily. * Hyperlipidemia - Atorvastatin 20mg qhs, Zetia 10mg daily. * Nutrition - Ensure compact 118ml po tidcm, Hugo 1 packet bid, MVI daily. * Iron deficiency anemia - Ferrex 150mg daily. * Insomnia - Melatonin 5mg qhs. * Skin irritation - Calmoseptine topical bid, Eucerin topical daily. * Left lower extremity abscess - Meropenem 1gm iv q8h thru 10/04/2021. * Orthostatic hypotension - Midodrine 10mg tidcm. * GERD - Pantoprazole 40mg bid. * BPH - Tamsulosin 0.4mg daily.
[2021-09-29] MEDS: oxyCODONE 5 MG Tablet PO (22:10)
[2021-09-29] MEDS: MELATONIN 10 MG TABLET 5 MG PO (22:10)
[2021-09-29] MEDS: Menthol/Lanolin/Calamine/Znox 113 GM Tube 1 APPLIC TOPICAL (22:11)
[2021-09-29] MEDS: Atorvastatin Calcium 20 MG Tablet PO (22:11)
[2021-09-29] MEDS: 0.9% Saline Lock 10 ML Syringe IV (22:17)
[2021-09-30] MEDS: Pantoprazole Sodium 40 MG Tablet PO ×2 (05:39→17:18)
[2021-09-30] MEDS: Ezetimibe 10 MG Tablet PO (05:39)
[2021-09-30] MEDS: Acyclovir 200 MG Capsule 400 MG PO ×2 (05:39→17:18)
[2021-09-30] MEDS: Tamsulosin HCl 0.4 MG Capsule PO (05:39)
[2021-09-30] MEDS: Iron Polysaccharide Complex 150 MG CAPSULE PO (05:39)
[2021-09-30] MEDS: Polyethylene Glycol 3350 17 GM PACKET PO (05:39)
[2021-09-30] MEDS: Senna/Docusate Sodium 1 Tablet PO (05:39)
[2021-09-30] MEDS: APIXABAN 5 MG TABLET PO ×2 (05:39→17:18)
[2021-09-30] MEDS: Menthol/Lanolin/Calamine/Znox 113 GM Tube 1 APPLIC TOPICAL ×2 (05:40→17:17)
[2021-09-30 05:47] VITALS: BP 105/73; PULSE 66
[2021-09-30 05:55] LABS: Absolute Lymphocyte Count 2.15 X10^3/uL (0.83-4.51); Absolute Neutrophil Count 4.4 X10^3/uL (2.0-7.7); Basophil# 0.05 X10^3/uL; Basophil% 0.6 % (0-1); Eosinophil# 0.21 X10^3/uL; Eosinophils% 2.7 % (0-5); Hematocrit 27.6 % (40-54); Hemoglobin 8.4 g/dL (13.0-16.5); Lymphocyte # 2.15 X10^3/ul (0.83-4.51); Lymphocyte % 27.5 % (19-41); Mean Corp Hgb Conc 30.4 g/dL (32-36); Mean Corpuscular Volume 95.2 fL (80-94); Mean Platelet Vol. 9.8 fl (6.2-12.0); Monocyte% 11.5 % (0-10); NRBC Flagged by Analyzer 0 % (0-5); Neutrophil # 4.41 X10^3/uL (2.7-7.7); Neutrophil % 56.4 % (47-70); Platelet Count 318 K/mm3 (150-450); RBC Distribution Width CV 14.7 % (11.6-14.6); RBC Distribution Width SD 50.7 fl (35.1-43.9); White Blood Count 7.8 K/mm3 (4.4-11.0)
[2021-09-30 06:40] LABS: Anion Gap 2 (5-15); BUN 22 mg/dL (7-18); BUN/Creat Ratio 39.2 RATIO (10-20); Calcium,Total 7.6 mg/dL (8.5-10.1); Chloride 105 mmol/L (98-107); Creatinine, Serum 0.56 mg/dL (0.70-1.30); EST Glomerular Filtration Rate 149 mL/min (>60); Est Glom Filt Rate - Afr Amer 180 mL/min (>60); Estimated Creatinine Clearance 55.72 ml/min; Glucose 93 mg/dL (74-106); Potassium 4.1 mmol/L (3.5-5.1); Sodium Level 138 mmol/L (136-145)
[2021-09-30] MEDS: Multivitamins,Therapeutic Tablet 1 TABLET PO (08:00)
[2021-09-30] MEDS: Midodrine HCl 5 MG Tablet 10 MG PO ×3 (08:00→17:17)
[2021-09-30] MEDS: Juven (unflavored) Packet 1 PACKET PO ×2 (08:00→17:17)
[2021-09-30] MEDS: Ascorbic Acid 500 MG Tablet 1000 MG PO (08:00)
[2021-09-30 08:03] VITALS: BP 116/59; PULSE 78
[2021-09-30 10:00] VITALS: PULSE 72; RESP 18; O2SAT 98
--- NOTE | 2021-09-30 10:36 | PCM.PN.ID ---
Physical Exam Narrative Feeling better, pain controlled, no fever, no n/v/d. Const alert and no apparent distress General Appearance: cooperative Resp normal air movement and clear to auscultation bilaterally Cardio regular rate and regular rhythm GI soft to palpation, non-tender and non-distended Skin Skin Narrative: wound vac in place ID ID: Route of nutrition/ use of supplements: [] Nutritional Intake: [] IV Site: [] Branch Catheter: [] Assessment & Plan Assessment/Plan (1) Abscess of left lower extremity: PLAN: LLE abscess s/p I&D by Dr. Oseguera on 09/26/21. Surg cx neg. Had esbl ecoli in urine but doubt true infection. Complete course of rose marie on 10/03/21. Will follow as needed, please call with any new issues
[2021-09-30] MEDS: Tuberculin,Purif.prot.deriv. 50 TU/ML Vial 0.1 ML ID (12:28)
[2021-09-30 16:57] VITALS: BP 115/52; PULSE 69; RESP 16; TEMP 37.1; O2SAT 94
[2021-09-30] MEDS: Acetaminophen 500 MG Tablet 1000 MG PO (22:54)
[2021-09-30] MEDS: Atorvastatin Calcium 20 MG Tablet PO (22:55)
[2021-09-30] MEDS: MELATONIN 10 MG TABLET 5 MG PO (22:55)
[2021-10-01] MEDS: 0.9% Saline Lock 10 ML Syringe IV ×3 (02:26→13:54)
[2021-10-01] MEDS: Polyethylene Glycol 3350 17 GM PACKET PO (06:49)
[2021-10-01] MEDS: APIXABAN 5 MG TABLET PO ×2 (06:50→18:11)
[2021-10-01] MEDS: Ezetimibe 10 MG Tablet PO (06:50)
[2021-10-01] MEDS: Pantoprazole Sodium 40 MG Tablet PO ×2 (06:50→18:12)
[2021-10-01] MEDS: Iron Polysaccharide Complex 150 MG CAPSULE PO (06:50)
[2021-10-01] MEDS: Senna/Docusate Sodium 1 Tablet PO (06:50)
[2021-10-01] MEDS: Tamsulosin HCl 0.4 MG Capsule PO (06:50)
[2021-10-01] MEDS: Acyclovir 200 MG Capsule 400 MG PO ×2 (06:50→18:11)
[2021-10-01] MEDS: Midodrine HCl 5 MG Tablet 10 MG PO ×3 (08:21→18:11)
[2021-10-01] MEDS: Multivitamins,Therapeutic Tablet 1 TABLET PO (08:21)
[2021-10-01] MEDS: Ascorbic Acid 500 MG Tablet 1000 MG PO (08:22)
[2021-10-01] MEDS: Juven (unflavored) Packet 1 PACKET PO ×2 (08:23→18:15)
[2021-10-01] MEDS: Acetaminophen 500 MG Tablet 1000 MG PO ×2 (09:47→22:03)
--- NOTE | 2021-10-01 11:40 | WOUNDNOTE ---
wound photo: left medial lower leg
--- NOTE | 2021-10-01 11:40 | WOUNDNOTE ---
wound photo: left lateral lower leg
[2021-10-01] MEDS: Menthol/Lanolin/Calamine/Znox 113 GM Tube 1 APPLIC TOPICAL ×2 (11:56→22:07)
[2021-10-01 14:04] VITALS: BP 112/58; PULSE 76; RESP 20; TEMP 37.1; O2SAT 98
--- NOTE | 2021-10-01 15:13 | CHAPLAIN ---
Type of Pastoral Visit ___ Initial Visit _x__ Follow-up Visit ___ On-call Visit ___ General Patient Visit ___ Spiritual Assessment ___ Family Conference ___ Bereavement ___ Rapid Response ___ Code Blue ___ Other (describe below) Pastoral Care Referral From _x__ Patient _x__ Family ___ Nurse ___ Physician ___ Final Inspector Balance Wheel ___ Animal Care Specialist ___ Other (describe below) Sacrament/Intervention _x__ Active listening ___ Anointing ___ Taoism ___ Bereavement ___ Communion ___ Christina exploration ___ _x__ Life review _x__ Prayer ___ Reconciliation ___ Sacrament of Sick _x__ Supportive presence ___ Wedding ___ Other (describe below) Pastoral Comments 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
[2021-10-01 21:50] VITALS: PULSE 53; RESP 16; O2SAT 98
[2021-10-01] MEDS: MELATONIN 10 MG TABLET 5 MG PO (22:04)
[2021-10-01] MEDS: Atorvastatin Calcium 20 MG Tablet PO (22:04)
[2021-10-02] MEDS: 0.9% Saline Lock 10 ML Syringe IV ×4 (06:32→21:28)
[2021-10-02] MEDS: Polyethylene Glycol 3350 17 GM PACKET PO (06:35)
[2021-10-02] MEDS: Acyclovir 200 MG Capsule 400 MG PO ×2 (06:35→17:13)
[2021-10-02] MEDS: Ezetimibe 10 MG Tablet PO (06:35)
[2021-10-02] MEDS: Senna/Docusate Sodium 1 Tablet PO (06:36)
[2021-10-02] MEDS: Menthol/Lanolin/Calamine/Znox 113 GM Tube 1 APPLIC TOPICAL ×2 (06:36→17:15)
[2021-10-02] MEDS: Pantoprazole Sodium 40 MG Tablet PO ×2 (06:36→17:13)
[2021-10-02] MEDS: Iron Polysaccharide Complex 150 MG CAPSULE PO (06:36)
[2021-10-02] MEDS: Tamsulosin HCl 0.4 MG Capsule PO (06:36)
[2021-10-02] MEDS: APIXABAN 5 MG TABLET PO ×2 (06:36→17:12)
--- NOTE | 2021-10-02 07:14 | NURSING ---
Unable to flush or get blood return from purple lumen on multiple attempts. Red port flushing fine with good blood return. Left message for Dr. Duenas about inability to flush purple port.
[2021-10-02] MEDS: Ascorbic Acid 500 MG Tablet 1000 MG PO (08:09)
[2021-10-02] MEDS: Juven (unflavored) Packet 1 PACKET PO ×2 (08:09→17:11)
[2021-10-02] MEDS: Midodrine HCl 5 MG Tablet 10 MG PO ×3 (08:09→17:12)
[2021-10-02] MEDS: Multivitamins,Therapeutic Tablet 1 TABLET PO (08:09)
[2021-10-02 08:12] VITALS: BP 127/68; PULSE 72; RESP 16; TEMP 36.6; O2SAT 96
[2021-10-02 12:19] VITALS: PULSE 73; RESP 16; O2SAT 97
--- NOTE | 2021-10-02 14:01 | PCM.PN.RX ---
Progress Note - Pharmacy Subjective: TCU ADMISSION Objective: Allergies aspirin Adverse Reaction (Verified 09/24/21 11:09) Hives Penicillins Adverse Reaction (Verified 09/24/21 11:09) PT UNSURE OF REACTION zolpidem [From Ambien] Adverse Reaction (Verified 09/24/21 11:09) Other Current Medications Generic Name Dose Route Start Last Admin Trade Name Freq PRN Reason Stop Dose Admin Acetaminophen 1,000 mg 09/29/21 20:44 10/01/21 22:03 Acetaminophen 500 Mg Tablet PO 1,000 mg Q6H PRN PRN Administration Pain Score 1-5 Acyclovir 400 mg 09/29/21 18:00 10/02/21 06:35 Acyclovir 200 Mg Capsule PO 400 mg BID SENTHIL Administration Albuterol Sulfate 2.5 mg 09/29/21 16:03 Albuterol 2.5 Mg/3 Ml Vial.Neb. INHALATION Q4H PRN Shortness of Breath/Wheezing Apixaban 5 mg 09/29/21 18:00 10/02/21 06:36 Apixaban 5 Mg Tablet PO 5 mg BID SENTHIL Administration Ascorbic Acid 1,000 mg 09/30/21 08:00 10/02/21 08:09 Ascorbic Acid 500 Mg Tablet PO 1,000 mg BREAKFAST SENTHIL Administration Atorvastatin Calcium 20 mg 09/29/21 22:00 10/01/21 22:04 Atorvastatin Calcium 20 Mg Tablet PO 20 mg QHS SENTHIL Administration Calamine/Phenol 1 applic 09/29/21 18:00 10/02/21 06:36 Menthol/Lanolin/Calamine/Znox 113 Gm Tube TOPICAL 1 applic BID SENTHIL Administration Protocol Ezetimibe 10 mg 09/30/21 06:00 10/02/21 06:35 Ezetimibe 10 Mg Tablet PO 10 mg DAILY SENTHIL Administration Heparin Sodium (Beef Lung) 50 units 09/29/21 16:16 Heparin Pf Lock 10 Units/Ml 50 Units/5 Ml Syringe IV UD PRN PICC Line Heparin Flush Sodium Chloride 250 mls @ 15 mls/hr 09/29/21 16:16 10/01/21 13:55 IV 15 mls/hr .[id number] PRN Administration Saline Flush Sodium Chloride 250 mls @ 15 mls/hr 09/29/21 16:16 IV .[id number] PRN Additional IVPB Infusion Meropenem 1 gm/ Sodium 100 mls @ 33 mls/hr 09/29/21 22:00 10/02/21 10:12 Chloride IV 10/04/21 01:01 Infused Q8 SENTHIL Infusion L-Arginine/L-Glutamine/Calcium HMB 1 packet 09/29/21 17:00 10/02/21 08:09 Hugo (Unflavored) Packet PO 1 packet BIDCM SENTHIL Administration Melatonin 5 mg 09/29/21 22:00 10/01/21 22:04 Melatonin 10 Mg Tablet PO 5 mg QHS SENTHIL Administration Midodrine 10 mg 09/29/21 17:45 10/02/21 12:33 Midodrine Hcl 5 Mg Tablet PO 10 mg TIDCM SENTHIL Administration Multi-Ingredient Cream 1 applic 09/30/21 06:00 10/02/21 06:37 Mineral Oil/Petrolatum,White Jar TOPICAL 1 applic DAILY SENTHIL Administration Multivitamins 1 tablet 09/30/21 08:00 10/02/21 08:09 Multivitamins,Therapeutic Tablet PO 1 tablet BREAKFAST SENTHIL Administration Nutritional Formula (Lactose Free) 118 ml 09/29/21 17:45 10/02/21 12:12 Ensure Compact 118 Ml Liquid PO 118 ml TIDCM SENTHIL Administration Oxycodone HCl 5 mg 09/29/21 16:03 09/29/21 22:10 Oxycodone 5 Mg Tablet PO 5 mg Q4H PRN Administration Pain (Scale Score 6-10) Pantoprazole Sodium 40 mg 09/29/21 18:00 10/02/21 06:36 Pantoprazole Sodium 40 Mg Tablet PO 40 mg BID SENTHIL Administration Polyethylene Glycol 17 gm 09/30/21 06:00 10/02/21 06:35 Polyethylene Glycol 3350 17 Gm Packet PO 17 gm DAILY SENTHIL Administration Polysaccharide Iron Complex 150 mg 09/30/21 06:00 10/02/21 06:36 Iron Polysaccharide Complex 150 Mg Capsule PO 150 mg DAILY SENTHIL Administration Senna/Docusate Sodium 1 tablet 09/30/21 06:00 10/02/21 06:36 Senna/Docusate Sodium 1 Tablet PO 1 tablet DAILY SENTHIL Administration Sodium Chloride 10 - 40 ml 09/29/21 16:16 10/02/21 06:32 0.9% Saline Lock 10 Ml Syringe IV 30 ml UD PRN Administration Open End PICC Flush Sodium Chloride 10 - 40 ml 09/29/21 16:16 0.9 % Nacl (Sterile) Posiflush 10 Ml IV UD PRN Port access or dressing change Tamsulosin HCl 0.4 mg 09/30/21 06:00 10/02/21 06:36 Tamsulosin Hcl 0.4 Mg Capsule PO 0.4 mg DAILY SENTHIL Administration Tuberculin PPD 0.1 ml 10/07/21 10:00 Tuberculin,Purif.Prot.Deriv. 50 Tu/Ml Vial ID 10/07/21 10:01 X1 ONE Problem List (Last Reviewed 10/02/21 @ 00:[address] Devin Oseguera MD) Abscess of left lower extremity (Acute) Cellulitis of left lower extremity (Acute) Benign prostate hyperplasia (Acute) Gastroesophageal reflux disease (Acute) Insomnia (Acute) Iron deficiency anemia (Acute) Hyperlipidemia (Acute) Atrial fibrillation (Acute) Autoimmune thrombocytopenia (Acute) Infection due to ESBL-producing Escherichia coli (Acute) Sepsis (Acute) Debility (Acute) Vital Signs Temp Pulse Resp BP Pulse Ox 98 F 73 16 127/68 H 97 10/02/21 08:12 10/02/21 12:19 10/02/21 12:19 10/02/21 08:12 10/02/21 12:19 Oxygen Delivery Method Room Air Weight: 65.8 kg Body Mass Index (BMI) 22.0 Sodium 138 mmol/L (136-145) 09/30/21 05:33 Potassium 4.1 mmol/L (3.5-5.1) 09/30/21 05:33 Chloride 105 mmol/L (98-107) 09/30/21 05:33 Carbon Dioxide 31.0 mmol/L (21.0-32.0) 09/30/21 05:33 Anion Gap 2 (5-15) L 09/30/21 05:33 BUN 22 mg/dL (7-18) H 09/30/21 05:33 Creatinine 0.56 mg/dL (0.70-1.30) L 09/30/21 05:33 Est GFR (MDRD) Af Amer 180 mL/min (>60) 09/30/21 05:33 Est GFR (MDRD) Non-Af 149 mL/min (>60) 09/30/21 05:33 BUN/Creatinine Ratio 39.2 RATIO (10-20) H 09/30/21 05:33 Glucose 93 mg/dL (74-106) 09/30/21 05:33 Assessment/Plan: 1. Pain: Tylenol 1000mg PO Q6h PRN Pain 1-5,Oxycodone 5mg PO Q4h PRN Pain 6-10. Please continue to monitor for S/S of increased/decreased pain, oversedation, PRN medication usage. 2. Left Lower extremity abscess: Merrem 1g IV Q8h thru 10/04/21. Please continue to monitor for resolution of infection, S/S of re-infection, culture data, renal function. *3. Atrial fibrillation: Eliquis 5mg PO BID. Please continue to monitor pt HR and rhythm. Not currently on any rate/rhythmic control agents. Please continue to monitor for S/S bleeding/bruising, SCr. 4. HLD: Lipitor 20mg PO QHS, Zetia 10mg PO Daily. Please continue to monitor lipid panel annually or sooner if clinically indicated. 5. Herpes Zoster Prophylaxis: Acyclovir 400mg PO BID. Please continue to monitor for virus reactivation, fatigue, and nausea. 6. Orthostatic Hypotension: Midodrine 10mg PO TIDCM. Please continue to monitor BP, improvement in symptoms. 7. BPH: Flomax 0.4mg PO Daily. Please continue to monitor for urinary retention, improvement in symptoms. 8. GERD: Protonix 40mg PO BID. Please continue to monitor for GERD Flare-ups. May also consider non-pharmacologic treatment to reduce GERD symptoms. 9. SOB: Albuterol nebs Q4h PRN. Please continue to monitor PRN medication usage, HR, improvement in symptoms. 10. Insomnia: Melatonin 5mg PO QHS. Please continue to monitor medication effectiveness. If ineffective, consider administering medication at least 2 hours prior to bedtime to allow medication to take effect. 11. General Wellness: Ascorbic Acid 1000mg PO Daily, MVI 1 tab PO Daily, Ferrex 150mg PO Daily. Please continue to monitor as clinically appropriate. Psychotropic Medications: None Unnecessary Medications: None Bowel Regimen: Miralax 17g PO Daily, Senna/Docusate 1 tab PO Daily. Please continue to monitor for increased/decreased constipation and/or diarrhea. Date of Note:: 10/02/21
[2021-10-02] MEDS: MELATONIN 10 MG TABLET 5 MG PO (21:34)
[2021-10-02] MEDS: Atorvastatin Calcium 20 MG Tablet PO (21:34)
[2021-10-02] MEDS: Acetaminophen 500 MG Tablet 1000 MG PO (23:24)
[2021-10-03] MEDS: 0.9% Saline Lock 10 ML Syringe IV ×7 (05:26→21:18)
[2021-10-03] MEDS: Iron Polysaccharide Complex 150 MG CAPSULE PO (05:32)
[2021-10-03] MEDS: Acyclovir 200 MG Capsule 400 MG PO ×2 (05:32→17:43)
[2021-10-03] MEDS: Tamsulosin HCl 0.4 MG Capsule PO (05:32)
[2021-10-03] MEDS: Ezetimibe 10 MG Tablet PO (05:32)
[2021-10-03] MEDS: Pantoprazole Sodium 40 MG Tablet PO ×2 (05:33→17:43)
[2021-10-03] MEDS: Senna/Docusate Sodium 1 Tablet PO (05:33)
[2021-10-03] MEDS: APIXABAN 5 MG TABLET PO ×2 (05:33→17:43)
[2021-10-03] MEDS: Menthol/Lanolin/Calamine/Znox 113 GM Tube 1 APPLIC TOPICAL ×2 (05:34→21:22)
[2021-10-03] MEDS: Juven (unflavored) Packet 1 PACKET PO ×2 (08:18→17:43)
[2021-10-03] MEDS: Multivitamins,Therapeutic Tablet 1 TABLET PO (08:19)
[2021-10-03] MEDS: Ascorbic Acid 500 MG Tablet 1000 MG PO (08:19)
[2021-10-03] MEDS: Midodrine HCl 5 MG Tablet 10 MG PO ×3 (08:19→17:43)
[2021-10-03 12:02] VITALS: BP 116/59; PULSE 70
--- NOTE | 2021-10-03 12:30 | NURSING ---
Both lines to PICC line unable to flush or get blood return. Dr Duenas notified and orders to give cath cierra x2 at this time. Orders entered.
[2021-10-03] MEDS: Alteplase 2 MG/2 ML Vial IV ×2 (13:02→13:52)
--- NOTE | 2021-10-03 15:21 | NURSING ---
Cath Rubens Administered to both picc Lumens removed 5 ml of blood from both lumens and discarded syringe then flushed both lumens with 10 ml normal saline.
[2021-10-03 15:22] VITALS: BP 115/60; PULSE 81; RESP 20; TEMP 37.2; O2SAT 98
[2021-10-03 21:22] VITALS: PULSE 68; RESP 16; O2SAT 97
[2021-10-03] MEDS: oxyCODONE 5 MG Tablet PO (21:26)
[2021-10-03] MEDS: MELATONIN 10 MG TABLET 5 MG PO (21:26)
[2021-10-03] MEDS: Atorvastatin Calcium 20 MG Tablet PO (21:28)
[2021-10-04] MEDS: Acyclovir 200 MG Capsule 400 MG PO ×2 (06:00→18:00)
[2021-10-04] MEDS: Tamsulosin HCl 0.4 MG Capsule PO (06:00)
[2021-10-04] MEDS: APIXABAN 5 MG TABLET PO ×2 (06:00→18:00)
[2021-10-04] MEDS: Ezetimibe 10 MG Tablet PO (06:00)
[2021-10-04] MEDS: Iron Polysaccharide Complex 150 MG CAPSULE PO (06:00)
[2021-10-04] MEDS: Menthol/Lanolin/Calamine/Znox 113 GM Tube 1 APPLIC TOPICAL (06:00)
[2021-10-04] MEDS: Pantoprazole Sodium 40 MG Tablet PO ×2 (06:00→18:00)
[2021-10-04] MEDS: Midodrine HCl 5 MG Tablet 10 MG PO ×3 (07:45→17:45)
[2021-10-04] MEDS: Juven (unflavored) Packet 1 PACKET PO ×2 (08:00→17:00)
[2021-10-04] MEDS: Ascorbic Acid 500 MG Tablet 1000 MG PO (08:00)
[2021-10-04] MEDS: Multivitamins,Therapeutic Tablet 1 TABLET PO (08:00)
[2021-10-04] MEDS: 0.9% Saline Lock 10 ML Syringe IV (15:00)
[2021-10-04] MEDS: oxyCODONE 5 MG Tablet PO (21:10)
[2021-10-04] MEDS: Atorvastatin Calcium 20 MG Tablet PO (22:00)
[2021-10-04] MEDS: MELATONIN 10 MG TABLET 5 MG PO (22:00)
[2021-10-05] MEDS: APIXABAN 5 MG TABLET PO ×2 (05:36→17:03)
[2021-10-05] MEDS: Pantoprazole Sodium 40 MG Tablet PO ×2 (05:37→17:04)
[2021-10-05] MEDS: Acyclovir 200 MG Capsule 400 MG PO ×2 (05:37→17:04)
[2021-10-05] MEDS: Iron Polysaccharide Complex 150 MG CAPSULE PO (05:38)
[2021-10-05] MEDS: Tamsulosin HCl 0.4 MG Capsule PO (05:39)
[2021-10-05] MEDS: Ezetimibe 10 MG Tablet PO (05:40)
[2021-10-05] MEDS: Ascorbic Acid 500 MG Tablet 1000 MG PO (08:09)
[2021-10-05] MEDS: Juven (unflavored) Packet 1 PACKET PO ×2 (08:09→17:02)
[2021-10-05] MEDS: Midodrine HCl 5 MG Tablet 10 MG PO ×3 (08:09→17:03)
[2021-10-05] MEDS: Multivitamins,Therapeutic Tablet 1 TABLET PO (08:09)
[2021-10-05 08:12] VITALS: BP 128/59; PULSE 82
[2021-10-05] MEDS: Menthol/Lanolin/Calamine/Znox 113 GM Tube 1 APPLIC TOPICAL ×2 (11:27→17:03)
[2021-10-05] MEDS: 0.9% Saline Lock 10 ML Syringe IV (12:21)
[2021-10-05 12:22] VITALS: BP 100/52; PULSE 68; RESP 18
[2021-10-05 14:58] VITALS: BP 109/56; PULSE 63; RESP 16; TEMP 36.5; O2SAT 93
--- NOTE | 2021-10-05 20:35 | NURSING ---
Wound vac with a blockage alert. Leak noted around track pad. Attempted to seal leak w/ several pieces of drape. Pressure not maintained over 100 mmHg. Wound vac turned off. Alcohols swabs used to remove drape. Saline used to gently remove black foam. One large piece bridges from left lateral lower leg to left posterior lower leg. One piece of adaptic removed from posterior wound bed. No adaptic noted to lateral wound. No active drainage noted. Wounds gently irrigated w/ saline using a 10ml needleless syringe. Small amount of serosanguineous drainage noted to posterior wound w/ cleansing. Skin prep applied to periwound skin and skin between wounds. Drape applied to wound edges to both wounds and skin between wounds. One large piece of adaptic applied to wound bed to posterior wound. One large piece of spiral black foam applied to lateral wound extending up to posterior leg wound. Secured w/ drape. Quarter size hold cut through drape over posterior wound. Track pad applied. Connected to wound vac at 150 mmHg continuous suction. Pt tolerated well. Wound bed to posterior wound w/ 100% granulation tissue. Lateral lower leg wound w/ granulation tissue and a small, fibrous tissue that may be a tendon or fascia. Wound edges without redness, warmth, or swelling. Canister approximately 1/4 full w/ serosanguineous drainage.
[2021-10-05] MEDS: MELATONIN 10 MG TABLET 5 MG PO (21:30)
[2021-10-05] MEDS: Atorvastatin Calcium 20 MG Tablet PO (21:30)
[2021-10-06] MEDS: Polyethylene Glycol 3350 17 GM PACKET PO (06:29)
[2021-10-06] MEDS: APIXABAN 5 MG TABLET PO ×2 (06:30→17:22)
[2021-10-06] MEDS: Pantoprazole Sodium 40 MG Tablet PO ×2 (06:31→17:22)
[2021-10-06] MEDS: Acyclovir 200 MG Capsule 400 MG PO ×2 (06:31→17:22)
[2021-10-06] MEDS: Senna/Docusate Sodium 1 Tablet PO (06:32)
[2021-10-06] MEDS: Ezetimibe 10 MG Tablet PO (06:32)
[2021-10-06] MEDS: Tamsulosin HCl 0.4 MG Capsule PO (06:33)
[2021-10-06] MEDS: Iron Polysaccharide Complex 150 MG CAPSULE PO (06:33)
[2021-10-06] MEDS: Menthol/Lanolin/Calamine/Znox 113 GM Tube 1 APPLIC TOPICAL ×2 (06:41→17:22)
[2021-10-06] MEDS: FLUCONAZOLE 150 MG TABLET PO (09:01)
[2021-10-06] MEDS: Clotrimazole/Betamethasone 1 Tube 1 APPLIC TOPICAL ×2 (09:01→17:22)
[2021-10-06] MEDS: Ascorbic Acid 500 MG Tablet 1000 MG PO (09:03)
[2021-10-06] MEDS: Juven (unflavored) Packet 1 PACKET PO ×2 (09:04→17:22)
[2021-10-06] MEDS: Midodrine HCl 5 MG Tablet 10 MG PO ×3 (09:04→17:22)
[2021-10-06] MEDS: Multivitamins,Therapeutic Tablet 1 TABLET PO (09:04)
[2021-10-06 10:00] VITALS: PULSE 79; RESP 16; O2SAT 99
--- NOTE | 2021-10-06 10:18 | NURSING ---
dr Duenas assessed Groin d/t redness and irriation, new order fluconazole & lotrisone cream.
[2021-10-06 17:02] VITALS: BP 107/54; PULSE 64; RESP 16; TEMP 37.1; O2SAT 98
[2021-10-06] MEDS: 0.9% Saline Lock 10 ML Syringe IV (18:03)
[2021-10-06] MEDS: MELATONIN 10 MG TABLET 5 MG PO (21:00)
[2021-10-06] MEDS: Atorvastatin Calcium 20 MG Tablet PO (21:01)
[2021-10-07 05:55] LABS: Absolute Lymphocyte Count 2.49 X10^3/uL (0.83-4.51); Absolute Neutrophil Count 4.6 X10^3/uL (2.0-7.7); Basophil# 0.08 X10^3/uL; Basophil% 0.9 % (0-1); Eosinophils% 4.5 % (0-5); Hemoglobin 8.5 g/dL (13.0-16.5); Lymphocyte # 2.49 X10^3/ul (0.83-4.51); Lymphocyte % 28.1 % (19-41); Mean Corp Hgb Conc 30.4 g/dL (32-36); Mean Corpuscular Hgb 28.4 pg (27.0-32.0); Mean Corpuscular Volume 93.6 fL (80-94); Mean Platelet Vol. 10.4 fl (6.2-12.0); Monocyte# 1.18 X10^3/uL; Monocyte% 13.3 % (0-10); NRBC Flagged by Analyzer 0 % (0-5); Neutrophil # 4.64 X10^3/uL (2.7-7.7); Neutrophil % 52.5 % (47-70); Platelet Count 218 K/mm3 (150-450); RBC Distribution Width SD 51.7 fl (35.1-43.9); Red Blood Count 2.99 M/mm3 (4.6-6.2); White Blood Count 8.9 K/mm3 (4.4-11.0)
[2021-10-07] MEDS: Acyclovir 200 MG Capsule 400 MG PO ×2 (06:13→16:51)
[2021-10-07] MEDS: Tamsulosin HCl 0.4 MG Capsule PO (06:13)
[2021-10-07] MEDS: Polyethylene Glycol 3350 17 GM PACKET PO (06:13)
[2021-10-07] MEDS: Pantoprazole Sodium 40 MG Tablet PO ×2 (06:13→16:52)
[2021-10-07] MEDS: Iron Polysaccharide Complex 150 MG CAPSULE PO (06:13)
[2021-10-07] MEDS: Ezetimibe 10 MG Tablet PO (06:13)
[2021-10-07] MEDS: Senna/Docusate Sodium 1 Tablet PO (06:13)
[2021-10-07] MEDS: APIXABAN 5 MG TABLET PO ×2 (06:14→16:52)
[2021-10-07] MEDS: Clotrimazole/Betamethasone 1 Tube 1 APPLIC TOPICAL ×2 (06:15→16:52)
[2021-10-07] MEDS: Menthol/Lanolin/Calamine/Znox 113 GM Tube 1 APPLIC TOPICAL ×2 (06:15→16:52)
[2021-10-07 06:38] LABS: Anion Gap 4 (5-15); BUN 26 mg/dL (7-18); BUN/Creat Ratio 39.3 RATIO (10-20); Calcium,Total 8.1 mg/dL (8.5-10.1); Chloride 105 mmol/L (98-107); Creatinine, Serum 0.66 mg/dL (0.70-1.30); EST Glomerular Filtration Rate 123 mL/min (>60); Est Glom Filt Rate - Afr Amer 149 mL/min (>60); Estimated Creatinine Clearance 55.75 ml/min; Glucose 97 mg/dL (74-106); Potassium 4.5 mmol/L (3.5-5.1); Sodium Level 136 mmol/L (136-145)
[2021-10-07] MEDS: Juven (unflavored) Packet 1 PACKET PO ×2 (08:01→16:51)
[2021-10-07] MEDS: Ascorbic Acid 500 MG Tablet 1000 MG PO (08:01)
[2021-10-07] MEDS: Midodrine HCl 5 MG Tablet 10 MG PO ×3 (08:01→16:52)
[2021-10-07] MEDS: Multivitamins,Therapeutic Tablet 1 TABLET PO (08:01)
[2021-10-07 08:06] VITALS: BP 130/70; PULSE 63
[2021-10-07] MEDS: Tuberculin,Purif.prot.deriv. 50 TU/ML Vial 0.1 ML ID (11:55)
[2021-10-07 11:56] VITALS: BP 116/59; PULSE 69
--- NOTE | 2021-10-07 12:55 | NURSING ---
Dr. Oseguera in to see pt, accessed the spot on his left anterior lower leg. Dr. Oseguera stated he will continue to monitor the site.
[2021-10-07 15:03] VITALS: BP 130/86; PULSE 82; RESP 16; TEMP 36.8; O2SAT 98
--- NOTE | 2021-10-07 15:20 | CASEMGMT ---
Social Work Spoke with pt about DC plans. Pt has been researching [facility] and wound care centers in [place], [place] to return. He provided this worker with contact information to make referrals. Unknown DC date yet. Must get clearance to fly with wound vac and have IDT agree on DC. Referrals made to [facility]. SW to continue to follow. EKATERINA Mendoza SENIOR CREDIT OFFICER
--- NOTE | 2021-10-07 16:15 | NURSING ---
Resident and son, Torsten, notified of staff member testing positive for COVID>
--- NOTE | 2021-10-07 16:21 | CHAPLAIN ---
Type of Pastoral Visit ___ Initial Visit _x__ Follow-up Visit ___ On-call Visit ___ General Patient Visit ___ Spiritual Assessment ___ Family Conference ___ Bereavement ___ Rapid Response ___ Code Blue ___ Other (describe below) Pastoral Care Referral From _x__ Patient ___ Family ___ Nurse ___ Physician ___ Cooler Supervisor ___ Meter Repairer Helper ___ Other (describe below) Sacrament/Intervention _x__ Active listening ___ Anointing ___ Mormonism ___ Bereavement ___ Communion ___ Christina exploration ___ ___ Life review _x__ Prayer ___ Reconciliation ___ Sacrament of Sick _x__ Supportive presence ___ Wedding ___ Other (describe below) Pastoral Comments patient is encouraged by progress, is making requests for a soon discharge, and hopes to return home to [place] very soon; prayer and presence greatly welcomed
[2021-10-07] MEDS: MELATONIN 10 MG TABLET 5 MG PO (20:48)
[2021-10-07] MEDS: Atorvastatin Calcium 20 MG Tablet PO (20:48)
--- NOTE | 2021-10-07 23:05 | PCM.PN.SRG ---
Subjective Subjective Postop #11 Patient had surgery on 09/26/21 where he underwent surgical preparation left posterior leg with incision and drainage and excisional debridement abscess (153 cm2). He was sent to TCU for further strengthening and ambulation. At the time of his admission to TCU, he was on Meropenem and he finished them on 10/03/21. His VAC is in place. Patient has some concerns about a soft area on the anterior aspect left leg. Objective Data Objective Data Vital Signs: Vital Signs Temp Pulse Resp BP Pulse Ox 98.3 F 82 16 130/86 H 98 10/07/21 15:03 10/07/21 15:03 10/07/21 15:03 10/07/21 15:03 10/07/21 15:03 Oxygen Delivery Method Room Air Weight: 143 lb 1.6 oz Body Mass Index (BMI) 22.0 Intake & Output: Intake and Output for Last 24 Hours 10/05/21 10/06/21 10/07/21 23:59 23:59 23:59 Intake Total 720 / 720 480 / 480 720 / 720 Output Total 300 / 300 525 / 525 Balance 420 / 420 -45 / -45 720 / 720 Lab / Micro Data Attestation: I reviewed the patient's lab results. Result Diagrams: 10/14/21 05:19 10/14/21 05:19 Labs: Laboratory Results - last 24 hr 10/07/21 05:26: WBC 8.9, RBC 2.99 L, Hgb 8.5 L, Hct 28.0 L, MCV 93.6, MCH 28.4, MCHC 30.4 L, RDW Std Deviation 51.7 H, RDW Coeff of Duarte 15.0 H, Plt Count 218, MPV 10.4, Immature Gran % (Auto) 0.700, Neut % (Auto) 52.5, Lymph % (Auto) 28.1, Tyler % (Auto) 13.3 H, Eos % (Auto) 4.5, Baso % (Auto) 0.9, Absolute Neuts (auto) 4.6, Absolute Lymphs (auto) 2.49, Nucleated RBC % 0 10/07/21 05:26: Sodium 136, Potassium 4.5, Chloride 105, Carbon Dioxide 27.0, Anion Gap 4 L, BUN 26 H, Creatinine 0.66 L, Estim Creat Clear Calc 55.75, Est GFR (MDRD) Af Amer 149, Est GFR (MDRD) Non-Af 123, BUN/Creatinine Ratio 39.3 H, Glucose 97, Calcium 8.1 L Micro: Microbiology 10/02/21 14:05 Nasal Secretion SARS-CoV-2 Antigen (Rapid) - Final Physical Exam Narrative General - Alert and Oriented HEENT - PERRL. EOMI. Abdomen - Soft and nondistended. Extremities - both wounds left leg are stable and showing signs of healing with good granulation tissue. He is tolerating the VAC. Neuro - CN II-XII grossly intact. Psych - Normal mood and affect. Assessment & Plan Assessment/Plan (1) Open wound of left lower leg with complication: (2) Abscess of left lower extremity: (3) Cellulitis of left lower extremity: PLAN: Patient's wounds left leg continue to improve. Continue the VAC. He is doing pretty well with ambulation and strengthening. He finished the Meropenem on 10/03/21. Good granulation tissue noted on the left leg wounds which makes him ready for operative debridement and skin grafting. He states he is not ready for a skin graft at this time. Since arrangements are being made for him to go home to [place], [place], the patient can decide on a skin graft when he is ready that can be performed in [place]. We also helped make an appointment for him at a local [facility] In [place] as well. Encourage nutritional supplementation with protein to help the healing process.
[2021-10-08] MEDS: oxyCODONE 5 MG Tablet PO (00:42)
[2021-10-08] MEDS: Senna/Docusate Sodium 1 Tablet PO (05:59)
[2021-10-08] MEDS: Tamsulosin HCl 0.4 MG Capsule PO (05:59)
[2021-10-08] MEDS: Acyclovir 200 MG Capsule 400 MG PO ×2 (05:59→17:29)
[2021-10-08] MEDS: APIXABAN 5 MG TABLET PO ×2 (05:59→17:29)
[2021-10-08] MEDS: Iron Polysaccharide Complex 150 MG CAPSULE PO (05:59)
[2021-10-08] MEDS: Polyethylene Glycol 3350 17 GM PACKET PO (05:59)
[2021-10-08] MEDS: Ezetimibe 10 MG Tablet PO (05:59)
[2021-10-08] MEDS: Pantoprazole Sodium 40 MG Tablet PO ×2 (05:59→17:29)
[2021-10-08] MEDS: Menthol/Lanolin/Calamine/Znox 113 GM Tube 1 APPLIC TOPICAL ×2 (06:02→17:27)
[2021-10-08] MEDS: Clotrimazole/Betamethasone 1 Tube 1 APPLIC TOPICAL ×2 (06:07→17:28)
--- NOTE | 2021-10-08 07:18 | NURSING ---
pt wound vac had a clot at the center suction. dressing taken off and new dressing applied/
[2021-10-08] MEDS: Midodrine HCl 5 MG Tablet 10 MG PO ×3 (07:55→17:29)
[2021-10-08] MEDS: Multivitamins,Therapeutic Tablet 1 TABLET PO (07:55)
[2021-10-08] MEDS: Ascorbic Acid 500 MG Tablet 1000 MG PO (07:55)
[2021-10-08] MEDS: Juven (unflavored) Packet 1 PACKET PO ×2 (07:55→17:27)
[2021-10-08 07:56] VITALS: BP 125/62; PULSE 64
--- NOTE | 2021-10-08 11:03 | NURSING ---
Contacted Dr. Oseguera's office, spoke with Abigail, asked if pt is allowed to take a shower and if pt is allowed to discharge home and fly to [place].
--- NOTE | 2021-10-08 11:06 | CASEMGMT ---
Social Work IDT met with patient and son for care plan meeting. Discussed patient's progress in PT/OT and nursing. Pt progressing well. Pt has wound vac and continued wound care. Explained Medicare benefit. Encouraged to contact secondary insurance to ensure copay coverage. Pt readmitted on day . SW working with pt on getting wound care and HHC set up in [place] to return. has returned to [place] home. Pt will DC home with wound vac. Notified wound nurse and to see when it would be feasible to DC home. Waiting for Dr. keller to fly also. Nursing aware. Pt will need hemiwalker. SW to contact [facility] to see if that is possible to have one to DC to another state or if pt would need to purchase out of pocket. Once all needs are in place, pt to DC home. SW to continue to follow. Cherelle Goldman, COMMERCIAL CONSTRUCTION SUPERINTENDENT ECONOMIC HISTORY TEACHER
--- NOTE | 2021-10-08 11:37 | NURSING ---
Spoke with Abigail from Dr. Oseguera's office, per Dr. Oseguera, pt is allowed to shower on the day of wound vac change. Also, pt is allowed to discharge home to [place] by plane, but will need to have the wound vac d/c'd and daily dressing applied until he can f/u with a in [facility] to restart the wound vac order.
[2021-10-08 13:29] VITALS: BP 112/56; PULSE 74; RESP 15; TEMP 37.2; O2SAT 97
--- NOTE | 2021-10-08 14:52 | CASEMGMT ---
Social Work Followed up with [facility]. They are unable to accept pt due to staffing. Searched Medicare.gov for 5 star ratings in [facility] companies. Placed several calls. [facility] will review the referral and confirmed they can change the wound vac 3x/wk and collaborate with pts care [facility]. Spoke with Sulma wound nurse via email and pt's home vac is approved can there is no preference from her end for DC. Spoke with pt and updated on above. Pt agreeable to refer to [facility]. Referral made. Pt also has been looking at flights and cannot get a flight until 10/18, so requesting to DC 10/17. IDT agreeable. Plan: DC initially to son's house 10/17, then officially home to [place], [place], [facility] PT/OT/SN/PEREZ/ADA, sonya Goldman, FIELD SERVICE REP PURIFICATION SUPERVISOR
[2021-10-08] MEDS: 0.9% Saline Lock 10 ML Syringe IV (17:33)
--- NOTE | 2021-10-08 20:11 | DS.PCM_ITS ---
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 Routine Comment: Reason for Consult:: wound vac LLE 09/29/21 16:38 Consult: Infectious Disease Routine Consulting Provider: Alexandr Beltran Reason for Consult: LLE deep tissue infection EMERGENT Consult: No MD Notified: Yes Date Notified: 09/29/21 Time Notified: 16:39 Method of Notification: Verbal Consult: Plastic Surgery Routine Consulting Provider: Devin Oseguera Reason for Consult: Deep tissue infection LLE EMERGENT Consult: No Notified: Yes Date Notified: 09/29/21 Time Notified: 16:39 Method of Notification: Verbal 09/29/21 20:44 Consult: Infectious Disease Routine Consulting Provider: Alexandr Beltran Reason for Consult: Left lower extremity abcess/ESBL E. Coli uti. EMERGENT Consult: No Notified: Yes Date Notified: 09/29/21 Time Notified: 20:44 Method of Notification: Verbal Reason For Visit: DEEP TISSUE INFECTION LLE Diagnosis Discharge Diagnosis (1) Abscess of left lower extremity: Status: Acute Code(s): L02.416 - Cutaneous abscess of left lower limb Medications at Discharge Home Medications Eliquis 5 mg PO BID 09/16/21 ascorbic acid (vitamin C) [Vitamin C] 1,000 mg PO DAILY 09/16/21 ezetimibe [Zetia] 10 mg PO DAILY 09/16/21 pantoprazole 40 mg PO BID 09/16/21 polyethylene glycol 3350 [Miralax] 17 g PO DAILY 09/16/21 tamsulosin [Flomax] 0.4 mg PO DAILY 09/16/21 acyclovir 400 mg PO BID 09/24/21 atorvastatin 20 mg PO QHS 09/24/21 melatonin 5 mg PO QHS 09/24/21 menthol-zinc oxide [Calmoseptine] 1 applic TOPICAL BID 09/24/21 multivitamin 1 tab PO BREAKFAST 09/24/21 sennosides-docusate sodium [Senokot-S] 1 tab-cap PO DAILY 09/24/21 acetaminophen 1,000 mg PO Q6H PRN PRN #0 tab 10/08/21 [id number] [Hugo (with collagen)] 1 packet PO BIDCM 30 Days #60 ea 10/08/21 midodrine 10 mg PO TIDCM 30 Days #180 tab 10/08/21 oxycodone 5 mg PO Q4H PRN 7 Days #42 tab 10/08/21 polysaccharide iron complex [Ferrex 150] 150 mg PO DAILY 30 Days #30 cap 10/08/21 Hospital Course Operations - (Surgical incision and drainage left lower extremity abscess.) Procedures None Summary of Care Provided Minutes Spent on Discharge: 35 Hospital Course: 81 year old male with below past medical history hospitalized for sepsis secondary to left lower extremity abscess requiring surgical incision and drainage, complicated by ESBL E. Coli urinary tract infection, admitted to TCU with debility, here for rehabilitation, strengthening, wound care, intravenous antibiotics, prior to discharge home with in [place], [place]. Discharge initially to [facility] 10/17/2021, then officially home to [place], [place], [facility] PT/OT/SN/PEREZ/, [facility]. Physical Exam Const alert and oriented x3 General Appearance: cooperative HEENT normocephalic Eyes PERRL and EOMs intact bilaterally Neck supple, no JVD and no carotid bruits Resp normal respiratory effort, normal air movement and clear to auscultation bilat erally Cardio regular rate and regular rhythm GI normal to inspection, nondistended, normoactive bowel sounds, non-tender and non-distended Extremity normal capillary refill Extremity Narrative: Left lower extremity medial wound, left lateral malleolus wound. General Extremity: Negative for edema Skin no rashes or lesions noted General Skin Exam: no breakdown Psych affect normal Appearance: appropriate Weight / BMI Weight Weight: 64.909 kg Body Mass Index (BMI) 22.0 ABG / Lab / Microbiology Data Result Diagrams: 10/07/21 05:26 10/07/21 05:26 Microbiology: Microbiology 10/02/21 14:05 Nasal Secretion SARS-CoV-2 Antigen (Rapid) - Final D/C Instructions Discharge Diet: No restrictions Discharge Activity: Return to Normal Activity, May Shower and Use Walker Weight Bearing Status: Weight bearing as tolerated Call your doctor if you observe: Fever of 101 or Higher, Inability to urinate, Inability to have a bowel movement, Shortness of breath, Dizziness, Fainting spells, Swelling in the ankles, Chest pain and Uncontrolled pain Additional Instructions: Discharge initially to [facility] 10/17/2021, then officially home to [place], [place], Home Health Care PT/OT/SN/PEREZ/, [facility]. Meaningful Use Info Meaningful Use Diagnoses (Choose all that apply): None applicable Discharge Plan Admission Admit Date/Time: 09/29/21 15:55 Primary Reason for Your Visit: Debility. Attending Provider: Roberto Carlos Duenas Chi Consulting Providers: Alexandr Beltran ; Devin Oseguera Instructions Additional Instructions / Restrictions: Discharge initially to [facility] 10/17/2021, then officially home to [place], [place], Home Health Care PT/OT/SN/PEREZ/, [facility]. Discharge Orders/Prescriptions Prescriptions: New polysaccharide iron complex [Ferrex 150] 150 mg iron Capsule 150 mg PO DAILY 30 Days Qty: 30 RF: 0 midodrine 5 mg Tablet 10 mg PO TIDCM 30 Days Qty: 180 RF: 0 acetaminophen 500 mg Tablet 1,000 mg PO Q6H PRN PRN (Reason: Pain Score 1-5) Qty: 0 RF: 0 oxycodone 5 mg Tablet 5 mg PO Q4H PRN (Reason: Pain (Scale Score 6-10)) 7 Days Qty: 42 RF: 0 Hugo (with collagen) 7-7-1.5 gram Powder In Packet 1 packet PO BIDCM 30 Days Qty: 60 RF: 0 Continued polyethylene glycol 3350 [Miralax] 17 gram Powder In Packet 17 g PO DAILY RF: 0 ascorbic acid (vitamin C) [Vitamin C] 500 mg Tablet 1,000 mg PO DAILY RF: 0 tamsulosin [Flomax] 0.4 mg Capsule 0.4 mg PO DAILY RF: 0 pantoprazole 40 mg Tablet,Delayed Release (Dr/Ec) 40 mg PO BID RF: 0 ezetimibe [Zetia] 10 mg Tablet 10 mg PO DAILY RF: 0 Eliquis 5 mg Tablet 5 mg PO BID RF: 0 multivitamin Tablet 1 tab PO BREAKFAST RF: 0 atorvastatin 20 mg Tablet 20 mg PO QHS RF: 0 sennosides-docusate sodium [Senokot-S] 8.6-50 mg Tablet 1 tab-cap PO DAILY RF: 0 acyclovir 400 mg Tablet 400 mg PO BID RF: 0 melatonin 5 mg Tablet 5 mg PO QHS RF: 0 menthol-zinc oxide [Calmoseptine] 0.44-20.6 % Ointment 1 applic TOPICAL BID RF: 0 Discontinued polysaccharide iron complex [Ferrex 150] 150 mg iron Capsule 150 mg PO DAILY RF: 0 Ensure Compact Liquid 118 ml PO TIDCM RF: 0 midodrine 10 mg Tablet 10 mg PO TIDCM RF: 0 Eucerin Cream 1 applic TOPICAL DAILY RF: 0 acetaminophen [Tylenol] 325 mg Tablet 650 mg PO Q6H PRN PRN (Reason: Pain Score 1-10/Temp > 100.7 F) Qty: 0 RF: 0 albuterol sulfate 2.5 mg /3 mL (0.083 %) Solution For Nebulization 2.5 mg inhalation Q4H PRN (Reason: Shortness of Breath/Wheezing) Qty: 0 RF: 0 oxycodone 5 mg Tablet 5 mg PO Q4H PRN (Reason: Pain (Scale Score 6-10)) 5 Days Qty: 30 RF: 0 meropenem 1 gram recon soln 1 g IV Q8 RF: 0 Hugo (with collagen) 7-7-1.5 gram powder in packet 1 ea PO BIDCM RF: 0 Referrals / Follow Up: DELON DE GUZMAN [Other] Disposition Disposition (needs filled in before D/C Order can be placed): Home Health Service
[2021-10-08] MEDS: MELATONIN 10 MG TABLET 5 MG PO (22:01)
[2021-10-08] MEDS: Atorvastatin Calcium 20 MG Tablet PO (22:01)
[2021-10-09] MEDS: Menthol/Lanolin/Calamine/Znox 113 GM Tube 1 APPLIC TOPICAL ×2 (06:21→17:15)
[2021-10-09] MEDS: Ezetimibe 10 MG Tablet PO (06:23)
[2021-10-09] MEDS: APIXABAN 5 MG TABLET PO ×2 (06:23→17:12)
[2021-10-09] MEDS: Pantoprazole Sodium 40 MG Tablet PO ×2 (06:23→17:12)
[2021-10-09] MEDS: Polyethylene Glycol 3350 17 GM PACKET PO (06:23)
[2021-10-09] MEDS: Tamsulosin HCl 0.4 MG Capsule PO (06:23)
[2021-10-09] MEDS: Acyclovir 200 MG Capsule 400 MG PO ×2 (06:23→17:12)
[2021-10-09] MEDS: Iron Polysaccharide Complex 150 MG CAPSULE PO (06:24)
[2021-10-09] MEDS: Senna/Docusate Sodium 1 Tablet PO (06:25)
[2021-10-09 06:30] VITALS: BP 128/70; PULSE 61
[2021-10-09] MEDS: Juven (unflavored) Packet 1 PACKET PO ×2 (07:59→17:12)
[2021-10-09] MEDS: FLUCONAZOLE 150 MG TABLET PO (07:59)
[2021-10-09] MEDS: Multivitamins,Therapeutic Tablet 1 TABLET PO (08:00)
[2021-10-09] MEDS: Ascorbic Acid 500 MG Tablet 1000 MG PO (08:00)
[2021-10-09] MEDS: Midodrine HCl 5 MG Tablet 10 MG PO ×3 (08:00→17:12)
[2021-10-09] MEDS: Clotrimazole/Betamethasone 1 Tube 1 APPLIC TOPICAL ×2 (08:03→17:14)
--- NOTE | 2021-10-09 13:54 | NURSING ---
Left message for patients morteza Torsten notifying him that we have had a patient on TCU test positive for covid.
--- NOTE | 2021-10-09 14:07 | CASEMGMT ---
Social Work Received call from [facility] and they can accept pt but they need an order from pt's PCP once he is seen in the office. They cannot take out of state Dr. leyva. SW expressed understanding and just wanted them to have the paperwork and accept prior. Updated pt. Cherelle Goldman, BATTALION CHIEF DATA ASSISTANT
[2021-10-09 15:05] VITALS: BP 118/60; PULSE 74; RESP 16; TEMP 37.2; O2SAT 99
[2021-10-09] MEDS: MELATONIN 10 MG TABLET 5 MG PO (20:36)
[2021-10-09] MEDS: Atorvastatin Calcium 20 MG Tablet PO (20:37)
[2021-10-09 22:08] VITALS: PULSE 70; RESP 16
[2021-10-10] MEDS: Senna/Docusate Sodium 1 Tablet PO (05:17)
[2021-10-10] MEDS: Acyclovir 200 MG Capsule 400 MG PO ×2 (05:17→18:12)
[2021-10-10] MEDS: Iron Polysaccharide Complex 150 MG CAPSULE PO (05:17)
[2021-10-10] MEDS: Ezetimibe 10 MG Tablet PO (05:17)
[2021-10-10] MEDS: APIXABAN 5 MG TABLET PO ×2 (05:17→18:12)
[2021-10-10] MEDS: Tamsulosin HCl 0.4 MG Capsule PO (05:17)
[2021-10-10] MEDS: Pantoprazole Sodium 40 MG Tablet PO ×2 (05:17→18:12)
[2021-10-10] MEDS: Polyethylene Glycol 3350 17 GM PACKET PO (05:17)
[2021-10-10] MEDS: Menthol/Lanolin/Calamine/Znox 113 GM Tube 1 APPLIC TOPICAL ×2 (05:21→18:13)
[2021-10-10] MEDS: Ascorbic Acid 500 MG Tablet 1000 MG PO (07:52)
[2021-10-10] MEDS: Multivitamins,Therapeutic Tablet 1 TABLET PO (07:52)
[2021-10-10] MEDS: Juven (unflavored) Packet 1 PACKET PO ×2 (07:52→18:12)
[2021-10-10] MEDS: Midodrine HCl 5 MG Tablet 10 MG PO ×3 (07:52→18:12)
[2021-10-10] MEDS: Clotrimazole/Betamethasone 1 Tube 1 APPLIC TOPICAL ×2 (07:53→18:11)
--- NOTE | 2021-10-10 10:33 | MDS.RN ---
Information for the mds was obtained from review of the clinical record, interview of resident, staff, and direct observation of resident's care. Information systems, billing dept, and [employer] aware PDPM codes not generating with finalized mds assessments.
[2021-10-10 13:45] VITALS: BP 115/73; PULSE 68; RESP 18; TEMP 37.3; O2SAT 98
[2021-10-10 13:46] VITALS: PULSE 68
[2021-10-10] MEDS: MELATONIN 10 MG TABLET 5 MG PO (21:16)
[2021-10-10] MEDS: Atorvastatin Calcium 20 MG Tablet PO (21:17)
[2021-10-10] MEDS: oxyCODONE 5 MG Tablet PO (21:26)
[2021-10-11] MEDS: Menthol/Lanolin/Calamine/Znox 113 GM Tube 1 APPLIC TOPICAL ×2 (05:41→17:55)
[2021-10-11] MEDS: APIXABAN 5 MG TABLET PO ×2 (05:42→17:53)
[2021-10-11] MEDS: Senna/Docusate Sodium 1 Tablet PO (05:43)
[2021-10-11] MEDS: Ezetimibe 10 MG Tablet PO (05:43)
[2021-10-11] MEDS: Polyethylene Glycol 3350 17 GM PACKET PO (05:43)
[2021-10-11] MEDS: Pantoprazole Sodium 40 MG Tablet PO ×2 (05:43→17:53)
[2021-10-11] MEDS: Tamsulosin HCl 0.4 MG Capsule PO (05:43)
[2021-10-11] MEDS: Iron Polysaccharide Complex 150 MG CAPSULE PO (05:43)
[2021-10-11] MEDS: Acyclovir 200 MG Capsule 400 MG PO ×2 (05:44→17:53)
[2021-10-11] MEDS: Midodrine HCl 5 MG Tablet 10 MG PO ×3 (05:44→17:53)
[2021-10-11] MEDS: Juven (unflavored) Packet 1 PACKET PO ×2 (08:16→17:52)
[2021-10-11] MEDS: Multivitamins,Therapeutic Tablet 1 TABLET PO (08:17)
[2021-10-11] MEDS: Ascorbic Acid 500 MG Tablet 1000 MG PO (08:17)
[2021-10-11] MEDS: Clotrimazole/Betamethasone 1 Tube 1 APPLIC TOPICAL ×2 (08:19→17:54)
[2021-10-11 15:02] VITALS: BP 115/61; PULSE 80; RESP 16; TEMP 37.2; O2SAT 99
[2021-10-11] MEDS: Atorvastatin Calcium 20 MG Tablet PO (21:45)
[2021-10-11] MEDS: MELATONIN 10 MG TABLET 5 MG PO (21:45)
[2021-10-11 23:42] VITALS: PULSE 71; RESP 14; O2SAT 97
[2021-10-12] MEDS: Polyethylene Glycol 3350 17 GM PACKET PO (06:31)
[2021-10-12] MEDS: Ezetimibe 10 MG Tablet PO (06:32)
[2021-10-12] MEDS: Acyclovir 200 MG Capsule 400 MG PO ×2 (06:32→17:00)
[2021-10-12] MEDS: APIXABAN 5 MG TABLET PO ×2 (06:32→17:00)
[2021-10-12] MEDS: Pantoprazole Sodium 40 MG Tablet PO ×2 (06:32→17:00)
[2021-10-12] MEDS: Senna/Docusate Sodium 1 Tablet PO (06:32)
[2021-10-12] MEDS: Tamsulosin HCl 0.4 MG Capsule PO (06:33)
[2021-10-12] MEDS: Iron Polysaccharide Complex 150 MG CAPSULE PO (06:33)
[2021-10-12] MEDS: Menthol/Lanolin/Calamine/Znox 113 GM Tube 1 APPLIC TOPICAL ×2 (06:36→17:00)
[2021-10-12] MEDS: Juven (unflavored) Packet 1 PACKET PO ×2 (08:57→16:53)
[2021-10-12] MEDS: Multivitamins,Therapeutic Tablet 1 TABLET PO (08:58)
[2021-10-12] MEDS: Ascorbic Acid 500 MG Tablet 1000 MG PO (08:58)
[2021-10-12] MEDS: Midodrine HCl 5 MG Tablet 10 MG PO ×3 (08:58→16:54)
[2021-10-12] MEDS: Clotrimazole/Betamethasone 1 Tube 1 APPLIC TOPICAL ×2 (10:09→17:00)
[2021-10-12 10:20] VITALS: PULSE 79; RESP 18; O2SAT 96
[2021-10-12 16:11] VITALS: BP 123/63; PULSE 67; RESP 16; TEMP 37; O2SAT 96
[2021-10-12] MEDS: MELATONIN 10 MG TABLET 5 MG PO (21:54)
[2021-10-12] MEDS: Atorvastatin Calcium 20 MG Tablet PO (21:54)
[2021-10-13] MEDS: Ezetimibe 10 MG Tablet PO (06:06)
[2021-10-13] MEDS: Senna/Docusate Sodium 1 Tablet PO (06:06)
[2021-10-13] MEDS: Pantoprazole Sodium 40 MG Tablet PO ×2 (06:06→17:26)
[2021-10-13] MEDS: Polyethylene Glycol 3350 17 GM PACKET PO (06:06)
[2021-10-13] MEDS: Acyclovir 200 MG Capsule 400 MG PO ×2 (06:06→17:26)
[2021-10-13] MEDS: APIXABAN 5 MG TABLET PO ×2 (06:06→17:27)
[2021-10-13] MEDS: Tamsulosin HCl 0.4 MG Capsule PO (06:06)
[2021-10-13] MEDS: Iron Polysaccharide Complex 150 MG CAPSULE PO (06:06)
[2021-10-13] MEDS: Menthol/Lanolin/Calamine/Znox 113 GM Tube 1 APPLIC TOPICAL ×2 (06:14→17:27)
[2021-10-13] MEDS: Ascorbic Acid 500 MG Tablet 1000 MG PO (08:02)
[2021-10-13] MEDS: Multivitamins,Therapeutic Tablet 1 TABLET PO (08:02)
[2021-10-13] MEDS: Juven (unflavored) Packet 1 PACKET PO ×2 (08:02→17:25)
[2021-10-13] MEDS: Midodrine HCl 5 MG Tablet 10 MG PO ×3 (08:02→17:29)
[2021-10-13 08:03] VITALS: BP 131/64; PULSE 62
[2021-10-13 13:01] VITALS: BP 99/58; PULSE 74; RESP 20; TEMP 37.1; O2SAT 98
[2021-10-13 17:31] VITALS: BP 130/74; PULSE 68
[2021-10-13] MEDS: Atorvastatin Calcium 20 MG Tablet PO (22:07)
[2021-10-13] MEDS: MELATONIN 10 MG TABLET 5 MG PO (22:07)
[2021-10-14] MEDS: oxyCODONE 5 MG Tablet PO (01:02)
[2021-10-14] MEDS: Polyethylene Glycol 3350 17 GM PACKET PO (05:20)
[2021-10-14] MEDS: Senna/Docusate Sodium 1 Tablet PO (05:20)
[2021-10-14] MEDS: Tamsulosin HCl 0.4 MG Capsule PO (05:20)
[2021-10-14] MEDS: Pantoprazole Sodium 40 MG Tablet PO ×2 (05:20→17:31)
[2021-10-14] MEDS: Iron Polysaccharide Complex 150 MG CAPSULE PO (05:20)
[2021-10-14] MEDS: Midodrine HCl 5 MG Tablet 10 MG PO ×3 (05:20→17:30)
[2021-10-14] MEDS: APIXABAN 5 MG TABLET PO ×2 (05:20→17:29)
[2021-10-14] MEDS: Acyclovir 200 MG Capsule 400 MG PO ×2 (05:20→17:35)
[2021-10-14] MEDS: Ezetimibe 10 MG Tablet PO (05:20)
[2021-10-14] MEDS: Menthol/Lanolin/Calamine/Znox 113 GM Tube 1 APPLIC TOPICAL (05:21)
[2021-10-14 05:24] LABS: Absolute Lymphocyte Count 2.18 X10^3/uL (0.83-4.51); Absolute Neutrophil Count 3.4 X10^3/uL (2.0-7.7); Basophil# 0.11 X10^3/uL; Basophil% 1.5 % (0-1); Eosinophil# 0.66 X10^3/uL; Hematocrit 29.6 % (40-54); Hemoglobin 9.3 g/dL (13.0-16.5); Lymphocyte # 2.18 X10^3/ul (0.83-4.51); Lymphocyte % 29.8 % (19-41); Mean Corp Hgb Conc 31.4 g/dL (32-36); Mean Corpuscular Hgb 29.1 pg (27.0-32.0); Mean Corpuscular Volume 92.5 fL (80-94); Mean Platelet Vol. 10.7 fl (6.2-12.0); Monocyte# 0.98 X10^3/uL; Monocyte% 13.4 % (0-10); NRBC Flagged by Analyzer 0 % (0-5); Neutrophil # 3.37 X10^3/uL (2.7-7.7); Platelet Count 170 K/mm3 (150-450); RBC Distribution Width CV 14.9 % (11.6-14.6); RBC Distribution Width SD 50.2 fl (35.1-43.9); White Blood Count 7.3 K/mm3 (4.4-11.0)
[2021-10-14 05:51] LABS: Anion Gap 4 (5-15); BUN 24 mg/dL (7-18); BUN/Creat Ratio 33.4 RATIO (10-20); Calcium,Total 8.2 mg/dL (8.5-10.1); Chloride 106 mmol/L (98-107); Creatinine, Serum 0.72 mg/dL (0.70-1.30); EST Glomerular Filtration Rate 112 mL/min (>60); Est Glom Filt Rate - Afr Amer 136 mL/min (>60); Estimated Creatinine Clearance 54.99 ml/min; Glucose 86 mg/dL (74-106); Potassium 4.1 mmol/L (3.5-5.1); Sodium Level 138 mmol/L (136-145)
[2021-10-14] MEDS: Juven (unflavored) Packet 1 PACKET PO ×2 (08:57→17:29)
[2021-10-14] MEDS: Multivitamins,Therapeutic Tablet 1 TABLET PO (08:57)
[2021-10-14] MEDS: Ascorbic Acid 500 MG Tablet 1000 MG PO (08:58)
[2021-10-14 09:05] VITALS: PULSE 79; RESP 18; O2SAT 96
[2021-10-14 13:36] VITALS: BP 121/66; PULSE 73; RESP 18; TEMP 37.1; O2SAT 100
--- NOTE | 2021-10-14 15:30 | CHAPLAIN ---
Type of Pastoral Visit ___ Initial Visit _x__ Follow-up Visit ___ On-call Visit ___ General Patient Visit ___ Spiritual Assessment ___ Family Conference ___ Bereavement ___ Rapid Response ___ Code Blue ___ Other (describe below) Pastoral Care Referral From _x__ Patient ___ Family ___ Nurse ___ Physician ___ Supervisor Assembling ___ Service Attendant ___ Other (describe below) Sacrament/Intervention _x__ Active listening ___ Anointing ___ Temple ___ Bereavement ___ Communion ___ Christina exploration ___ ___ Life review _x__ Prayer ___ Reconciliation ___ Sacrament of Sick ___ Supportive presence ___ Wedding ___ Other (describe below) Pastoral Comments patient stresses that improvement is clearly seen and realized; pt is optimistic about going home at end of the week; pt has some goals for his future and looking forward to those and the fact it keeps his mind busy and on others things than his leg; prayer always welcomed
[2021-10-14] MEDS: Atorvastatin Calcium 20 MG Tablet PO (21:26)
[2021-10-14] MEDS: MELATONIN 10 MG TABLET 5 MG PO (21:26)
[2021-10-15] MEDS: Polyethylene Glycol 3350 17 GM PACKET PO (06:21)
[2021-10-15] MEDS: Pantoprazole Sodium 40 MG Tablet PO ×2 (06:22→17:51)
[2021-10-15] MEDS: Tamsulosin HCl 0.4 MG Capsule PO (06:22)
[2021-10-15] MEDS: Ezetimibe 10 MG Tablet PO (06:23)
[2021-10-15] MEDS: Acyclovir 200 MG Capsule 400 MG PO ×2 (06:23→17:51)
[2021-10-15] MEDS: Menthol/Lanolin/Calamine/Znox 113 GM Tube 1 APPLIC TOPICAL (06:23)
[2021-10-15] MEDS: APIXABAN 5 MG TABLET PO ×2 (06:23→17:51)
[2021-10-15] MEDS: Midodrine HCl 5 MG Tablet 10 MG PO ×3 (06:23→17:51)
[2021-10-15] MEDS: Senna/Docusate Sodium 1 Tablet PO (06:23)
[2021-10-15] MEDS: Iron Polysaccharide Complex 150 MG CAPSULE PO (06:23)
[2021-10-15] MEDS: Ascorbic Acid 500 MG Tablet 1000 MG PO (08:35)
[2021-10-15] MEDS: Multivitamins,Therapeutic Tablet 1 TABLET PO (08:35)
[2021-10-15] MEDS: Juven (unflavored) Packet 1 PACKET PO ×2 (08:35→17:51)
[2021-10-15 15:16] VITALS: BP 114/52; PULSE 61; RESP 18; TEMP 36.7; O2SAT 98
--- NOTE | 2021-10-15 15:16 | WOUNDNOTE ---
wound photo: left medial lower leg
--- NOTE | 2021-10-15 15:16 | WOUNDNOTE ---
wound photo: left posterolateral lower leg
[2021-10-15] MEDS: Atorvastatin Calcium 20 MG Tablet PO (20:18)
[2021-10-15] MEDS: MELATONIN 10 MG TABLET 5 MG PO (20:19)
[2021-10-16] MEDS: Polyethylene Glycol 3350 17 GM PACKET PO (05:32)
[2021-10-16] MEDS: Midodrine HCl 5 MG Tablet 10 MG PO ×3 (05:35→16:55)
[2021-10-16] MEDS: Acyclovir 200 MG Capsule 400 MG PO ×2 (05:35→16:57)
[2021-10-16] MEDS: Senna/Docusate Sodium 1 Tablet PO (05:35)
[2021-10-16] MEDS: APIXABAN 5 MG TABLET PO ×2 (05:35→16:56)
[2021-10-16] MEDS: Pantoprazole Sodium 40 MG Tablet PO ×2 (05:35→16:57)
[2021-10-16] MEDS: Tamsulosin HCl 0.4 MG Capsule PO (05:35)
[2021-10-16] MEDS: Iron Polysaccharide Complex 150 MG CAPSULE PO (05:35)
[2021-10-16] MEDS: Ezetimibe 10 MG Tablet PO (05:35)
[2021-10-16] MEDS: Menthol/Lanolin/Calamine/Znox 113 GM Tube 1 APPLIC TOPICAL (05:36)
[2021-10-16] MEDS: Juven (unflavored) Packet 1 PACKET PO ×2 (07:54→16:55)
[2021-10-16] MEDS: Multivitamins,Therapeutic Tablet 1 TABLET PO (07:54)
[2021-10-16] MEDS: Ascorbic Acid 500 MG Tablet 1000 MG PO (07:54)
[2021-10-16 13:52] VITALS: BP 116/57; PULSE 72; RESP 16; TEMP 36.2; O2SAT 98
--- NOTE | 2021-10-16 14:40 | MDS.RN ---
Pain assessment completed on this day for the mdslc 10/17/21
[2021-10-16] MEDS: MELATONIN 10 MG TABLET 5 MG PO (20:26)
[2021-10-16] MEDS: Atorvastatin Calcium 20 MG Tablet PO (20:27)
[2021-10-16] MEDS: oxyCODONE 5 MG Tablet PO (23:46)
[2021-10-17] MEDS: Polyethylene Glycol 3350 17 GM PACKET PO (05:28)
[2021-10-17] MEDS: Tamsulosin HCl 0.4 MG Capsule PO (05:28)
[2021-10-17] MEDS: Acyclovir 200 MG Capsule 400 MG PO (05:28)
[2021-10-17] MEDS: Iron Polysaccharide Complex 150 MG CAPSULE PO (05:28)
[2021-10-17] MEDS: APIXABAN 5 MG TABLET PO (05:28)
[2021-10-17] MEDS: Pantoprazole Sodium 40 MG Tablet PO (05:28)
[2021-10-17] MEDS: Ezetimibe 10 MG Tablet PO (05:28)
[2021-10-17] MEDS: Menthol/Lanolin/Calamine/Znox 113 GM Tube 1 APPLIC TOPICAL (05:34)
[2021-10-17] MEDS: Midodrine HCl 5 MG Tablet 10 MG PO (08:13)
[2021-10-17] MEDS: Ascorbic Acid 500 MG Tablet 1000 MG PO (08:13)
[2021-10-17] MEDS: Juven (unflavored) Packet 1 PACKET PO (08:13)
[2021-10-17] MEDS: Multivitamins,Therapeutic Tablet 1 TABLET PO (08:13)
--- NOTE | 2021-10-17 08:49 | WOUNDNOTE ---
Pt is being discharged today. wound VAC dressing changed and patient switched over to the ready care VAC. patient will be flying back to [place], [place] tomorrow. C had been arranged per ADA Villarreal. reviewed alarms, etc. with patient. pt aware how to return the wound VAC. proof of delivery form signed and faxed to [facility]. pt denies questions. very appreciative of care.
[2021-10-17 10:23] VITALS: BP 101/54; PULSE 65; RESP 16; TEMP 36.9; O2SAT 97
== END 2021-10-17 10:41 | disposition home health service (06) | DRG 603 ==
PROVIDERS: Admitting Provider Family Medicine Geriatric Medicine; Visit Provider Family Medicine Geriatric Medicine
DX: L02.416 Cutaneous abscess of left lower limb (principal); D69.3 Immune thrombocytopenic purpura; N39.0 Urinary tract infection, site not specified; Z16.12 Extended spectrum beta lactamase (ESBL) resistance; I48.91 Unspecified atrial fibrillation; D50.9 Iron deficiency anemia, unspecified; B96.20 Unspecified Escherichia coli [E. coli] as the cause of diseases classified elsewhere; E78.5 Hyperlipidemia, unspecified; I95.1 Orthostatic hypotension; K21.9 Gastro-esophageal reflux disease without esophagitis; N40.0 Benign prostatic hyperplasia without lower urinary tract symptoms; L03.116 Cellulitis of left lower limb; Z87.891 Personal history of nicotine dependence; Z79.01 Long term (current) use of anticoagulants; Z79.899 Other long term (current) drug therapy; Z23 Encounter for immunization
CPT/HCPCS: 36415; 80048; 85025; 87426; 90732; 97110; 97116; 97162; 97166; 97530; 97535; 97802; G0009; J2185; J2997; J7050; A4216